=== PATIENT | male | born 1965 | race Caucasian/White ===

== ENCOUNTER 2018-10-24 14:14 | Emergency (ER) | payer BC ==
--- NOTE | 2018-10-24 15:12 | EDM.PDOC ---
ED HPI GENERAL MEDICAL PROBLEM - General Chief Complaint: Upper Extremity Injury/Pain Stated Complaint: LEFT SIDE NUMBNESS Time Seen by Provider: 10/24/18 14:31 Source of Information: Reports: Patient History Limitations: Reports: No Limitations - History of Present Illness INITIAL COMMENTS - FREE TEXT/NARRATIVE: HISTORY AND PHYSICAL: History of present illness: Patient is a 53 year old male who presents to the ED today for concerns of left hand numbness and tingling x 1 month. Patient states the symptoms are worse at night when he is trying to sleep and that he will wake up in the middle of the night with his hand numb. Patient has an appointment with his primary care provider next week for these symptoms. Patient has not taken anything for his pain and discomfort. Patient denies weakness of the arm or leg. He denies any facial weakness or numbness. Patient denies fever, chills, chest pain, shortness of breath, or cough. Denies headache, neck stiff ness, change in vision, syncope, or near syncope. Denies nausea, vomiting, abdominal pain, diarrhea, constipation, or dysuria. Has not noted any blood in urine or stool. Patient has been eating and drinking appropriately. Review of systems: As per history of present illness and below otherwise all systems reviewed and negative. Past medical history: As per history of present illness and as reviewed below otherwise noncontributory. Surgical history: As per history of present illness and as reviewed below otherwise noncontributory. Social history: See social history for further information Family history: As per history of present illness and as reviewed below otherwise noncontributory. Physical exam: General: Patient is alert, oriented, and in no acute distress. Patient sitting comfortably on exam table. HEENT: Atraumatic, normocephalic, pupils equal and reactive bilaterally, negative for conjunctival pallor or scleral icterus, mucous membranes moist, TMs normal bilaterally, throat clear, neck supple, nontender, trachea midline. No drooling or trismus noted. No meningeal signs. No hot potato voice noted. Lungs: Clear to auscultation, breath sounds equal bilaterally, chest nontender. Heart: S1S2, regular rate and rhythm without overt murmur Abdomen: Soft, nondistended, nontender. Negative for masses or hepatosplenomegaly. Negative for costovertebral tenderness. Pelvis: Stable nontender. Genitourinary: Deferred. Rectal: Deferred. Skin: Intact, warm, dry. No lesions or rashes noted. Extremities: Positive Phalen and Tinel sign of left hand. Radial pulse of left hand grossly intact. Capillary refill less than 2 seconds. Otherwise, atraumatic , negative for cords or calf pain. Neurovascular unremarkable. Neuro: Awake, alert, oriented. Cranial nerves II through XII unremarkable. Cerebellum unremarkable. Motor and sensory unremarkable throughout. Exam nonfocal. Notes: Patient's description of tingling and numbness in his hand was recurred on exam Phalen and Tinel sign. Did offer imaging to patient but he declines at this time. Supportive care measures were reviewed and discussed. Voices understanding and is agreeable to plan of care. Denies any further questions or concerns at this time. Diagnostics: None Therapeutics: Wrist splint cockup Prescription: None Impression: Carpal tunnel, right him Plan: 1. Rest the affected extremity. Apply splint provided today at night or as needed for comfort. 2. Tylenol and/or Ibuprofen as directed for pain management or discomfort. 3. Follow up with your primary care provider as discussed. Return to the ED as needed and as discussed. Definitive disposition and diagnosis as appropriate pending reevaluation and review of above. Left Arm Pain Score (Numeric/FACES): 3 - Related Data Allergies Allergy/AdvReac Type Severity Reaction Status Date / Time Anesthetics - Brenna Type- Allergy Chest Pain Verified 08/17/18 14:21 Parabens [Anesthetics - Brenna Type] morphine Allergy Other Verified 08/17/18 14:21 Home Meds: Home Meds Lisinopril 5 mg PO DAILY 10/24/18 [History] Tadalafil [Cialis] 1 tab PO DAILY 10/24/18 [History] amLODIPine [Norvasc] 1 tab PO DAILY 10/24/18 [History] Past Medical History Cardiovascular History: Reports: Hypertension Other Gastrointestinal History: pyloric stenosis as a child - Infectious Disease History Infectious Disease History: Reports: Chicken Pox - Past Surgical History Other Musculoskeletal Surgeries/Procedures:: right femer Social & Family History - Family History Family Medical History: Noncontributory - Tobacco Use Smoking Status *Q: Never Smoker - Caffeine Use Caffeine Use: Reports: Coffee, Tea - Recreational Drug Use Recreational Drug Use: No Review of Systems - Review of Systems Review Of Systems: ROS reveals no pertinent complaints other than HPI. ED EXAM, GENERAL - Physical Exam Exam: See Below (see dictation) Course - Vital Signs Last Recorded V/S: Last Vital Signs Temp 36.2 C 10/24/18 14:22 Pulse 80 10/24/18 14:22 Resp 18 10/24/18 14:22 BP 147/90 H 10/24/18 14:22 Pulse Ox 99 10/24/18 14:22 - Orders/Labs/Meds Orders: Active Orders 24 hr Category Date Time Status DME for Discharge [COMM] Stat Oth 10/24/18 15:12 Ordered Departure - Departure Time of Disposition: 15:12 Disposition: Home, Self-Care 01 Clinical Impression: Carpal tunnel syndrome of left wrist - Discharge Information Instructions: Carpal Tunnel Syndrome Referrals: Odell Tirado MD [Primary Care Provider] - Forms: ED Department Discharge Additional Instructions: The following information is given to patients seen in the emergency department who are being discharged to home. This information is to outline your options for follow-up care. We provide all patients seen in our emergency department with a follow-up referral. The need for follow-up, as well as the timing and circumstances, are variable depending upon the specifics of your emergency department visit. If you don't have a primary care physician on staff, we will provide you with a referral. We always advise you to contact your personal physician following an emergency department visit to inform them of the circumstance of the visit and for follow-up with them and/or the need for any referrals to a consulting specialist. The emergency department will also refer you to a specialist when appropriate. This referral assures that you have the opportunity for follow-up care with a specialist. All of these measure are taken in an effort to provide you with optimal care, which includes your follow-up. Under all circumstances we always encourage you to contact your private physician who remains a resource for coordinating your care. When calling for follow-up care, please make the office aware that this follow-up is from your recent emergency room visit. If for any reason you are refused follow-up, please contact the [facility] at and asked to speak to the emergency department charge nurse. [facility] [address] [place] [address] [id number] [address] [address] 1. Rest the affected extremity. Apply splint provided today at night or as needed for comfort. 2. Tylenol and/or Ibuprofen as directed for pain management or discomfort. 3. Follow up with your primary care provider as discussed. Return to the ED as needed and as discussed. - My Orders Last 24 Hours: My Active Orders 10/24/18 15:12 DME for Discharge [COMM] Stat - Assessment/Plan Last 24 Hours: My Active Orders 10/24/18 15:12 DME for Discharge [COMM] Stat
[2018-10-24 15:35] VITALS: BP 162/99
== END 2018-10-24 15:35 | disposition home or self-care (01) ==
LOC: MW.ED 14:14
DX: G56.02 Carpal tunnel syndrome, left upper limb (principal); I10 Essential (primary) hypertension; Z88.4 Allergy status to anesthetic agent; Z88.5 Allergy status to narcotic agent
CPT/HCPCS: 99282; 99283

== ENCOUNTER 2019-08-18 11:55 | Emergency (ER) | payer BC ==
[2019-08-18] MEDS ORDERED: Sodium Chloride 0.9% 10 ML Syringe FLUSH PRN (12:03)
[2019-08-18] MEDS ORDERED: Sodium Chloride 0.9% 2.5 ML Syringe FLUSH PRN (12:03)
[2019-08-18] MEDS ORDERED: Lactated Ringers 1,000 ML IV STA (12:42)
--- NOTE | 2019-08-18 12:42 | EDM.PDOC ---
ED HPI GENERAL MEDICAL PROBLEM - General Chief Complaint: Abdominal Pain Stated Complaint: ABDOMINAL PAIN Time Seen by Provider: 08/18/19 12:02 Source of Information: Reports: Patient History Limitations: Reports: No Limitations - History of Present Illness INITIAL COMMENTS - FREE TEXT/NARRATIVE: HISTORY AND PHYSICAL: History of present illness: Patient is a 53-year-old male who presents to the emergency room with complaints of right lower quadrant pain x3 days. He states that the pain has been fluctuating between sharp and dull. He has had some decrease in appetite and dull nausea. Patient denies any fever, chills, headache, change in vision, syncope or near syncope. Denies any chest pain, back pain, shortness of breath or cough. Denies any vomiting, diarrhea, constipation or dysuria. Has not noted any blood in urine or stool. Patient has been eating and drinking appropriately. States he is a daily drinker, drinking 2-3 beverages per night. Review of systems: As per history of present illness and below otherwise all systems reviewed and negative. Past medical history: As per history of present illness and as reviewed below otherwise noncontributory. Surgical history: As per history of present illness and as reviewed below otherwise noncontributory. Social history: See social history for further information Family history: As per history of present illness and as reviewed below otherwise noncontributory. Physical exam: General: Well-developed and well-nourished 53-year-old male. Alert and oriented. Nontoxic-appearing and in no acute distress. HEENT: Atraumatic, normocephalic, pupils equal and reactive bilaterally, negative for conjunctival pallor or scleral icterus, mucous membranes moist, TMs normal bilaterally, throat clear, neck supple, nontender, trachea midline. No drooling or trismus noted. No meningeal signs. No hot potato voice noted. Lungs: Clear to auscultation, breath sounds equal bilaterally, chest nontender. Heart: S1S2, regular rate and rhythm without overt murmur Abdomen: Soft, nondistended, right lower quadrant pain with mild rebound tenderness. Negative for masses or hepatosplenomegaly. Negative for costovertebral tenderness. Skin: Intact, warm, dry. No lesions or rashes noted. Extremities: Atraumatic, moves all extremities per self without difficulty or deficits, negative for cords or calf pain. Neurovascular unremarkable. Neuro: Awake, alert, oriented. Cranial nerves II through XII unremarkable. Cerebellum unremarkable. Motor and sensory unremarkable throughout. Exam nonfocal. Notes: Declines wanting anything for pain at this time. Full to lab and CT. Lab work and CT of the abdomen and pelvis are unremarkable. Vital signs remained stable. Supportive care measures were reviewed and discussed. Voices understanding and is agreeable to plan of care. Denies any further questions or concerns at this time. Diagnostics: CBC, CMP, Lipase, UA, CT abd/pelvis Therapeutics: LR Prescription: None Impression: Abdominal Pain Plan: 1. White diet, advance as tolerated. Increase your oral fluids to prevent dehydration 2. Tylenol and/or Ibuprofen as needed for pain 3. Follow up with your primary care provider as we discussed. Return to the ED as needed as discussed. Definitive disposition and diagnosis as appropriate pending reevaluation and review of above. RLQ Pain Score (Numeric/FACES): 4 - Related Data Allergies Allergy/AdvReac Type Severity Reaction Status Date / Time Anesthetics - Brenna Type- Allergy Chest Pain Verified 08/18/19 12:18 Parabens [Anesthetics - Brenna Type] morphine Allergy Other Verified 08/18/19 12:18 Home Meds: Home Meds . [No Known Home Meds] 08/18/19 [History] Past Medical History Cardiovascular History: Reports: Hypertension Other Gastrointestinal History: pyloric stenosis as a child - Infectious Disease History Infectious Disease History: Reports: Chicken Pox - Past Surgical History Other Musculoskeletal Surgeries/Procedures:: right femer Social & Family History - Family History Family Medical History: Noncontributory - Tobacco Use Smoking Status *Q: Never Smoker Second Hand Smoke Exposure: No - Caffeine Use Caffeine Use: Reports: None - Recreational Drug Use Recreational Drug Use: No ED ROS GENERAL - Review of Systems Review Of Systems: Comprehensive ROS is negative, except as noted in HPI. ED EXAM, GI/ABD - Physical Exam Exam: See Below (See dictation) Course - Vital Signs Last Recorded V/S: Last Vital Signs Temp 98.9 F 08/18/19 12:19 Pulse 74 08/18/19 12:19 Resp 16 08/18/19 12:19 BP 171/85 H 08/18/19 12:19 Pulse Ox 98 08/18/19 12:19 - Orders/Labs/Meds Orders: Active Orders 24 hr Category Date Time Status Lactated Ringers [Ringers, Lactated] 1,000 ml Med 08/18/19 12:42 Active IV NOW Sodium Chloride 0.9% [Saline Flush] Med 08/18/19 12:03 Active 10 ml FLUSH ASDIRECTED PRN Sodium Chloride 0.9% [Saline Flush] Med 08/18/19 12:03 Active 2.5 ml FLUSH ASDIRECTED PRN Saline Lock Insert [OM.PC] Stat Oth 08/18/19 12:03 Ordered Medication Orders Lactated Ringer's (Ringers, Lactated) 1,000 mls @ 200 mls/hr IV NOW STA Stop: 08/18/19 17:41 Last Admin: 08/18/19 12:45 Dose: 200 mls/hr Sodium Chloride (Saline Flush) 10 ml FLUSH ASDIRECTED PRN PRN Reason: Keep Vein Open Sodium Chloride (Saline Flush) 2.5 ml FLUSH ASDIRECTED PRN PRN Reason: Keep Vein Open Labs: Laboratory Tests 08/18/19 08/18/19 08/18/19 Range/Units 12:50 12:50 13:25 WBC 4.77 (4.0-11.0) K/uL RBC 4.98 (4.50-5.90) M/uL Hgb 15.4 (13.0-17.0) g/dL Hct 47.3 (38.0-50.0) % MCV 95.0 (80.0-98.0) fL MCH 30.9 (27.0-32.0) pg MCHC 32.6 (31.0-37.0) g/dL RDW Std Deviation 47.7 (28.0-62.0) fl RDW Coeff of Leila 14 (11.0-15.0) % Plt Count 226 (150-400) K/uL MPV 10.60 (7.40-12.00) fL Neut % (Auto) 62.5 (48.0-80.0) % Lymph % (Auto) 25.2 (16.0-40.0) % [place] % (Auto) 10.3 (0.0-15.0) % Eos % (Auto) 1.0 (0.0-7.0) % Baso % (Auto) 1.0 (0.0-1.5) % Neut # (Auto) 3.0 (1.4-5.7) K/uL Lymph # (Auto) 1.2 (0.6-2.4) K/uL [place] # (Auto) 0.5 (0.0-0.8) K/uL Eos # (Auto) 0.1 (0.0-0.7) K/uL Baso # (Auto) 0.1 (0.0-0.1) K/uL Nucleated RBC % 0.0 /100WBC Nucleated RBCs # 0 K/uL Sodium 141 (136-148) mmol/L Potassium 4.1 (3.5-5.1) mmol/L Chloride 106 (98-107) mmol/L Carbon Dioxide 26.3 (21.0-32.0) mmol/L BUN 11 (7.0-18.0) mg/dL Creatinine 0.9 (0.8-1.3) mg/dL Est Cr Clr Drug Dosing 86.64 mL/min Estimated GFR (MDRD) > 60.0 ml/min Glucose 101 (74-106) mg/dL Calcium 8.7 (8.5-10.1) mg/dL Total Bilirubin 1.1 H (0.2-1.0) mg/dL AST 24 (15-37) IU/L ALT 38 (14-63) IU/L Alkaline Phosphatase 83 (46-116) U/L Total Protein 7.5 (6.4-8.2) g/dL Albumin 3.8 (3.4-5.0) g/dL Globulin 3.7 (2.6-4.0) g/dL Albumin/Globulin Ratio 1.0 (0.9-1.6) Lipase 151 (73-393) U/L Urine Color YELLOW Urine Appearance CLEAR Urine pH 6.0 (5.0-8.0) Ur Specific [place] 1.020 (1.001-1.035) Urine Protein NEGATIVE (NEGATIVE) mg/dL Urine Glucose (UA) NEGATIVE (NEGATIVE) mg/dL Urine Ketones NEGATIVE (NEGATIVE) mg/dL Urine Occult Blood NEGATIVE (NEGATIVE) Urine Nitrite NEGATIVE (NEGATIVE) Urine Bilirubin NEGATIVE (NEGATIVE) Urine Urobilinogen 1.0 (<2.0) EU/dL Ur Leukocyte Esterase NEGATIVE (NEGATIVE) Meds: Medications Generic Name Dose Route Start Last Admin Trade Name Freq PRN Reason Stop Dose Admin Lactated Ringer's 1,000 mls @ 200 mls/hr 08/18/19 12:42 08/18/19 12:45 Ringers, Lactated IV 08/18/19 17:41 200 mls/hr NOW STA Administration Sodium Chloride 10 ml 08/18/19 12:03 Saline Flush FLUSH ASDIRECTED PRN Keep Vein Open Sodium Chloride 2.5 ml 08/18/19 12:03 Saline Flush FLUSH ASDIRECTED PRN Keep Vein Open Discontinued Medications Generic Name Dose Route Start Last Admin Trade Name Freq PRN Reason Stop Dose Admin Iopamidol 100 ml 08/18/19 14:55 08/18/19 14:56 Isovue Multipack-370 (76%) IVPUSH 08/18/19 14:56 100 ml ONETIME ONE Administration Departure - Departure Time of Disposition: 15:31 Disposition: Home, Self-Care 01 Clinical Impression: Abdominal pain Qualifiers: Abdominal location: generalized Qualified Code(s): R10.84 - Generalized abdominal pain - Discharge Information Instructions: Abdominal Pain, Adult, [id number] Referrals: Odell Tirado MD [Primary Care Provider] - Forms: ED Department Discharge Additional Instructions: The following information is given to patients seen in the emergency department who are being discharged to home. This information is to outline your options for follow-up care. We provide all patients seen in our emergency department with a follow-up referral. The need for follow-up, as well as the timing and circumstances, are variable depending upon the specifics of your emergency department visit. If you don't have a primary care physician on staff, we will provide you with a referral. We always advise you to contact your personal physician following an emergency department visit to inform them of the circumstance of the visit and for follow-up with them and/or the need for any referrals to a consulting specialist. The emergency department will also refer you to a specialist when appropriate. This referral assures that you have the opportunity for follow-up care with a specialist. All of these measure are taken in an effort to provide you with optimal care, which includes your follow-up. Under all circumstances we always encourage you to contact your private physician who remains a resource for coordinating your care. When calling for follow-up care, please make the office aware that this follow-up is from your recent emergency room visit. If for any reason you are refused follow-up, please contact the [facility] Department at and asked to speak to the emergency department charge nurse. [facility] [address] [place] [address] [facility] [address] [place] [id number] 1. All labs and imagining were normal today. White diet, advance as tolerated. Increase your oral fluids to prevent dehydration 2. Tylenol and/or Ibuprofen as needed for pain 3. Follow up with your primary care provider as we discussed. Return to the ED as needed as discussed. Sepsis Event Note - Evaluation Sepsis Screening Result: No Definite Risk - Focused Exam Vital Signs: Vital Signs Temp Pulse Resp BP Pulse Ox 08/18/19 12:19 98.9 F 74 16 171/85 H 98 Date Exam was Performed: 08/18/19 Time Exam was Performed: 15:30 - My Orders Last 24 Hours: My Active Orders 08/18/19 12:03 Sodium Chloride 0.9% [Saline Flush] 10 ml FLUSH ASDIRECTED PRN Sodium Chloride 0.9% [Saline Flush] 2.5 ml FLUSH ASDIRECTED PRN Saline Lock Insert [OM.PC] Stat 08/18/19 12:42 Lactated Ringers [Ringers, Lactated] 1,000 ml IV NOW - Assessment/Plan Last 24 Hours: My Active Orders 08/18/19 12:03 Sodium Chloride 0.9% [Saline Flush] 10 ml FLUSH ASDIRECTED PRN Sodium Chloride 0.9% [Saline Flush] 2.5 ml FLUSH ASDIRECTED PRN Saline Lock Insert [OM.PC] Stat 08/18/19 12:42 Lactated Ringers [Ringers, Lactated] 1,000 ml IV NOW
[2019-08-18 14:06] LABS: BLOOD UREA NITROGEN,BUN 11 mg/dL (7.0-18.0); CARBON DIOXIDE,CO2 26.3 mmol/L (21.0-32.0); CHLORIDE,CL 106 mmol/L (98-107); GLUCOSE RANDOM 101 mg/dL (74-106); LIPASE 151 U/L (73-393); POTASSIUM,K 4.1 mmol/L (3.5-5.1); SODIUM,NA 141 mmol/L (136-148)
[2019-08-18] MEDS ORDERED: Iopamidol 755 MG/ML 200 ML Multipack Bottle IVPUSH ONE (14:55)
--- NOTE | 2019-08-18 15:25 | CT ---
CT abdomen and pelvis Technique: Multiple axial sections were obtained from above the dome of the diaphragm inferiorly through the pubic symphysis. Intravenous contrast was utilized. No oral contrast has been given. Findings: Small hiatal hernia is noted. Visualized lung bases show nothing acute. Liver contains no focal abnormality. Spleen appears within normal limits. Adrenal glands show no nodule. Pancreas is within normal limits. Gallbladder contains no calcified gallstones. Kidneys show symmetric contrast enhancement without hydronephrosis or mass. Aorta shows no aneurysm. No retroperitoneal adenopathy or mesenteric abnormalities are seen. No pelvic mass or adenopathy is seen. No free fluid or inflammatory change is seen. Mild diverticuli are seen within the sigmoid colon without diverticulitis. Appendix is seen and felt to be normal in size with no surrounding inflammatory change.. Bone window settings were reviewed which appear within normal limits for the patient's age. Impression: 1. Appendix is seen and is normal in size without any surrounding inflammatory change. 2. Other findings believed to be incidental as noted above. 3. Nothing acute is appreciated on CT study of the abdomen and pelvis. Diagnostic code #2 This report was dictated in [place] Standard Time
[2019-08-18 15:48] VITALS: BP 160/78; PULSE 80
== END 2019-08-18 15:49 | disposition home or self-care (01) ==
LOC: MW.ED 11:55
DX: R10.84 Generalized abdominal pain (principal); R10.31 Right lower quadrant pain; I10 Essential (primary) hypertension; Z88.5 Allergy status to narcotic agent; Z88.8 Allergy status to other drugs, medicaments and biological substances
CPT/HCPCS: 36415; 74177; 80053; 81003; 83690; 85025; 96360; 96361; 99284; J7120; Q9967

== ENCOUNTER 2020-08-03 10:17 | Emergency (ER) | payer SELFPAY ==
[2020-08-03] MEDS ORDERED: Sodium Chloride 0.9% 10 ML Syringe FLUSH PRN (10:44)
[2020-08-03] MEDS ORDERED: Sodium Chloride 0.9% 2.5 ML Syringe FLUSH PRN (10:44)
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
[2020-08-03] MEDS ORDERED: Ondansetron 4 MG/2 ML SDV IVPUSH ONE (10:45)
[2020-08-03] MEDS ORDERED: Lactated Ringers 1,000 ML IV ONE (10:45)
[2020-08-03] MEDS ORDERED: fentaNYL 50 MCG/ML SDV IVPUSH ONE (10:46)
[2020-08-03 11:36] LABS: BLOOD UREA NITROGEN,BUN 9 mg/dL (7.0-18.0); CARBON DIOXIDE,CO2 23.7 mmol/L (21.0-32.0); CHLORIDE,CL 106 mmol/L (98-107); GLUCOSE RANDOM 84 mg/dL (74-106); LIPASE 111 U/L (73-393); POTASSIUM,K 3.7 mmol/L (3.5-5.1); SODIUM,NA 141 mmol/L (136-148)
[2020-08-03] MEDS ORDERED: Iopamidol 755 MG/ML 500 ML Multipack Bottle IVPUSH STA (12:06)
--- NOTE | 2020-08-03 12:48 | CT ---
INDICATION: Trauma 1 week ago with bruising COMPARISON: Portions of a August 18, 2019 examination TECHNIQUE: CT examination of the abdomen and pelvis was performed following the uneventful intravenous administration of 100 cc of Isovue through set. Thin section axial images were obtained from the lung bases through the pubic symphysis. Oral contrast was not administered. Please note that all CT scans at this facility use dose modulation, iterative reconstruction, and/or weight-based dosing when appropriate to reduce radiation dose to as low as reasonably achievable. FINDINGS: LUNG BASES: The lung bases as visualized appear normal.The heart size is normal at the lung bases. LIVER/BILIARY SYSTEM:The liver is normal in size and configuration. There is no focal mass and there is no intra- or extra hepatic biliary ductal dilatation.The gall bladder appears normal. There is hepatic steatosis. ADRENALS: Normal KIDNEYS, URETERS and BLADDER:The kidneys appear normal. No visible mass, calculus or hydronephrosis. The ureters and bladder as visualized appear normal. SPLEEN:Normal appearance. PANCREAS: Appears normal. RETROPERITONEUM and MESENTERY: There is no mass, adenopathy or aortic aneurysm. GASTROINTESTINAL SYSTEM: There is no evidence of diverticulitis, colitis, mechanical obstruction, or appendicitis. The small bowel as visualized appears normal.Mild fecal retention and scattered diverticulosis PELVIS: No mass, adenopathy or free fluid. OSSEOUS STRUCTURES and ABDOMINAL WALL: There is an age-appropriate appearance of the osseous structures.Induration of the abdominal wall specially inferolateral left consistent with bruising. No collection OTHER: No free fluid or free air. IMPRESSION: Bruising of the abdominal wall. This appears to be entirely subcutaneous. No posttraumatic injuries internally. Please note that all CT scans at this facility use dose modulation, iterative reconstruction, and/or weight-based dosing when appropriate to reduce radiation dose to as low as reasonably achievable. Dictated by Gagan Lewis MD @ Aug 03 2020 12:38PM Signed by Dr. Gagan Lweis @ Aug 03 2020 12:47PM
[2020-08-03 13:35] VITALS: BP 156/78; PULSE 74
== END 2020-08-03 13:34 | disposition home or self-care (01) ==
LOC: MW.ED 10:17
DX: S30.1XXA Contusion of abdominal wall, initial encounter (principal); S69.92XA Unspecified injury of left wrist, hand and finger(s), initial encounter; I10 Essential (primary) hypertension; Z88.4 Allergy status to anesthetic agent; Z88.5 Allergy status to narcotic agent; Z79.899 Other long term (current) drug therapy; W22.8XXA Striking against or struck by other objects, initial encounter; Y99.0 Civilian activity done for income or pay
CPT/HCPCS: 29125; 36415; 74177; 80053; 81003; 83605; 83690; 83735; 85025; 85610; 99284; J7120; Q9967; 99283

== ENCOUNTER 2021-05-12 03:52 | Inpatient (IN) | payer SELFPAY ==
[2021-05-12] MEDS ORDERED: PHENobarbitaL sodium 260 MG in Sodium Chloride 0.9% 100 ML IV ONE ×3 (04:29→05:28)
[2021-05-12] MEDS ORDERED: Ondansetron 4 MG/2 ML SDV IVPUSH ONE ×2 (04:32→05:44)
[2021-05-12] MEDS ORDERED: Thiamine 200 MG/2 ML MDV IVPUSH ONE (04:35)
[2021-05-12] MEDS ORDERED: PHENobarbital Sodium 130 MG/ML SDV ONE ×3 (04:40→04:57)
[2021-05-12] MEDS ORDERED: Dextrose 5%-0.9% NaCl 1,000 ML IV SCH ×2 (04:45→07:00)
[2021-05-12 04:59] LABS: BLOOD UREA NITROGEN,BUN 14 mg/dL (7.0-18.0); CARBON DIOXIDE,CO2 19.5 mmol/L (21.0-32.0); CHLORIDE,CL 89 mmol/L (98-107); GLUCOSE RANDOM 103 mg/dL (74-106); LIPASE 134 U/L (73-393); POTASSIUM,K 4.2 mmol/L (3.5-5.1); SODIUM,NA 131 mmol/L (136-148)
[2021-05-12] MEDS ORDERED: Sodium Chloride 0.9% 100 ML ONE (05:00)
[2021-05-12] MEDS ORDERED: LORazepam 2 MG/ML SDV IVPUSH ONE ×2 (05:44→08:14)
--- NOTE | 2021-05-12 05:44 | EDM.PDOC ---
ED HPI GENERAL MEDICAL PROBLEM - General Chief Complaint: Drug or Alcohol Abuse Stated Complaint: CANT HOLD DOWN WATER, NAUSEA, VOMITING Time Seen by Provider: 05/12/21 04:17 - History of Present Illness INITIAL COMMENTS - FREE TEXT/NARRATIVE: CHIEF COMPLAINT(S): "I tried to detox." HISTORY OF PRESENT ILLNESS: This is a 55-year-old man without any significant past medical history who comes to the emergency department with a chief complaint of "I tried to detox." The patient states that for the last 2 months since he has been unemployed he has been drinking approximately 2/5 of vodka per week including one case of beer. He states that approximately 5 days ago he quit alcohol cold turkey and he started to shake experience nausea and vomiting. He denies any seizures but may have had a episode where he passed out. He denies any chest pain, shortness of breath, abdominal pain. He states that he is unable to tolerate any p.o. and has been vomiting. He said he is shaking so much and that is why he came to the emergency department. He denies any prior history of alcohol use or alcohol withdrawal. He states that his last drink was earlier this morning with a glass of wine and one beer. He denies any abdominal pain, hematemesis, melena or hematochezia. REVIEW OF SYSTEMS: Constitutional: Denies fever, chills. Eyes: Denies eye pain Ears, Nose, Mouth, & Throat: Denies earache Cardiovascular: Denies chest pain Respiratory: Denies shortness of breath Gastrointestinal: Positive for nausea and vomiting. Denies diarrhea, hematochezia, melena, hematemesis, bilious emesis Genitourinary: Denies hematuria Skin:Denies a rash MSK: Positive for tremors. Denies joint pain Neurological: Denies blurred vision Psychiatric: Denies depression PAST MEDICAL HISTORY: As per history of present illness and as reviewed below otherwise noncontributory. SURGICAL HISTORY: As per history of present illness and as reviewed below otherwise noncontributory. SOCIAL HISTORY: As per history of present illness and as reviewed below otherwise noncontributory. FAMILY HISTORY: As per history of present illness and as reviewed below otherwise noncontributory. EXAMINATION OF ORGAN SYSTEMS/BODY AREAS: Constitutional: Blood pressure is 192/119, heart rate 112, respiratory rate 20 with an oxygen saturation of 97% on room air. Temperature 36.1 General: Anxious appearing man who is in no acute distress otherwise Psychiatric: Anxious appearing but cooperative. Eyes: No scleral icterus or conjunctival erythema pupils are equal round reactive to light. Extraocular movements intact. ENMT: Moist mucous membranes. No pharyngeal erythema severe tongue fasciculations. Cardiovascular: Tachycardic but regular no gallops, murmurs, or rubs. Bilateral upper extremity pulses symmetric and intact. No peripheral edema. No JVD. Respiratory: Lungs clear to auscultation bilaterally. No wheezes, rales, or rhonchi. Gastrointestinal: Soft, non-tender, non-distended. Normoactive bowel sounds Genitourinary: No suprapubic tenderness Musculoskeletal: Normal range of motion. Significant tremors with hands extended. Skin: No lesions or abrasions. Neurological: Alert, GCS 15 strength and sensation grossly intact in upper and lower extremities bilaterally MEDICAL DECISION MAKING AND COURSE IN THE ED WITH INTERPRETATION/REVIEW OF DIAGNOSTIC STUDIES: This is a 55-year-old man with a past medical history of excessive alcohol use over the last 2 months who comes to the emergency department with what appears to be acute alcohol withdrawal who is tachycardic and hypertensive with a CIWA score of 8. At this time we will titrate phenobarbital dosing at 260 mg each dose. We can bolus 10 mg/kg initially however we will titrate 3 doses over 10 minutes each time. We will reevaluate the response. Given his alcohol use we will provide the patient with 1 L of D5 normal saline and provide the patient with 50 mg of IV thiamine. Also obtain labs including CBC, CMP, ammonia, INR, urinalysis. Will obtain a CT abdomen pelvis with contrast for further evaluation. We will start the patient on maintenance fluids after this at 150 cc/h. After 3 doses of phenobarbital the patient's symptoms did improve however his C IWA was still 7 therefore we will provide the patient with 2 mg of Ativan and reevaluate. Laboratory: CMP reveals hyponatremia 131, hypochloremia 89, metabolic acidosis with a bicarbonate of 19.5 likely secondary to ketoacidosis, elevated bilirubin at 4.4 with a transaminitis with an AST of 237, ALT of 220 and alkaline phosphatase of 153. This is likely secondary to alcoholic hepatitis. Lipase is normal at 134. Urinalysis reveals ketonuria. INR is 0.95. On reevaluation patient CIWA score did decrease down to 6. We will hold off on additional medication administration. CBC reveals thrombocytopenia with a platelet count of 141. The radiological images were viewed by myself along with reading the report from the radiologist. CT abdomen pelvis with contrast does not reveal any acute intra-abdominal process. There is severe hepatomegaly and hepatic steatosis. There is marked thickening of the visualized mid esophagus with associated adenopathy which could represent underlying esophagitis however underlying malignancy is not excluded. There is a small hiatal hernia with sequelae of chronic gastritis. Given the CT findings, the alcoholic hepatitis and alcohol withdrawal I do believe this is likely secondary to esophagitis and not likely due to a malignancy. We will treat the patient symptomatically and the patient can follow-up outpatient after discharge. He does not need an emergent endoscopy. We will provide the patient with famotidine and a GI cocktail. I contacted Dr. Ramirez and she accepted the patient for admission. DISPOSITION: Patient was admitted to the hospital in stable condition CONDITION: Serious PROCEDURES: None FINAL IMPRESSION(S)/DIAGNOSES: 1. Acute alcohol withdrawal 2. Acute alcoholic ketoacidosis 3. Acute alcoholic hepatitis Salazar Kim M.D. - Related Data Allergies Allergy/AdvReac Type Severity Reaction Status Date / Time Anesthetics - Brenna Type- Allergy Chest Pain Verified 05/12/21 04:11 Parabens [Anesthetics - Brenna Type] morphine Allergy Other Verified 05/12/21 04:11 Home Meds: Home Meds Naproxen [Naprosyn] 500 mg PO Q12HR #30 tab 08/03/20 [Rx] lisinopriL [Lisinopril] 1 tab PO DAILY 08/03/20 [History] tadalafiL [Tadalafil] 1 tab PO DAILY 08/03/20 [History] Past Medical History HEENT History: Reports: Impaired Vision Cardiovascular History: Reports: Hypertension Other Gastrointestinal History: pyloric stenosis as a child Psychiatric History: Reports: Addiction - Infectious Disease History Infectious Disease History: Reports: Chicken Pox, Measles - Past Surgical History GI Surgical History: Reports: Other (See Below) Other GI Surgeries/Procedures: pyloric stenosis as a child Other Musculoskeletal Surgeries/Procedures:: right femer Social & Family History - Family History Family Medical History: No Pertinent Family History - Caffeine Use Caffeine Use: Reports: Coffee - Recreational Drug Use Recreational Drug Use: Yes Drug Use in Last 12 Months: No ED ROS GENERAL - Review of Systems Review Of Systems: See Below ED EXAM, GENERAL - Physical Exam Exam: See Below Course - Vital Signs Last Recorded V/S: Last Vital Signs Temp 36.1 C 05/12/21 04:05 Pulse 116 H 05/12/21 06:48 Resp 20 05/12/21 06:48 BP 154/80 H 05/12/21 06:48 Pulse Ox 99 05/12/21 06:48 - Orders/Labs/Meds Orders: Active Orders 24 hr Category Date Time Status Cardiac Monitoring [RC] . DIRECTED Care 05/12/21 04:32 Active Pulse Oximetry [RC] ASDIRECTED Care 05/12/21 04:32 Active Dextrose 5%-0.9% NaCl [Dextrose 5%-Normal Saline] 1,000 Med 05/12/21 04:45 Active ml IV ASDIRECTED Dextrose 5%-0.9% NaCl [Dextrose 5%-Normal Saline] 1,000 Med 05/12/21 07:00 Active ml IV ASDIRECTED Sodium Chloride 0.9% [Normal Saline] 1,000 ml Med 05/12/21 05:45 Active IV ASDIRECTED Medication Orders Al Hydroxide/Mg Hydroxide 15 (ml/ Lidocaine HCl 5 ml) 0 ml PO ONETIME ONE Stop: 05/12/21 07:11 Dextrose/Sodium Chloride (Dextrose 5%-Normal Saline) 1,000 mls @ 999 mls/hr IV ASDIRECTED [facility] Last Admin: 05/12/21 04:47 Dose: 999 mls/hr Documented by: BRANDIE Sodium Chloride (Normal Saline) 1,000 mls @ 150 mls/hr IV ASDIRECTED [facility] Last Admin: 05/12/21 06:18 Dose: 150 mls/hr Documented by: BRANDIE Dextrose/Sodium Chloride (Dextrose 5%-Normal Saline) 1,000 mls @ 999 mls/hr IV ASDIRECTED [facility] Last Admin: 05/12/21 06:51 Dose: 999 mls/hr Documented by: BRANDIE Labs: Laboratory Tests 05/12/21 05/12/21 05/12/21 Range/Units 04:35 04:35 04:35 WBC 8.50 (4.0-11.0) K/uL RBC 4.87 (4.50-5.90) M/uL Hgb 16.0 (13.0-17.0) g/dL Hct 46.8 (38.0-50.0) % MCV 96.1 (80.0-98.0) fL MCH 32.9 H (27.0-32.0) pg MCHC 34.2 (31.0-37.0) g/dL RDW Std Deviation 47.8 (28.0-62.0) fl RDW Coeff of Leila 14 (11.0-15.0) % Plt Count 141 L (150-400) K/uL MPV 10.30 (7.40-12.00) fL Neut % (Auto) 75.6 (48.0-80.0) % Lymph % (Auto) 13.8 L (16.0-40.0) % [place] % (Auto) 10.1 (0.0-15.0) % Eos % (Auto) 0.0 (0.0-7.0) % Baso % (Auto) 0.5 (0.0-1.5) % Neut # (Auto) 6.4 H (1.4-5.7) K/uL Lymph # (Auto) 1.2 (0.6-2.4) K/uL [place] # (Auto) 0.9 H (0.0-0.8) K/uL Eos # (Auto) 0.0 (0.0-0.7) K/uL Baso # (Auto) 0.0 (0.0-0.1) K/uL Nucleated RBC % 0.0 /100WBC Nucleated RBCs # 0 K/uL INR 0.95 Sodium 131 L (136-148) mmol/L Potassium 4.2 (3.5-5.1) mmol/L Chloride 89 L (98-107) mmol/L Carbon Dioxide 19.5 L (21.0-32.0) mmol/L BUN 14 (7.0-18.0) mg/dL Creatinine 1.2 (0.8-1.3) mg/dL Est Cr Clr Drug Dosing 65.79 mL/min Estimated GFR (MDRD) > 60.0 ml/min Glucose 103 (74-106) mg/dL Calcium 9.5 (8.5-10.1) mg/dL Total Bilirubin 4.4 H (0.2-1.0) mg/dL AST 237 H (15-37) IU/L ALT 220 H (14-63) IU/L Alkaline Phosphatase 153 H (46-116) U/L Ammonia (19-54) ug/dL Total Protein 7.9 (6.4-8.2) g/dL Albumin 3.8 (3.4-5.0) g/dL Globulin 4.1 H (2.6-4.0) g/dL Albumin/Globulin Ratio 0.9 (0.9-1.6) Lipase 134 (73-393) U/L Urine Color Urine Appearance Urine pH (5.0-8.0) Ur Specific [place] (1.001-1.035) Urine Protein (NEGATIVE) mg/dL Urine Glucose (UA) (NEGATIVE) mg/dL Urine Ketones (NEGATIVE) mg/dL Urine Occult Blood (NEGATIVE) Urine Nitrite (NEGATIVE) Urine Bilirubin (NEGATIVE) Urine Ictotest Urine Urobilinogen (<2.0) EU/dL Ur Leukocyte Esterase (NEGATIVE) 05/12/21 05/12/21 Range/Units 05:38 06:30 WBC (4.0-11.0) K/uL RBC (4.50-5.90) M/uL Hgb (13.0-17.0) g/dL Hct (38.0-50.0) % MCV (80.0-98.0) fL MCH (27.0-32.0) pg MCHC (31.0-37.0) g/dL RDW Std Deviation (28.0-62.0) fl RDW Coeff of Leila (11.0-15.0) % Plt Count (150-400) K/uL MPV (7.40-12.00) fL Neut % (Auto) (48.0-80.0) % Lymph % (Auto) (16.0-40.0) % [place] % (Auto) (0.0-15.0) % Eos % (Auto) (0.0-7.0) % Baso % (Auto) (0.0-1.5) % Neut # (Auto) (1.4-5.7) K/uL Lymph # (Auto) (0.6-2.4) K/uL [place] # (Auto) (0.0-0.8) K/uL Eos # (Auto) (0.0-0.7) K/uL Baso # (Auto) (0.0-0.1) K/uL Nucleated RBC % /100WBC Nucleated RBCs # K/uL INR Sodium (136-148) mmol/L Potassium (3.5-5.1) mmol/L Chloride (98-107) mmol/L Carbon Dioxide (21.0-32.0) mmol/L BUN (7.0-18.0) mg/dL Creatinine (0.8-1.3) mg/dL Est Cr Clr Drug Dosing mL/min Estimated GFR (MDRD) ml/min Glucose (74-106) mg/dL Calcium (8.5-10.1) mg/dL Total Bilirubin (0.2-1.0) mg/dL AST (15-37) IU/L ALT (14-63) IU/L Alkaline Phosphatase (46-116) U/L Ammonia 37 (19-54) ug/dL Total Protein (6.4-8.2) g/dL Albumin (3.4-5.0) g/dL Globulin (2.6-4.0) g/dL Albumin/Globulin Ratio (0.9-1.6) Lipase (73-393) U/L Urine Color YELLOW Urine Appearance CLEAR Urine pH 5.5 (5.0-8.0) Ur Specific [place] >= 1.030 (1.001-1.035) Urine Protein NEGATIVE (NEGATIVE) mg/dL Urine Glucose (UA) 500 H (NEGATIVE) mg/dL Urine Ketones 40 H (NEGATIVE) mg/dL Urine Occult Blood NEGATIVE (NEGATIVE) Urine Nitrite NEGATIVE (NEGATIVE) Urine Bilirubin SMALL H (NEGATIVE) Urine Ictotest NEGATIVE Urine Urobilinogen 4.0 H (<2.0) EU/dL Ur Leukocyte Esterase NEGATIVE (NEGATIVE) Meds: Medications Generic Name Dose Route Start Last Admin Trade Name Freq PRN Reason Stop Dose Admin Al Hydroxide/Mg Hydroxide 15 0 ml 05/12/21 07:10 ml/ Lidocaine HCl 5 ml PO 05/12/21 07:11 ONETIME ONE Dextrose/Sodium Chloride 1,000 mls @ 999 mls/hr 05/12/21 04:45 05/12/21 04:47 Dextrose 5%-Normal Saline IV 999 mls/hr ASDIRECTED JANE Administration Sodium Chloride 1,000 mls @ 150 mls/hr 05/12/21 05:45 05/12/21 06:18 Normal Saline IV 150 mls/hr ASDIRECTED JANE Administration Dextrose/Sodium Chloride 1,000 mls @ 999 mls/hr 05/12/21 07:00 05/12/21 06:51 Dextrose 5%-Normal Saline IV 999 mls/hr ASDIRECTED JANE Administration Discontinued Medications Generic Name Dose Route Start Last Admin Trade Name Freq PRN Reason Stop Dose Admin Famotidine 20 mg 05/12/21 07:10 Famotidine 20 Mg Tab PO 05/12/21 07:11 ONETIME ONE Phenobarbital 260 mg/ Sodium 102 mls @ 200 mls/hr 05/12/21 04:29 05/12/21 04:45 Chloride IV 05/12/21 04:58 200 mls/hr ONETIME ONE Administration Phenobarbital 260 mg/ Sodium 102 mls @ 200 mls/hr 05/12/21 04:51 05/12/21 04:57 Chloride IV 05/12/21 05:20 200 mls/hr ONETIME ONE Administration Sodium Chloride Confirm 05/12/21 05:00 05/12/21 05:31 Normal Saline Advbag Administered 05/12/21 05:01 Not Given Dose 100 mls @ as directed .ROUTE .STK-MED ONE Phenobarbital 260 mg/ Sodium 102 mls @ 200 mls/hr 05/12/21 05:28 05/12/21 05:32 Chloride IV 05/12/21 05:57 200 mls/hr ONETIME ONE Administration Iopamidol 100 ml 05/12/21 06:21 05/12/21 06:22 Iopamidol 755 Mg/Ml 500 Ml Multipack Bottle IVPUSH 05/12/21 06:22 100 ml ONETIME STA Administration Lorazepam 2 mg 05/12/21 05:44 05/12/21 05:52 Lorazepam 2 Mg/Ml Sdv IVPUSH 05/12/21 05:45 2 mg ONETIME ONE Administration Ondansetron HCl 4 mg 05/12/21 04:32 05/12/21 04:44 Ondansetron 4 Mg/2 Ml Sdv IVPUSH 05/12/21 04:33 4 mg ONETIME ONE Administration Ondansetron HCl 4 mg 05/12/21 05:44 05/12/21 05:52 Ondansetron 4 Mg/2 Ml Sdv IVPUSH 05/12/21 05:45 4 mg ONETIME ONE Administration Phenobarbital Confirm 05/12/21 04:40 05/12/21 04:45 Phenobarbital Sodium 130 Mg/Ml Sdv Administered 05/12/21 04:41 Not Given Dose 260 mg .ROUTE .STK-MED ONE Phenobarbital Confirm 05/12/21 04:53 05/12/21 04:56 Phenobarbital Sodium 130 Mg/Ml Sdv Administered 05/12/21 04:54 Not Given Dose 260 mg .ROUTE .STK-MED ONE Phenobarbital Confirm 05/12/21 04:57 05/12/21 05:31 Phenobarbital Sodium 130 Mg/Ml Sdv Administered 05/12/21 04:58 Not Given Dose 260 mg .ROUTE .STK-MED ONE Thiamine HCl 50 mg 05/12/21 04:35 05/12/21 04:49 Thiamine 200 Mg/2 Ml Mdv IVPUSH 05/12/21 04:36 50 mg ONETIME ONE Administration Departure - Departure Time of Disposition: 07:15 Disposition: Admitted As Inpatient 67 Condition: Fair, Serious Clinical Impression: Alcohol withdrawal syndrome - Discharge Information Referrals: PCP,None [Primary Care Provider] - Forms: ED Department Discharge Sepsis Event Note (ED) - Evaluation Sepsis Screening Result: No Definite Risk - Focused Exam Vital Signs: Vital Signs Temp Pulse Resp BP Pulse Ox 05/12/21 06:48 116 H 20 154/80 H 99 05/12/21 06:27 112 H 19 144/78 H 97 05/12/21 05:30 110 H 19 138/76 98 05/12/21 05:09 102 H 18 155/83 H 99 05/12/21 05:01 112 H 19 165/90 H 99 05/12/21 04:53 107 H 20 149/83 H 98 05/12/21 04:23 114 H 22 H 152/91 H 100 05/12/21 04:05 36.1 C 112 H 20 192/119 H 97 - My Orders Last 24 Hours: My Active Orders 05/12/21 04:32 Cardiac Monitoring [RC] . DIRECTED Pulse Oximetry [RC] ASDIRECTED 05/12/21 04:45 Dextrose 5%-0.9% NaCl [Dextrose 5%-Normal Saline] 1,000 ml IV ASDIRECTED 05/12/21 05:45 Sodium Chloride 0.9% [Normal Saline] 1,000 ml IV ASDIRECTED 05/12/21 07:00 Dextrose 5%-0.9% NaCl [Dextrose 5%-Normal Saline] 1,000 ml IV ASDIRECTED - Assessment/Plan Last 24 Hours: My Active Orders 05/12/21 04:32 Cardiac Monitoring [RC] . DIRECTED Pulse Oximetry [RC] ASDIRECTED 05/12/21 04:45 Dextrose 5%-0.9% NaCl [Dextrose 5%-Normal Saline] 1,000 ml IV ASDIRECTED 05/12/21 05:45 Sodium Chloride 0.9% [Normal Saline] 1,000 ml IV ASDIRECTED 05/12/21 07:00 Dextrose 5%-0.9% NaCl [Dextrose 5%-Normal Saline] 1,000 ml IV ASDIRECTED
[2021-05-12] MEDS: Sodium Chloride 0.9% 1,000 ML IV SCH ×2 (06:18→22:30)
[2021-05-12] MEDS ORDERED: Iopamidol 755 MG/ML 500 ML Multipack Bottle IVPUSH STA (06:21)
--- NOTE | 2021-05-12 07:02 | CT ---
Indication: Elevated bilirubin Technique: Volumetric multidetector CT images of the abdomen and pelvis were obtained after the administration of intravenous contrast. 100 cc Isovue 370 low osmolar intravenous contrast Comparison: CT abdomen and pelvis August 03, 2020 Findings: There is bibasilar atelectasis versus parenchymal scar. The liver is moderately enlarged with extensive hepatic steatosis. There is no intrahepatic biliary ductal dilatation. The portal vein is patent. The gallbladder is unremarkable without evidence of radiopaque calculus. There is no significant common biliary ductal dilatation or abrupt cut off. The spleen is normal in enhancement and size. There is mild thickening of the gastric antrum and mucosal hyperemia commensurate with likely gastritis changes. There is marked thickening of the partially visualized esophagus with associated paraesophageal adenopathy commensurate with likely marked esophagitis changes. Underlying neoplasm may be difficult to exclude. There is [id number] atrophy of the pancreas. The adrenal glands are unremarkable. The kidneys demonstrate preserved corticomedullary differentiation without evidence of obstructive uropathy. There is moderate stool seen throughout the colon with distal colonic diverticulosis without evidence of diverticulitis. There is somewhat decompressed appearing cecum with nonspecific fatty changes which can be seen in the setting of prior inflammation. Otherwise the small bowel is unremarkable. The appendix is unremarkable. There is no significant mesenteric, retroperitoneal, or pelvic sidewall lymph nodes. The aorta is nonaneurysmal. There is no significant atherosclerotic disease appreciated. The solid pelvic viscera are grossly unremarkable. There is no free fluid or free air. There is a small fat containing umbilical hernia. The lumbar vertebral body heights are grossly maintained without acute osseous abnormality. Impression: Severe hepatomegaly and hepatic steatosis. Demonstration of marked thickening of the partially visualized midesophagus with associated adenopathy which could represent underlying esophagitis changes however an underlying malignancy is not excluded. Correlate with direct visualization. Small hiatal hernia with likely sequela of chronic gastritis. No other acute intra-abdominal abnormalities appreciated. Please note that all CT scans at this facility use dose modulation, iterative reconstruction, and/or weight-based dosing when appropriate to reduce radiation dose to as low as reasonably achievable. Dictated by Tony Marshall MD @ 05/12/2021 7:00:13 AM (Electronically Signed)
[2021-05-12] MEDS ORDERED: Alum Hydrox/Mag Hydrox/Simeth 15 ML, Lidocaine 2% 5 ML PO ONE ×4 (07:10→08:01)
[2021-05-12] MEDS ORDERED: Famotidine 20 MG Tab PO ONE (07:10)
[2021-05-12] MEDS ORDERED: Aluminum Hydroxide/Magnesium Hydroxide/Simethicone XS Susp 30 ML Cup ONE (08:04)
[2021-05-12] MEDS ORDERED: Lidocaine 2% Viscous Solution 15 ML Cup ONE (08:04)
[2021-05-12] MEDS ORDERED: Albuterol/Ipratropium 3.0-0.5 MG/3 ML Neb Soln NEB PRN (09:02)
[2021-05-12] MEDS ORDERED: Lactated Ringers 1,000 ML IV ONE (09:02)
[2021-05-12] MEDS ORDERED: Ondansetron 4 MG/2 ML SDV IVPUSH PRN (09:02)
--- NOTE | 2021-05-12 09:09 | PCM.HP.2 ---
H&P History of Present Illness - General Date of Service: 05/12/21 Admit Problem/Dx: Admission Diagnosis/Problem Admission Diagnosis/Problem Alcoholic hepatitis - History of Present Illness Initial Comments - Free Text/Narative: 55-year-old man with a past medical history of excessive alcohol use over the last 2 months since being unemployed , patient states that he tried to detox at home on his own for past 5 days but felt extremely tremulous and sick. He came to the ER and was found to be tachycardic and hypertensive with a CIWA score of 8. Patient received phenobarbital dosing at 260 mg each dose. Patient also received 1 L of D5 normal saline and provide the patient with 50 mg of IV thiamine. labs including CBC, CMP, ammonia, INR, urinalysis. Will obtain a CT abdomen pelvis with contrast for further evaluation. After 3 doses of phenobarbital the patient's symptoms did improve however his CI WA was still 7 therefore he received additional 2 mg of Ativan. Laboratory: CMP reveals hyponatremia 131, hypochloremia 89, metabolic acidosis with a bicarbonate of 19.5 likely secondary to ketoacidosis, elevated bilirubin at 4.4 with a transaminitis with an AST of 237, ALT of 220 and alkaline phos phatase of 153. This is likely secondary to alcoholic hepatitis. Lipase is normal at 134. Urinalysis reveals ketonuria. INR is 0.95. CBC reveals thrombocytopenia with a platelet count of 141. CT abdomen pelvis with contrast does not reveal any acute intra-abdominal process. There is severe hepatomegaly and hepatic steatosis. There is marked thickening of the visualized mid esophagus with associated adenopathy which could represent underlying esophagitis however underlying malignancy is not excluded. There is a small hiatal hernia with sequelae of chronic gastritis. Patient received GI cocktail and famotidine in the ER, was admitted to the hospital for further management of alcoholic hepatitis and alcohol withdrawal syndrome. - Related Data Allergies/Adverse Reactions: Allergies Allergy/AdvReac Type Severity Reaction Status Date / Time Anesthetics - Brenna Type- Allergy Chest Pain Verified 05/12/21 04:11 Parabens [Anesthetics - Brenna Type] morphine Allergy Other Verified 05/12/21 13:23 Home Medications: Home Meds lisinopriL [Lisinopril] 10 mg PO DAILY 08/03/20 [History] tadalafiL [Tadalafil] 2.5 mg PO DAILY 08/03/20 [History] Past Medical History HEENT History: Reports: Impaired Vision Cardiovascular History: Reports: Hypertension Other Gastrointestinal History: pyloric stenosis as a child Psychiatric History: Reports: Addiction - Infectious Disease History Infectious Disease History: Reports: Chicken Pox, Measles - Past Surgical History GI Surgical History: Reports: Other (See Below) Other GI Surgeries/Procedures: pyloric stenosis as a child Other Musculoskeletal Surgeries/Procedures:: right femer Social & Family History - Family History Family Medical History: No Pertinent Family History - Caffeine Use Caffeine Use: Reports: Coffee - Recreational Drug Use Recreational Drug Use: Yes Drug Use in Last 12 Months: No H&P Review of Systems - Review of Systems: Review Of Systems: See Below General: Reports: Malaise, Weakness, Fatigue, Night Sweats, Diaphoresis, D ecreased Appetite. Denies: Fever, Chills Pulmonary: Denies: Shortness of Breath, Wheezing, Pleuritic Chest Pain Cardiovascular: Reports: Palpitations. Denies: Chest Pain, Dyspnea on Exertion Gastrointestinal: Reports: Anorexia. Denies: Abdominal Pain, Black Stool, Bloody Stool, Constipation, Diarrhea Genitourinary: Denies: Frequency, Burning, Pain Musculoskeletal: Denies: Shoulder Pain, Arm Pain, Back Pain Skin: Denies: Cyanosis, Jaundice, Mottled Psychiatric: Reports: Anxiety, Cravings. Denies: Confusion, Depression, Mood Lability, Hallucinations, Suicidal Ideation, Hallucinations (Auditory), Hallucinations (Visual) Neurological: Reports: Headache. Denies: Confusion, Dizziness Hematologic/Lymphatic: Denies: Anemia, Easy Bleeding Exam - Exam Exam: See Below - Vital Signs Vital Signs: Last Vital Signs Temp 36.1 C 05/12/21 04:05 Pulse 106 H 05/12/21 09:03 Resp 17 05/12/21 09:03 BP 148/96 H 05/12/21 09:03 Pulse Ox 99 05/12/21 09:03 Weight: 72.575 kg - Exam General: Alert, Oriented, Cooperative, Mild Distress Lungs: Clear to Auscultation, Normal Respiratory Effort Cardiovascular: Regular Rate, Regular Rhythm, Normal S1, Normal S2 GI/Abdominal Exam: Normal Bowel Sounds, Soft, Non-Tender Back Exam: Normal Inspection, Full Range of Motion Extremities: Normal Inspection, Normal Range of Motion, Non-Tender - Patient Data Lab Results Last 24 hrs: Laboratory Results - last 24 hr 05/12/21 05/12/21 05/12/21 Range/Units 04:35 04:35 04:35 WBC 8.50 (4.0-11.0) K/uL RBC 4.87 (4.50-5.90) M/uL Hgb 16.0 (13.0-17.0) g/dL Hct 46.8 (38.0-50.0) % MCV 96.1 (80.0-98.0) fL MCH 32.9 H (27.0-32.0) pg MCHC 34.2 (31.0-37.0) g/dL RDW Std Deviation 47.8 (28.0-62.0) fl RDW Coeff of Leila 14 (11.0-15.0) % Plt Count 141 L (150-400) K/uL MPV 10.30 (7.40-12.00) fL Neut % (Auto) 75.6 (48.0-80.0) % Lymph % (Auto) 13.8 L (16.0-40.0) % [place] % (Auto) 10.1 (0.0-15.0) % Eos % (Auto) 0.0 (0.0-7.0) % Baso % (Auto) 0.5 (0.0-1.5) % Neut # (Auto) 6.4 H (1.4-5.7) K/uL Lymph # (Auto) 1.2 (0.6-2.4) K/uL [place] # (Auto) 0.9 H (0.0-0.8) K/uL Eos # (Auto) 0.0 (0.0-0.7) K/uL Baso # (Auto) 0.0 (0.0-0.1) K/uL Nucleated RBC % 0.0 /100WBC Nucleated RBCs # 0 K/uL INR 0.95 Sodium 131 L (136-148) mmol/L Potassium 4.2 (3.5-5.1) mmol/L Chloride 89 L (98-107) mmol/L Carbon Dioxide 19.5 L (21.0-32.0) mmol/L BUN 14 (7.0-18.0) mg/dL Creatinine 1.2 (0.8-1.3) mg/dL Est Cr Clr Drug Dosing 65.79 mL/min Estimated GFR (MDRD) > 60.0 ml/min Glucose 103 (74-106) mg/dL Calcium 9.5 (8.5-10.1) mg/dL Total Bilirubin 4.4 H (0.2-1.0) mg/dL AST 237 H (15-37) IU/L ALT 220 H (14-63) IU/L Alkaline Phosphatase 153 H (46-116) U/L Ammonia (19-54) ug/dL Total Protein 7.9 (6.4-8.2) g/dL Albumin 3.8 (3.4-5.0) g/dL Globulin 4.1 H (2.6-4.0) g/dL Albumin/Globulin Ratio 0.9 (0.9-1.6) Lipase 134 (73-393) U/L Urine Color Urine Appearance Urine pH (5.0-8.0) Ur Specific [place] (1.001-1.035) Urine Protein (NEGATIVE) mg/dL Urine Glucose (UA) (NEGATIVE) mg/dL Urine Ketones (NEGATIVE) mg/dL Urine Occult Blood (NEGATIVE) Urine Nitrite (NEGATIVE) Urine Bilirubin (NEGATIVE) Urine Ictotest Urine Urobilinogen (<2.0) EU/dL Ur Leukocyte Esterase (NEGATIVE) SARS-CoV-2 RNA (DAVE) (NEGATIVE) 05/12/21 05/12/21 05/12/21 Range/Units 05:05 05:38 06:30 WBC (4.0-11.0) K/uL RBC (4.50-5.90) M/uL Hgb (13.0-17.0) g/dL Hct (38.0-50.0) % MCV (80.0-98.0) fL MCH (27.0-32.0) pg MCHC (31.0-37.0) g/dL RDW Std Deviation (28.0-62.0) fl RDW Coeff of Leila (11.0-15.0) % Plt Count (150-400) K/uL MPV (7.40-12.00) fL Neut % (Auto) (48.0-80.0) % Lymph % (Auto) (16.0-40.0) % [place] % (Auto) (0.0-15.0) % Eos % (Auto) (0.0-7.0) % Baso % (Auto) (0.0-1.5) % Neut # (Auto) (1.4-5.7) K/uL Lymph # (Auto) (0.6-2.4) K/uL [place] # (Auto) (0.0-0.8) K/uL Eos # (Auto) (0.0-0.7) K/uL Baso # (Auto) (0.0-0.1) K/uL Nucleated RBC % /100WBC Nucleated RBCs # K/uL INR Sodium (136-148) mmol/L Potassium (3.5-5.1) mmol/L Chloride (98-107) mmol/L Carbon Dioxide (21.0-32.0) mmol/L BUN (7.0-18.0) mg/dL Creatinine (0.8-1.3) mg/dL Est Cr Clr Drug Dosing mL/min Estimated GFR (MDRD) ml/min Glucose (74-106) mg/dL Calcium (8.5-10.1) mg/dL Total Bilirubin (0.2-1.0) mg/dL AST (15-37) IU/L ALT (14-63) IU/L Alkaline Phosphatase (46-116) U/L Ammonia 37 (19-54) ug/dL Total Protein (6.4-8.2) g/dL Albumin (3.4-5.0) g/dL Globulin (2.6-4.0) g/dL Albumin/Globulin Ratio (0.9-1.6) Lipase (73-393) U/L Urine Color YELLOW Urine Appearance CLEAR Urine pH 5.5 (5.0-8.0) Ur Specific [place] >= 1.030 (1.001-1.035) Urine Protein NEGATIVE (NEGATIVE) mg/dL Urine Glucose (UA) 500 H (NEGATIVE) mg/dL Urine Ketones 40 H (NEGATIVE) mg/dL Urine Occult Blood NEGATIVE (NEGATIVE) Urine Nitrite NEGATIVE (NEGATIVE) Urine Bilirubin SMALL H (NEGATIVE) Urine Ictotest NEGATIVE Urine Urobilinogen 4.0 H (<2.0) EU/dL Ur Leukocyte Esterase NEGATIVE (NEGATIVE) SARS-CoV-2 RNA (DAVE) NEGATIVE (NEGATIVE) Result Diagrams: 05/12/21 04:35 05/12/21 04:35 Sepsis Event Note - Evaluation Sepsis Screening Result: No Definite Risk - Focused Exam Vital Signs: Vital Signs Temp Pulse Resp BP Pulse Ox 05/12/21 09:03 106 H 17 148/96 H 99 05/12/21 07:43 100 16 142/86 H 97 05/12/21 06:48 116 H 20 154/80 H 99 05/12/21 06:27 112 H 19 144/78 H 97 05/12/21 05:30 110 H 19 138/76 98 05/12/21 05:09 102 H 18 155/83 H 99 05/12/21 05:01 112 H 19 165/90 H 99 05/12/21 04:53 107 H 20 149/83 H 98 05/12/21 04:23 114 H 22 H 152/91 H 100 05/12/21 04:05 36.1 C 112 H 20 192/119 H 97 - Problem List (1) Alcohol withdrawal syndrome SNOMED Code(s): 044694425 ICD Code: F10.239 - ALCOHOL DEPENDENCE WITH WITHDRAWAL, UNSPECIFIED Status: Acute Current Visit: Yes (2) HTN (hypertension) SNOMED Code(s): 71530371 ICD Code: I10 - ESSENTIAL (PRIMARY) HYPERTENSION Status: Acute Current Visit: Yes (3) Alcoholic hepatitis SNOMED Code(s): 105599085 ICD Code: K70.10 - ALCOHOLIC HEPATITIS WITHOUT ASCITES Status: Acute Current Visit: Yes Problem List Initiated/Reviewed/Updated: Yes Orders Last 24hrs: Active Orders 24 hr Category Date Time Status Admission Status [Patient Status] [ADT] Stat ADT 05/12/21 07:16 Active Ambulate [RC] ASDIRECTED Care 05/12/21 09:02 Ordered Antiembolic Devices [RC] PER UNIT ROUTINE Care 05/12/21 09:03 Ordered Cardiac Monitoring [RC] . DIRECTED Care 05/12/21 04:32 Active Oxygen Therapy [RC] PRN Care 05/12/21 09:02 Ordered Pulse Oximetry [RC] ASDIRECTED Care 05/12/21 04:32 Active RT Aerosol Therapy [RC] ASDIRECTED Care 05/12/21 09:04 Ordered VTE/DVT Education [RC] PER UNIT ROUTINE Care 05/12/21 09:02 Ordered Vital Signs [RC] Q4H Care 05/12/21 09:02 Ordered Clear Liquid Diet [DIET] Diet 05/12/21 Breakfast Ordered CBC WITH AUTO DIFF [HEME] AM Lab 05/13/21 05:11 Ordered CMP [COMPREHENSIVE METABOLIC PN,CMP] [CHEM] AM Lab 05/13/21 05:11 Ordered INR,PT,PROTHROMBIN TIME [COAG] AM Lab 05/13/21 05:11 Ordered INR,PT,PROTHROMBIN TIME [COAG] AM Lab 05/14/21 05:11 Ordered MAGNESIUM [CHEM] AM Lab 05/13/21 05:11 Ordered PHOSPHORUS [CHEM] AM Lab 05/13/21 05:11 Ordered Albuterol/Ipratropium [DuoNeb 3.0-0.5 MG/3 ML] Med 05/12/21 09:02 Ordered 3 ml NEB Q4HRRT PRN Dextrose 5%-0.9% NaCl [Dextrose 5%-Normal Saline] 1,000 Med 05/12/21 04:45 Active ml IV ASDIRECTED Dextrose 5%-0.9% NaCl [Dextrose 5%-Normal Saline] 1,000 Med 05/12/21 07:00 Active ml IV ASDIRECTED Folic Acid Med 05/12/21 09:15 Ordered 1 mg IV DAILY Lactated Ringers [Ringers, Lactated] 1,000 ml Med 05/12/21 09:02 Ordered IV ONETIME Lactulose [Chronulac] Med 05/12/21 09:15 Ordered 10 gm PO BID Ondansetron [Zofran] Med 05/12/21 09:02 Ordered 4 mg IVPUSH Q4H PRN Pantoprazole [ProTONIX IV] Med 05/12/21 21:00 Ordered 40 mg IV Q12HR Sodium Chloride 0.9% [Normal Saline] 1,000 ml Med 05/12/21 05:45 Active IV ASDIRECTED Thiamine [Vitamin B-1] 100 mg Med 05/13/21 09:00 Ordered Sodium Chloride 0.9% [Normal Saline] 100 ml IV DAILY Sequential Compression Device [OM.PC] Per Unit Routine Oth 05/12/21 09:03 Ordered Resuscitation Status Routine Resus Stat 05/12/21 09:02 Ordered Medication Orders Albuterol/Ipratropium (Albuterol/Ipratropium 3.0-0.5 Mg/3 Ml Neb Soln) 3 ml NEB Q4HRRT PRN PRN Reason: Shortness Of Breath/wheezing Folic Acid (Folic Acid 50 Mg/10 Ml Mdv) 1 mg IV DAILY JANE Dextrose/Sodium Chloride (Dextrose 5%-Normal Saline) 1,000 mls @ 999 mls/hr IV ASDIRECTED COUNTS INCLUDE 234 BEDS AT THE [facility] Last Admin: 05/12/21 04:47 Dose: 999 mls/hr Documented by: SEAGMIC Sodium Chloride (Normal Saline) 1,000 mls @ 150 mls/hr IV ASDIRECTED COUNTS INCLUDE 234 BEDS AT THE [facility] Last Admin: 05/12/21 06:18 Dose: 150 mls/hr Documented by: SEAGMIC Dextrose/Sodium Chloride (Dextrose 5%-Normal Saline) 1,000 mls @ 999 mls/hr IV ASDIRECTED COUNTS INCLUDE 234 BEDS AT THE [facility] Last Admin: 05/12/21 06:51 Dose: 999 mls/hr Documented by: SEAGMIC Lactated Ringer's (Ringers, Lactated) 1,000 mls @ 125 mls/hr IV ONETIME ONE Stop: 05/12/21 17:01 Thiamine HCl 100 mg/ Sodium (Chloride) 101 mls @ 202 mls/hr IV DAILY COUNTS INCLUDE 234 BEDS AT THE [facility] Lactulose (Lactulose Soln 10 Gm/15 Ml 15 Ml Ud Cup) 10 gm PO BID JANE Ondansetron HCl (Ondansetron 4 Mg/2 Ml Sdv) 4 mg IVPUSH Q4H PRN PRN Reason: Nausea/Vomiting Pantoprazole Sodium (Pantoprazole 40 Mg Vial) 40 mg IV Q12HR COUNTS INCLUDE 234 BEDS AT THE [facility] Assessment/Plan Comment:: Patient is a 55-year-old male admitted for alcoholic hepatitis Patient started on [facility] protocol for alcohol withdrawal Continue IV Ativan per [facility] protocol Right hepatotoxic agents Patient received some IV hydration, once patient is eating and drinking well stop IV fluids to prevent volume overload Continue to monitor CMP daily Patient was counseled about alcohol abstinence in great detail, patient states that after this detox he is not going to drink alcohol again IV PPI daily IV Zofran for nausea vomiting
[2021-05-12] MEDS: Folic Acid 50 MG/10 ML MDV IV SCH (10:49)
[2021-05-12] MEDS: Lactulose Soln 10 GM/15 ML 15 ML UD Cup PO SCH ×2 (10:49→22:21)
[2021-05-12] MEDS ORDERED: LORazepam 2 MG/ML SDV IVPUSH PRN (11:00)
[2021-05-12] MEDS: Pantoprazole 40 MG Vial IV SCH (22:21)
[2021-05-13 08:11] LABS: BLOOD UREA NITROGEN,BUN 5 mg/dL (7.0-18.0); CARBON DIOXIDE,CO2 25.8 mmol/L (21.0-32.0); CHLORIDE,CL 100 mmol/L (98-107); GLUCOSE RANDOM 98 mg/dL (74-106); POTASSIUM,K 3.3 mmol/L (3.5-5.1); SODIUM,NA 137 mmol/L (136-148)
[2021-05-13] MEDS: Sodium Chloride 0.9% 1,000 ML IV SCH (08:50)
[2021-05-13] MEDS: Lactulose Soln 10 GM/15 ML 15 ML UD Cup PO SCH (08:53)
[2021-05-13] MEDS: Folic Acid 50 MG/10 ML MDV IV SCH (08:59)
[2021-05-13] MEDS: Pantoprazole 40 MG Vial IV SCH (08:59)
[2021-05-13] MEDS ORDERED: Thiamine 200 MG/2 ML MDV IVPUSH SCH (09:00)
[2021-05-13] MEDS ORDERED: Thiamine 100 MG in Sodium Chloride 0.9% 100 ML IV SCH (09:00)
[2021-05-13] MEDS ORDERED: Potassium Chloride 20 MEQ Tab.ER PO ONE (12:29)
[2021-05-13] MEDS ORDERED: Phosphorus #1 250 MG Tab PO SCH ×2 (13:30→18:00)
--- NOTE | 2021-05-13 14:14 | PCM.DCSUM1 ---
Discharge Summary - Discharge Data Discharge Date: 05/13/21 Discharge Disposition: Home, Self-Care 01 Condition: Stable - Referral to Home Health Primary Care Physician: PCP None - Patient Summary/Data Hospital Course: 55-year-old man with a past medical history ETOH abuse who presented was admitted for acute alcoholic hepatitis and dehydration. He presented with nausea and vomiting. He quit cold turkey five days ago had been extremly tremulous and sick.patient states that he tried to detox at home on his own for past 5 days but felt extremely tremulous and sick. Laboratory: CMP reveals hyponatremia 131, hypochloremia 89, metabolic acidosis with a bicarbonate of 19.5 likely secondary to ketoacidosis, elevated bilirubin at 4.4 with a transaminitis with an AST of 237, ALT of 220 and alkaline phosphatase of 153. Lipase is normal at 134. Urinalysis reveals ketonuria. INR is 0.95. CBC reveals thrombocytopenia with a platelet count of 141. CT abdomen pelvis with contrast does not reveal any acute intra-abdominal process. There is severe hepatomegaly and hepatic steatosis. There is marked thickening of the visualized mid esophagus with associated adenopathy which could represent underlying esophagitis however underlying malignancy is not excluded. There is a small hiatal hernia with sequelae of chronic gastritis. He was given phenobarbital and ativan as needed in the ED for withdrawal symptoms. He was hydrated with IV fluids and most of his symptoms did resolve. He was monitored two nights on the medical floor and today he is requesting discharge. I offered further observation to ensure resolution of ETOH withdrawal and replacement electrolytes of potassium and phosphate but patient refused. He was discharged home on protonix and informed of the need to follow up regarding EGD for his CT scan findings. HE was instructed on the importance to abstain from ETOH and will seek out outpatient treatment. - Patient Instructions Diet: Usual Diet as Tolerated Activity: As Tolerated - Discharge Plan Prescriptions/Med Rec: Phosphorus #1 [Neutra-Phos] 250 mg PO DAILY #4 tablet Pantoprazole Sodium [Protonix] 40 mg PO DAILY #14 tablet. Home Medications: Home Meds lisinopriL [Lisinopril] 10 mg PO DAILY 08/03/20 [History] tadalafiL [Tadalafil] 2.5 mg PO DAILY 08/03/20 [History] Pantoprazole Sodium [Protonix] 40 mg PO DAILY #14 tablet. 05/13/21 [Rx] Phosphorus #1 [Neutra-Phos] 250 mg PO DAILY #4 tablet 05/13/21 [Rx] Patient Handouts: Alcoholic Liver Disease, [id number], How to Take Your Blood Pressure, [id number], Alcoholic Hepatitis, Hypertension, Adult, Cnim-[id number], Preventing Hypertension, Pantoprazole tablets, Managing Your Hypertension, Alcohol Withdrawal Syndrome, [id number] Referrals: Jethro Odell MD [Physician] - 05/19/21 1:45 pm PCP,None [Primary Care Provider] - Odell Tirado MD [Ordering Only Provider] - 05/20/21 1:00 pm - Discharge Summary/Plan Comment DC Time >30 min.: No Total # of Minutes for Discharge Time: 20 - Patient Data Vitals - Most Recent: Last Vital Signs Temp 36.8 C 05/13/21 08:00 Pulse 106 H 05/13/21 08:00 Resp 16 05/13/21 08:00 BP 134/80 05/13/21 08:00 Pulse Ox 95 05/13/21 08:00 Weight - Most Recent: 71.985 kg I&O - Last 24 hours: Intake & Output 05/12/21 05/13/21 05/13/21 22:59 06:59 14:59 Intake Total 1300 Output Total 2650 Balance -1350 Lab Results - Last 24 hrs: Laboratory Results - last 24 hr 05/13/21 05/13/21 05/13/21 Range/Units 05:30 05:30 05:30 WBC 6.14 (4.0-11.0) K/uL RBC 4.11 L (4.50-5.90) M/uL Hgb 13.3 (13.0-17.0) g/dL Hct 40.2 (38.0-50.0) % MCV 97.8 (80.0-98.0) fL MCH 32.4 H (27.0-32.0) pg MCHC 33.1 (31.0-37.0) g/dL RDW Std Deviation 48.8 (28.0-62.0) fl RDW Coeff of Leila 14 (11.0-15.0) % Plt Count 105 L (150-400) K/uL MPV 10.60 (7.40-12.00) fL Neut % (Auto) 69.4 (48.0-80.0) % Lymph % (Auto) 18.6 (16.0-40.0) % [place] % (Auto) 11.2 (0.0-15.0) % Eos % (Auto) 0.5 (0.0-7.0) % Baso % (Auto) 0.3 (0.0-1.5) % Neut # (Auto) 4.3 (1.4-5.7) K/uL Lymph # (Auto) 1.1 (0.6-2.4) K/uL [place] # (Auto) 0.7 (0.0-0.8) K/uL Eos # (Auto) 0.0 (0.0-0.7) K/uL Baso # (Auto) 0.0 (0.0-0.1) K/uL Nucleated RBC % 0.0 /100WBC Nucleated RBCs # 0 K/uL INR 1.00 Sodium 137 (136-148) mmol/L Potassium 3.3 L (3.5-5.1) mmol/L Chloride 100 (98-107) mmol/L Carbon Dioxide 25.8 (21.0-32.0) mmol/L BUN 5 L (7.0-18.0) mg/dL Creatinine 0.8 (0.8-1.3) mg/dL Est Cr Clr Drug Dosing 98.69 mL/min Estimated GFR (MDRD) > 60.0 ml/min Glucose 98 (74-106) mg/dL Calcium 8.2 L (8.5-10.1) mg/dL Phosphorus 1.8 L (2.6-4.7) mg/dL Magnesium 2.2 (1.8-2.4) mg/dL Total Bilirubin 2.9 H (0.2-1.0) mg/dL AST 173 H (15-37) IU/L ALT 149 H (14-63) IU/L Alkaline Phosphatase 111 (46-116) U/L Total Protein 5.6 L (6.4-8.2) g/dL Albumin 2.8 L (3.4-5.0) g/dL Globulin 2.8 (2.6-4.0) g/dL Albumin/Globulin Ratio 1.0 (0.9-1.6) Med Orders - Current: Current Medications Albuterol/Ipratropium (Albuterol/Ipratropium 3.0-0.5 Mg/3 Ml Neb Soln) 3 ml NEB Q4HRRT PRN PRN Reason: Shortness Of Breath/wheezing Folic Acid (Folic Acid 50 Mg/10 Ml Mdv) 1 mg IV DAILY [facility] Last Admin: 05/13/21 08:59 Dose: 1 mg Documented by: Sodium Chloride (Normal Saline) 1,000 mls @ 150 mls/hr IV ASDIRECTED [facility] Last Admin: 05/13/21 08:50 Dose: 150 mls/hr Documented by: Lactulose (Lactulose Soln 10 Gm/15 Ml 15 Ml Ud Cup) 10 gm PO BID [facility] Last Admin: 05/13/21 08:53 Dose: Not Given Documented by: Lorazepam (Lorazepam 2 Mg/Ml Sdv) 0 mg IVPUSH Q2H PRN; Protocol PRN Reason: Withdrawal Symptoms Ondansetron HCl (Ondansetron 4 Mg/2 Ml Sdv) 4 mg IVPUSH Q4H PRN PRN Reason: Nausea/Vomiting Pantoprazole Sodium (Pantoprazole 40 Mg Vial) 40 mg IV Q12HR [facility] Last Admin: 05/13/21 08:59 Dose: 40 mg Documented by: Sodium Phosphate (Phosphorus #1 250 Mg Tab) 250 mg PO QID [facility] Stop: 05/14/21 06:01 Last Admin: 05/13/21 13:34 Dose: 250 mg Documented by: Thiamine HCl (Thiamine 200 Mg/2 Ml Mdv) 100 mg IVPUSH DAILY [facility] Last Admin: 05/13/21 08:54 Dose: 100 mg Documented by: Discontinued Medications Al Hydroxide/Mg Hydroxide 15 (ml/ Lidocaine HCl 5 ml) 0 ml PO ONETIME ONE Stop: 05/12/21 07:11 Last Admin: 05/12/21 08:08 Dose: 20 each Documented by: Al Hydroxide/Mg Hydroxide 15 (ml/ Lidocaine HCl 5 ml) 0 ml PO ONETIME ONE Stop: 05/12/21 08:02 Last Admin: 05/12/21 08:09 Dose: Not Given Documented by: Famotidine (Famotidine 20 Mg Tab) 20 mg PO ONETIME ONE Stop: 05/12/21 07:11 Last Admin: 05/12/21 08:08 Dose: 20 mg Documented by: Phenobarbital 260 mg/ Sodium (Chloride) 102 mls @ 200 mls/hr IV ONETIME ONE Stop: 05/12/21 04:58 Last Admin: 05/12/21 04:45 Dose: 200 mls/hr Documented by: Dextrose/Sodium Chloride (Dextrose 5%-Normal Saline) 1,000 mls @ 999 mls/hr IV ASDIRECTED [facility] Last Admin: 05/12/21 04:47 Dose: 999 mls/hr Documented by: Phenobarbital 260 mg/ Sodium (Chloride) 102 mls @ 200 mls/hr IV ONETIME ONE Stop: 05/12/21 05:20 Last Admin: 05/12/21 04:57 Dose: 200 mls/hr Documented by: Sodium Chloride (Normal Saline Advbag) Confirm Administered Dose 100 mls @ as directed .ROUTE .STK-MED ONE Stop: 05/12/21 05:01 Last Admin: 05/12/21 05:31 Dose: Not Given Documented by: Phenobarbital 260 mg/ Sodium (Chloride) 102 mls @ 200 mls/hr IV ONETIME ONE Stop: 05/12/21 05:57 Last Admin: 05/12/21 05:32 Dose: 200 mls/hr Documented by: Dextrose/Sodium Chloride (Dextrose 5%-Normal Saline) 1,000 mls @ 999 mls/hr IV ASDIRECTED [facility] Last Admin: 05/12/21 06:51 Dose: 999 mls/hr Documented by: Lactated Ringer's (Ringers, Lactated) 1,000 mls @ 125 mls/hr IV ONETIME ONE Stop: 05/12/21 17:01 Last Admin: 05/12/21 12:45 Dose: 125 mls/hr Documented by: Iopamidol (Iopamidol 755 Mg/Ml 500 Ml Multipack Bottle) 100 ml IVPUSH ONETIME STA Stop: 05/12/21 06:22 Last Admin: 05/12/21 06:22 Dose: 100 ml Documented by: Lidocaine HCl (Lidocaine 2% Viscous Solution 15 Ml Cup) Confirm Administered Dose 15 ml .ROUTE .STK-MED ONE Stop: 05/12/21 08:05 Last Admin: 05/12/21 08:08 Dose: Not Given Documented by: Lorazepam (Lorazepam 2 Mg/Ml Sdv) 2 mg IVPUSH ONETIME ONE Stop: 05/12/21 05:45 Last Admin: 05/12/21 05:52 Dose: 2 mg Documented by: Lorazepam (Lorazepam 2 Mg/Ml Sdv) 1 mg IVPUSH ONETIME ONE Stop: 05/12/21 08:15 Last Admin: 05/12/21 08:23 Dose: 1 mg Documented by: Ondansetron HCl (Ondansetron 4 Mg/2 Ml Sdv) 4 mg IVPUSH ONETIME ONE Stop: 05/12/21 04:33 Last Admin: 05/12/21 04:44 Dose: 4 mg Documented by: Ondansetron HCl (Ondansetron 4 Mg/2 Ml Sdv) 4 mg IVPUSH ONETIME ONE Stop: 05/12/21 05:45 Last Admin: 05/12/21 05:52 Dose: 4 mg Documented by: Phenobarbital (Phenobarbital Sodium 130 Mg/Ml Sdv) Confirm Administered Dose 260 mg .ROUTE .STK-MED ONE Stop: 05/12/21 04:41 Last Admin: 05/12/21 04:45 Dose: Not Given Documented by: Phenobarbital (Phenobarbital Sodium 130 Mg/Ml Sdv) Confirm Administered Dose 260 mg .ROUTE .STK-MED ONE Stop: 05/12/21 04:54 Last Admin: 05/12/21 04:56 Dose: Not Given Documented by: Phenobarbital (Phenobarbital Sodium 130 Mg/Ml Sdv) Confirm Administered Dose 260 mg .ROUTE .STK-MED ONE Stop: 05/12/21 04:58 Last Admin: 05/12/21 05:31 Dose: Not Given Documented by: Potassium Chloride (Potassium Chloride 20 Meq Tab.Er) 40 meq PO ONETIME ONE Stop: 05/13/21 12:30 Last Admin: 05/13/21 13:00 Dose: 40 meq Documented by: Sodium Phosphate (Phosphorus #1 250 Mg Tab) 250 mg PO QID JANE Stop: 05/14/21 12:01 Thiamine HCl (Thiamine 200 Mg/2 Ml Mdv) 50 mg IVPUSH ONETIME ONE Stop: 05/12/21 04:36 Last Admin: 05/12/21 04:49 Dose: 50 mg Documented by:
[2021-05-13 19:46] VITALS: BP 139/78; PULSE 85
== END 2021-05-13 16:00 | disposition home or self-care (01) | DRG 433 ==
LOC: MW.ED 03:52 → MW.MS 07:16
PROVIDERS: ADMIT Student in an Organized Health Care Education/Training Program; ATTEND Student in an Organized Health Care Education/Training Program
DX: K70.10 Alcoholic hepatitis without ascites (principal); E87.1 Hypo-osmolality and hyponatremia; E87.2 Acidosis; F10.239 Alcohol dependence with withdrawal, unspecified; E86.0 Dehydration; E87.8 Other disorders of electrolyte and fluid balance, not elsewhere classified; R74.01 Elevation of levels of liver transaminase levels; D69.6 Thrombocytopenia, unspecified; K76.0 Fatty (change of) liver, not elsewhere classified; K44.9 Diaphragmatic hernia without obstruction or gangrene; Z79.899 Other long term (current) drug therapy; Z88.5 Allergy status to narcotic agent; Z88.4 Allergy status to anesthetic agent; H54.7 Unspecified visual loss; I10 Essential (primary) hypertension; Z86.19 Personal history of other infectious and parasitic diseases; K29.50 Unspecified chronic gastritis without bleeding; Z20.822 Contact with and (suspected) exposure to COVID-19
CPT/HCPCS: 36415; 74177; 74177-26; 80053; 81003; 82140; 83690; 83735; 84100; 85025; 85610; 96374; 96375; 96376; 99285-25; A9270-GY; C9113; J2060; J2405; J2560; J3411; J7030; J7042; J7120; Q9967; U0002

== ENCOUNTER 2021-06-06 20:18 | Inpatient (IN) | payer SELFPAY ==
[2021-06-06] MEDS ORDERED: Sodium Chloride 0.9% 2.5 ML Syringe FLUSH PRN (20:37)
[2021-06-06] MEDS ORDERED: Sodium Chloride 0.9% 1,000 ML IV ONE (20:37)
[2021-06-06] MEDS ORDERED: Sodium Chloride 0.9% 10 ML Syringe FLUSH PRN (20:37)
[2021-06-06] MEDS ORDERED: Thiamine 200 MG/2 ML MDV IVPUSH ONE (20:56)
[2021-06-06] MEDS ORDERED: LORazepam 2 MG/ML SDV IVPUSH ONE ×2 (20:57→22:25)
[2021-06-06 21:32] LABS: BLOOD UREA NITROGEN,BUN 12 mg/dL (7.0-18.0); CARBON DIOXIDE,CO2 21.7 mmol/L (21.0-32.0); CHLORIDE,CL 99 mmol/L (98-107); GLUCOSE RANDOM 195 mg/dL (74-106); POTASSIUM,K 3.5 mmol/L (3.5-5.1); SODIUM,NA 136 mmol/L (136-148)
--- NOTE | 2021-06-06 23:12 | EDM.PDOC ---
ED HPI GENERAL MEDICAL PROBLEM - General Chief Complaint: General Stated Complaint: MENTAL HEALTH Time Seen by Provider: 06/06/21 20:38 - History of Present Illness INITIAL COMMENTS - FREE TEXT/NARRATIVE: HISTORY AND PHYSICAL: History of present illness: This is a 55-year-old gentleman who was brought into the ER today by EMS secondary to having visual hallucinations and detoxing from alcohol. Upon initial evaluation, the patient reports that he is here secondary to alcohol detox although he reports that he has had several drinks today. Patient reports he has had history of hallucinations with detox in the past along with nausea vomiting and abdominal pain. Patient reports that earlier today he was seeing snakes crawling out of his floorboards. He reports that he called his landlord to assist him however his landlord did not see him. Patient keeps insisting that he has snakes that were having babies crawling out of the floor board that he killed and that there are several on the floor in his apartment and does not understand why no one is not believing him. Patient reports that he had multiple snakes crawling throughout his car. Patient denies any other symptomatology at this time. Patient has any recent fevers, shakes, chills, nausea, vomiting and diarrhea, dysuria, frequency, urgency, chest pain, shortness of breath, abdominal pain, head injury, head trauma. Patient denies any headaches. Review of systems: As per history of present illness and below otherwise all systems reviewed and negative. Past medical history: As per history of present illness and as reviewed below otherwise noncont ributory. Surgical history: As per history of present illness and as reviewed below otherwise noncontributory. Social history: No reported history of drug abuse. Family history: As per history of present illness and as reviewed below otherwise noncontributory. Physical exam: This patient was seen and evaluated during the 2019 SARS-CoV-2 novel coronavirus pandemic period. Community viral transmission is ongoing at time of this encounter and the emergency department is operating under pandemic response procedures. Constitutional: Patient is oriented to person, place, and time. Appears well- developed and well-nourished. No distress. HEENT: Moist mucous membranes Head: Normocephalic and atraumatic Eyes: Right eye exhibits no discharge. Left eye exhibits no discharge. No scleral icterus Neck: Normal range of motion. No tracheal deviation present. Cardiovascular: Normal rate and regular rhythm. Pulmonary: Effort normal, no respiratory distress. Abdominal: No distention Musculoskeletal: Normal range of motion Neurologic: Alert and oriented to person, place and time. Skin: [place], warm and dry. Psychiatric: Normal mood and affect. Behavior is normal. Judgment and thought content normal. Nursing note and vital signs have been reviewed Patient's ER physical exam is significant for patient being extremely tremulous and somewhat agitated in the ED. Patient has pulled out his IV x1. Upon reevaluation of the patient after receiving 4 mg of IV Ativan the patient was in his room after taking off his boots and throwing them in the garbage can as well as his coat and threw them in the garbage can. Patient reports that there were cats jumping out of the garbage can. Patient has somewhat tremulous gait. Patient's hand is tremulous. Patient has tremulous tongue. Patient is not diaphoretic. Heart with regular rate and rhythm except tachycardic. Lungs are clear without any wheezing rales or rhonchi. Neck supple, no nuchal rigidity, no photophobia, no Kernig's sign or Brudzinski sign, patient does not present with signs or symptoms of be consistent with meningitis. Diagnostics: CBC, CMP within normal limits. Patient's alcohol level is 0 despite him reporting that he did have multiple drinks prior to arrival. CT head did not reveal any acute pathology. Therapeutics: NSS x1 L Thiamine 100 mg IV Ativan 2 mg IV x2 Ativan 4 mg IV Assessment and plan: This is a 55-year-old gentleman who appears to be in early alcohol withdrawal with delirium and confusion. Patient will be admitted to the ICU for aggressive benzodiazepine treatment. In the ED the patient has been given a total of 8 mg of IV Ativan we will continue to monitor his heart rate, blood pressure, mentation and respiratory status. Case has been discussed with Dr. Green who ag astrid with plan to admit patient to the ICU. Critical Care: The high probability of sudden, clinically significant deterioration in the patient's condition required the highest level of my preparedness to intervene urgently. The services I provided to this patient were to treat and/or prevent clinically significant deterioration. Services included the following: chart data review, reviewing nursing notes and/or old charts, documentation time, financial planning consultant collaboration regarding findings and treatment options, medication orders and management, direct patient care, vital sign assessments and ordering, interpreting and reviewing diagnostic studies/lab tests. Aggregate critical care time includes only time during which I was engaged inwork directly related to the patient's care, as described above, whether at the bedside or elsewhere in the Emergency Department. It did not include time spent performing other reported procedures or the services of residents, students, nurses or physician assistants. Critical Care Time: 35 minutes Definitive disposition and diagnosis as appropriate pending reevaluation and review of above. - Related Data Allergies Allergy/AdvReac Type Severity Reaction Status Date / Time Anesthetics - Brenna Type- Allergy Chest Pain Verified 06/06/21 20:33 Parabens [Anesthetics - Brenna Type] morphine Allergy Other Verified 06/06/21 20:33 Home Meds: Home Meds lisinopriL [Lisinopril] 10 mg PO DAILY 08/03/20 [History] tadalafiL [Tadalafil] 06/06/21 [History] Past Medical History HEENT History: Reports: Impaired Vision Cardiovascular History: Reports: Hypertension Other Gastrointestinal History: pyloric stenosis as a child Psychiatric History: Reports: Addiction - Infectious Disease History Infectious Disease History: Reports: Chicken Pox, Measles - Past Surgical History GI Surgical History: Reports: Other (See Below) Other GI Surgeries/Procedures: pyloric stenosis as a child Other Musculoskeletal Surgeries/Procedures:: right femur broken Social & Family History - Family History Family Medical History: No Pertinent Family History - Tobacco Use Second Hand Smoke Exposure: No - Caffeine Use Caffeine Use: Reports: None - Recreational Drug Use Recreational Drug Use: No ED ROS GENERAL - Review of Systems Review Of Systems: See Below ED EXAM, GENERAL - Physical Exam Exam: See Below #1 Interpretation EKG Date: 06/07/21 Time: 00:53 EKG Interpretation Comments: EKG: As interpreted by ER physician: Micki: Nonspecific ST-T wave abnormalities Normal axis No evidence of ST elevation PR Sinus tachycardia heart rate of 100 Course - Vital Signs Last Recorded V/S: Last Vital Signs Temp 97.7 F 06/06/21 20:30 Pulse 106 H 06/07/21 00:30 Resp 18 06/07/21 00:30 BP 141/88 H 06/07/21 00:30 Pulse Ox 97 06/07/21 00:30 - Orders/Labs/Meds Orders: Active Orders 24 hr Category Date Time Status Patient Status [ADT] Routine ADT 06/07/21 00:20 Active DRUG SCREEN, URINE [URCHEM] Stat Lab 06/06/21 20:37 Ordered UA W/LIONEL RFLX IF INDICATED [URIN] Stat Lab 06/06/21 20:37 Ordered Sodium Chloride 0.9% [Saline Flush] Med 06/06/21 20:37 Active 10 ml FLUSH ASDIRECTED PRN Sodium Chloride 0.9% [Saline Flush] Med 06/06/21 20:37 Active 2.5 ml FLUSH ASDIRECTED PRN Saline Lock Insert [OM.PC] Stat Oth 06/06/21 20:37 Ordered Medication Orders Sodium Chloride (Sodium Chloride 0.9% 10 Ml Syringe) 10 ml FLUSH ASDIRECTED PRN PRN Reason: Keep Vein Open Sodium Chloride (Sodium Chloride 0.9% 2.5 Ml Syringe) 2.5 ml FLUSH ASDIRECTED PRN PRN Reason: Keep Vein Open Labs: Laboratory Tests 06/06/21 06/06/21 06/06/21 Range/Units 20:45 20:45 21:05 WBC 13.99 H (4.0-11.0) K/uL RBC 4.42 L (4.50-5.90) M/uL Hgb 14.3 (13.0-17.0) g/dL Hct 43.0 (38.0-50.0) % MCV 97.3 (80.0-98.0) fL MCH 32.4 H (27.0-32.0) pg MCHC 33.3 (31.0-37.0) g/dL RDW Std Deviation 47.0 (28.0-62.0) fl RDW Coeff of Leila 13 (11.0-15.0) % Plt Count 196 (150-400) K/uL MPV 10.20 (7.40-12.00) fL Neut % (Auto) 88.3 H (48.0-80.0) % Lymph % (Auto) 2.9 L (16.0-40.0) % [place] % (Auto) 8.6 (0.0-15.0) % Eos % (Auto) 0.0 (0.0-7.0) % Baso % (Auto) 0.2 (0.0-1.5) % Neut # (Auto) 12.4 H (1.4-5.7) K/uL Lymph # (Auto) 0.4 L (0.6-2.4) K/uL [place] # (Auto) 1.2 H (0.0-0.8) K/uL Eos # (Auto) 0.0 (0.0-0.7) K/uL Baso # (Auto) 0.0 (0.0-0.1) K/uL Nucleated RBC % 0.0 /100WBC Nucleated RBCs # 0 K/uL Sodium 136 (136-148) mmol/L Potassium 3.5 (3.5-5.1) mmol/L Chloride 99 (98-107) mmol/L Carbon Dioxide 21.7 (21.0-32.0) mmol/L BUN 12 (7.0-18.0) mg/dL Creatinine 1.3 (0.8-1.3) mg/dL Est Cr Clr Drug Dosing 60.73 mL/min Estimated GFR (MDRD) 57.5 ml/min Glucose 195 H (74-106) mg/dL Calcium 9.2 (8.5-10.1) mg/dL Magnesium 2.3 (1.8-2.4) mg/dL Total Bilirubin 1.8 H (0.2-1.0) mg/dL AST 31 (15-37) IU/L ALT 29 (14-63) IU/L Alkaline Phosphatase 107 (46-116) U/L Total Protein 7.8 (6.4-8.2) g/dL Albumin 3.7 (3.4-5.0) g/dL Globulin 4.1 H (2.6-4.0) g/dL Albumin/Globulin Ratio 0.9 (0.9-1.6) Ethyl Alcohol <3 mg/dL SARS-CoV-2 RNA (DAVE) NEGATIVE (NEGATIVE) Meds: Medications Generic Name Dose Route Start Last Admin Trade Name Freq PRN Reason Stop Dose Admin Sodium Chloride 10 ml 06/06/21 20:37 Sodium Chloride 0.9% 10 Ml Syringe FLUSH ASDIRECTED PRN Keep Vein Open Sodium Chloride 2.5 ml 06/06/21 20:37 Sodium Chloride 0.9% 2.5 Ml Syringe FLUSH ASDIRECTED PRN Keep Vein Open Discontinued Medications Generic Name Dose Route Start Last Admin Trade Name Freq PRN Reason Stop Dose Admin Sodium Chloride 1,000 mls @ 999 mls/hr 06/06/21 20:37 06/06/21 20:48 Normal Saline IV 06/06/21 21:37 999 mls/hr .Bolus ONE Administration Levetiracetam 1,000 mg/ 110 mls @ 440 mls/hr 06/06/21 23:07 06/06/21 23:30 Dextrose/Water IV 06/06/21 23:21 Not Given Q12H STA Lorazepam 2 mg 06/06/21 20:57 06/06/21 21:03 Lorazepam 2 Mg/Ml Sdv IVPUSH 06/06/21 20:58 2 mg ONETIME ONE Administration Lorazepam 2 mg 06/06/21 22:25 06/06/21 23:33 Lorazepam 2 Mg/Ml Sdv IVPUSH 06/06/21 22:26 2 mg ONETIME ONE Administration Lorazepam 4 mg 06/07/21 00:19 06/07/21 00:35 Lorazepam 2 Mg/Ml Sdv IVPUSH 06/07/21 00:20 4 mg ONETIME ONE Administration Thiamine HCl 100 mg 06/06/21 20:56 06/06/21 21:03 Thiamine 200 Mg/2 Ml Mdv IVPUSH 06/06/21 20:57 100 mg ONETIME ONE Administration Departure - Departure Time of Disposition: 00:25 Disposition: Admitted As Inpatient 67 Condition: Fair Clinical Impression: Alcohol withdrawal delirium - Discharge Information Sepsis Event Note (ED) - Evaluation Sepsis Screening Result: No Definite Risk - Focused Exam Vital Signs: Vital Signs Temp Pulse Resp BP Pulse Ox 06/07/21 00:30 106 H 18 141/88 H 97 06/06/21 23:00 102 H 18 160/100 H 97 06/06/21 20:30 97.7 F 115 H 20 177/106 H 98 - My Orders Last 24 Hours: My Active Orders 06/06/21 20:37 DRUG SCREEN, URINE [URCHEM] Stat UA W/LIONEL RFLX IF INDICATED [URIN] Stat Sodium Chloride 0.9% [Saline Flush] 10 ml FLUSH ASDIRECTED PRN Sodium Chloride 0.9% [Saline Flush] 2.5 ml FLUSH ASDIRECTED PRN Saline Lock Insert [OM.PC] Stat 06/07/21 00:20 Patient Status [ADT] Routine - Assessment/Plan Last 24 Hours: My Active Orders 06/06/21 20:37 DRUG SCREEN, URINE [URCHEM] Stat UA W/LIONEL RFLX IF INDICATED [URIN] Stat Sodium Chloride 0.9% [Saline Flush] 10 ml FLUSH ASDIRECTED PRN Sodium Chloride 0.9% [Saline Flush] 2.5 ml FLUSH ASDIRECTED PRN Saline Lock Insert [OM.PC] Stat 06/07/21 00:20 Patient Status [ADT] Routine
--- NOTE | 2021-06-06 23:25 | CT ---
INDICATION: Headache, injury TECHNIQUE: CT Head without i.v. contrast. Coronal and sagittal reformats were obtained. COMPARISON: None FINDINGS: CSF space: The ventricles are normal for age. Brain: No evidence of mass, acute infarction or hemorrhage is seen. No mass-effect or midline shift is seen. The brain parenchyma is otherwise normal in appearance with preservation of the frank-white matter junction. Calvarium: The visualized paranasal sinuses are well aerated. The mastoid air cells are clear. The visualized orbits are grossly unremarkable. The calvarium is unremarkable in appearance with no fractures identified. IMPRESSION: 1. No evidence of acute infarction, intracranial hemorrhage, or mass-effect seen. Please note that all CT scans at this facility use dose modulation, iterative reconstruction, and/or weight-based dosing when appropriate to reduce radiation dose to as low as reasonably achievable. Dictated by: Alfonso Munroe MD @ 06/06/2021 23:25:34 (Electronically Signed)
[2021-06-07] MEDS ORDERED: LORazepam 2 MG/ML SDV IVPUSH ONE (00:19)
[2021-06-07 00:41] VITALS: PULSE 106
[2021-06-07] MEDS: Sodium Chloride 0.9% 1,000 ML IV SCH ×3 (03:00→19:54)
[2021-06-07] MEDS: LORazepam 2 MG/ML SDV IVPUSH PRN ×5 (07:05→21:13)
[2021-06-07 07:23] LABS: BLOOD UREA NITROGEN,BUN 10 mg/dL (7.0-18.0); CARBON DIOXIDE,CO2 22.7 mmol/L (21.0-32.0); CHLORIDE,CL 102 mmol/L (98-107); GLUCOSE RANDOM 86 mg/dL (74-106); POTASSIUM,K 3.9 mmol/L (3.5-5.1); SODIUM,NA 136 mmol/L (136-148)
--- NOTE | 2021-06-07 07:41 | PCM.HP.2 ---
H&P History of Present Illness - General Date of Service: 06/07/21 Admit Problem/Dx: Admission Diagnosis/Problem Admission Diagnosis/Problem Alcohol withdrawal delirium - History of Present Illness Initial Comments - Free Text/Narative: 55 yo male who presents to the ED with ETOH withdrawal and hallucinations. Valeria bartlett has been snakes at home and in his care. He is also seeing them in his room. Patient reports he has cut back on his alcohol recently from 2 bottles of vodka a day. He denies any fevers, chills or chest pain. - Related Data Allergies/Adverse Reactions: Allergies Allergy/AdvReac Type Severity Reaction Status Date / Time Anesthetics - Brenna Type- Allergy Chest Pain Verified 06/06/21 20:33 Parabens [Anesthetics - Brenna Type] morphine Allergy Other Verified 06/06/21 20:33 Home Medications: Home Meds lisinopriL [Lisinopril] 10 mg PO DAILY 08/03/20 [History] tadalafiL [Tadalafil] 06/06/21 [History] Pantoprazole [ProTONIX] 40 mg PO DAILY 06/07/21 [History] Past Medical History HEENT History: Reports: Impaired Vision Cardiovascular History: Reports: Hypertension Other Gastrointestinal History: pyloric stenosis as a child Psychiatric History: Reports: Addiction - Infectious Disease History Infectious Disease History: Reports: Chicken Pox, Measles - Past Surgical History GI Surgical History: Reports: Other (See Below) Other GI Surgeries/Procedures: pyloric stenosis as a child Other Musculoskeletal Surgeries/Procedures:: right femur broken Social & Family History - Family History Family Medical History: No Pertinent Family History - Tobacco Use Second Hand Smoke Exposure: No - Caffeine Use Caffeine Use: Reports: None - Recreational Drug Use Recreational Drug Use: No H&P Review of Systems - Review of Systems: Review Of Systems: Comprehensive ROS is negative, except as noted in HPI. Exam - Exam Exam: See Below - Vital Signs Vital Signs: Last Vital Signs Temp 36.6 C 06/07/21 03:00 Pulse 106 H 06/07/21 00:30 Resp 17 06/07/21 06:00 BP 124/91 H 06/07/21 06:00 Pulse Ox 97 06/07/21 06:00 Weight: 74.843 kg - Exam General: Alert, Oriented HEENT: Mucosa Moist & [place] Neck: Supple Lungs: Clear to Auscultation, Normal Respiratory Effort Cardiovascular: Regular Rate, Regular Rhythm GI/Abdominal Exam: Normal Bowel Sounds, Soft, Non-Tender Extremities: Non-Tender, No Pedal Edema Skin: Warm, Dry, Intact Neurological: Cranial Nerves Intact. No: Focal Deficit - Patient Data Lab Results Last 24 hrs: Laboratory Results - last 24 hr 06/06/21 06/06/21 06/06/21 Range/Units 20:45 20:45 21:05 WBC 13.99 H (4.0-11.0) K/uL RBC 4.42 L (4.50-5.90) M/uL Hgb 14.3 (13.0-17.0) g/dL Hct 43.0 (38.0-50.0) % MCV 97.3 (80.0-98.0) fL MCH 32.4 H (27.0-32.0) pg MCHC 33.3 (31.0-37.0) g/dL RDW Std Deviation 47.0 (28.0-62.0) fl RDW Coeff of Leila 13 (11.0-15.0) % Plt Count 196 (150-400) K/uL MPV 10.20 (7.40-12.00) fL Neut % (Auto) 88.3 H (48.0-80.0) % Lymph % (Auto) 2.9 L (16.0-40.0) % [place] % (Auto) 8.6 (0.0-15.0) % Eos % (Auto) 0.0 (0.0-7.0) % Baso % (Auto) 0.2 (0.0-1.5) % Neut # (Auto) 12.4 H (1.4-5.7) K/uL Lymph # (Auto) 0.4 L (0.6-2.4) K/uL [place] # (Auto) 1.2 H (0.0-0.8) K/uL Eos # (Auto) 0.0 (0.0-0.7) K/uL Baso # (Auto) 0.0 (0.0-0.1) K/uL Nucleated RBC % 0.0 /100WBC Nucleated RBCs # 0 K/uL Sodium 136 (136-148) mmol/L Potassium 3.5 (3.5-5.1) mmol/L Chloride 99 (98-107) mmol/L Carbon Dioxide 21.7 (21.0-32.0) mmol/L BUN 12 (7.0-18.0) mg/dL Creatinine 1.3 (0.8-1.3) mg/dL Est Cr Clr Drug Dosing 60.73 mL/min Estimated GFR (MDRD) 57.5 ml/min Glucose 195 H (74-106) mg/dL Calcium 9.2 (8.5-10.1) mg/dL Phosphorus (2.6-4.7) mg/dL Magnesium 2.3 (1.8-2.4) mg/dL Total Bilirubin 1.8 H (0.2-1.0) mg/dL AST 31 (15-37) IU/L ALT 29 (14-63) IU/L Alkaline Phosphatase 107 (46-116) U/L Total Protein 7.8 (6.4-8.2) g/dL Albumin 3.7 (3.4-5.0) g/dL Globulin 4.1 H (2.6-4.0) g/dL Albumin/Globulin Ratio 0.9 (0.9-1.6) Urine Color Urine Appearance Urine pH (5.0-8.0) Ur Specific [place] (1.001-1.035) Urine Protein (NEGATIVE) mg/dL Urine Glucose (UA) (NEGATIVE) mg/dL Urine Ketones (NEGATIVE) mg/dL Urine Occult Blood (NEGATIVE) Urine Nitrite (NEGATIVE) Urine Bilirubin (NEGATIVE) Urine Urobilinogen (<2.0) EU/dL Ur Leukocyte Esterase (NEGATIVE) Urine Opiates Screen (NEGATIVE) Ur Oxycodone Screen (NEGATIVE) Urine Methadone Screen (NEGATIVE) Ur Barbiturates Screen (NEGATIVE) Ur Phencyclidine Scrn (NEGATIVE) Ur Amphetamine Screen (NEGATIVE) U Methamphetamines Scrn (NEGATIVE) U Benzodiazepines Scrn (NEGATIVE) U Cocaine Metab Screen (NEGATIVE) U Marijuana (THC) Screen (NEGATIVE) Ethyl Alcohol <3 mg/dL SARS-CoV-2 RNA (DAVE) NEGATIVE (NEGATIVE) 06/07/21 06/07/21 06/07/21 Range/Units 06:05 06:05 06:30 WBC 6.16 (4.0-11.0) K/uL RBC 3.92 L (4.50-5.90) M/uL Hgb 12.6 L (13.0-17.0) g/dL Hct 37.9 L (38.0-50.0) % MCV 96.7 (80.0-98.0) fL MCH 32.1 H (27.0-32.0) pg MCHC 33.2 (31.0-37.0) g/dL RDW Std Deviation 47.3 (28.0-62.0) fl RDW Coeff of Leila 14 (11.0-15.0) % Plt Count 171 (150-400) K/uL MPV 10.00 (7.40-12.00) fL Neut % (Auto) 66.5 (48.0-80.0) % Lymph % (Auto) 20.5 (16.0-40.0) % [place] % (Auto) 12.0 (0.0-15.0) % Eos % (Auto) 0.5 (0.0-7.0) % Baso % (Auto) 0.5 (0.0-1.5) % Neut # (Auto) 4.1 (1.4-5.7) K/uL Lymph # (Auto) 1.3 (0.6-2.4) K/uL [place] # (Auto) 0.7 (0.0-0.8) K/uL Eos # (Auto) 0.0 (0.0-0.7) K/uL Baso # (Auto) 0.0 (0.0-0.1) K/uL Nucleated RBC % 0.0 /100WBC Nucleated RBCs # 0 K/uL Sodium 136 (136-148) mmol/L Potassium 3.9 (3.5-5.1) mmol/L Chloride 102 (98-107) mmol/L Carbon Dioxide 22.7 (21.0-32.0) mmol/L BUN 10 (7.0-18.0) mg/dL Creatinine 0.8 (0.8-1.3) mg/dL Est Cr Clr Drug Dosing 98.69 mL/min Estimated GFR (MDRD) > 60.0 ml/min Glucose 86 (74-106) mg/dL Calcium 8.3 L (8.5-10.1) mg/dL Phosphorus 3.8 (2.6-4.7) mg/dL Magnesium 2.4 (1.8-2.4) mg/dL Total Bilirubin 1.4 H (0.2-1.0) mg/dL AST 29 (15-37) IU/L ALT 27 (14-63) IU/L Alkaline Phosphatase 79 (46-116) U/L Total Protein 6.4 (6.4-8.2) g/dL Albumin 2.9 L (3.4-5.0) g/dL Globulin 3.5 (2.6-4.0) g/dL Albumin/Globulin Ratio 0.8 L (0.9-1.6) Urine Color YELLOW Urine Appearance CLEAR Urine pH 6.0 (5.0-8.0) Ur Specific [place] 1.010 (1.001-1.035) Urine Protein NEGATIVE (NEGATIVE) mg/dL Urine Glucose (UA) NEGATIVE (NEGATIVE) mg/dL Urine Ketones NEGATIVE (NEGATIVE) mg/dL Urine Occult Blood NEGATIVE (NEGATIVE) Urine Nitrite NEGATIVE (NEGATIVE) Urine Bilirubin NEGATIVE (NEGATIVE) Urine Urobilinogen 0.2 (<2.0) EU/dL Ur Leukocyte Esterase NEGATIVE (NEGATIVE) Urine Opiates Screen (NEGATIVE) Ur Oxycodone Screen (NEGATIVE) Urine Methadone Screen (NEGATIVE) Ur Barbiturates Screen (NEGATIVE) Ur Phencyclidine Scrn (NEGATIVE) Ur Amphetamine Screen (NEGATIVE) U Methamphetamines Scrn (NEGATIVE) U Benzodiazepines Scrn (NEGATIVE) U Cocaine Metab Screen (NEGATIVE) U Marijuana (THC) Screen (NEGATIVE) Ethyl Alcohol mg/dL SARS-CoV-2 RNA (DAVE) (NEGATIVE) 06/07/21 Range/Units 06:30 WBC (4.0-11.0) K/uL RBC (4.50-5.90) M/uL Hgb (13.0-17.0) g/dL Hct (38.0-50.0) % MCV (80.0-98.0) fL MCH (27.0-32.0) pg MCHC (31.0-37.0) g/dL RDW Std Deviation (28.0-62.0) fl RDW Coeff of Leila (11.0-15.0) % Plt Count (150-400) K/uL MPV (7.40-12.00) fL Neut % (Auto) (48.0-80.0) % Lymph % (Auto) (16.0-40.0) % [place] % (Auto) (0.0-15.0) % Eos % (Auto) (0.0-7.0) % Baso % (Auto) (0.0-1.5) % Neut # (Auto) (1.4-5.7) K/uL Lymph # (Auto) (0.6-2.4) K/uL [place] # (Auto) (0.0-0.8) K/uL Eos # (Auto) (0.0-0.7) K/uL Baso # (Auto) (0.0-0.1) K/uL Nucleated RBC % /100WBC Nucleated RBCs # K/uL Sodium (136-148) mmol/L Potassium (3.5-5.1) mmol/L Chloride (98-107) mmol/L Carbon Dioxide (21.0-32.0) mmol/L BUN (7.0-18.0) mg/dL Creatinine (0.8-1.3) mg/dL Est Cr Clr Drug Dosing mL/min Estimated GFR (MDRD) ml/min Glucose (74-106) mg/dL Calcium (8.5-10.1) mg/dL Phosphorus (2.6-4.7) mg/dL Magnesium (1.8-2.4) mg/dL Total Bilirubin (0.2-1.0) mg/dL AST (15-37) IU/L ALT (14-63) IU/L Alkaline Phosphatase (46-116) U/L Total Protein (6.4-8.2) g/dL Albumin (3.4-5.0) g/dL Globulin (2.6-4.0) g/dL Albumin/Globulin Ratio (0.9-1.6) Urine Color Urine Appearance Urine pH (5.0-8.0) Ur Specific [place] (1.001-1.035) Urine Protein (NEGATIVE) mg/dL Urine Glucose (UA) (NEGATIVE) mg/dL Urine Ketones (NEGATIVE) mg/dL Urine Occult Blood (NEGATIVE) Urine Nitrite (NEGATIVE) Urine Bilirubin (NEGATIVE) Urine Urobilinogen (<2.0) EU/dL Ur Leukocyte Esterase (NEGATIVE) Urine Opiates Screen NEGATIVE (NEGATIVE) Ur Oxycodone Screen NEGATIVE (NEGATIVE) Urine Methadone Screen NEGATIVE (NEGATIVE) Ur Barbiturates Screen NEGATIVE (NEGATIVE) Ur Phencyclidine Scrn NEGATIVE (NEGATIVE) Ur Amphetamine Screen POSITIVE (NEGATIVE) U Methamphetamines Scrn POSITIVE (NEGATIVE) U Benzodiazepines Scrn POSITIVE (NEGATIVE) U Cocaine Metab Screen NEGATIVE (NEGATIVE) U Marijuana (THC) Screen NEGATIVE (NEGATIVE) Ethyl Alcohol mg/dL SARS-CoV-2 RNA (DAVE) (NEGATIVE) Result Diagrams: 06/07/21 06:05 06/07/21 06:05 Sepsis Event Note - Evaluation Sepsis Screening Result: No Definite Risk - Focused Exam Vital Signs: Vital Signs Temp Pulse Resp BP BP Pulse Ox 06/07/21 06:00 17 124/91 H 97 06/07/21 05:00 16 146/85 H 97 06/07/21 04:00 18 114/75 94 L 06/07/21 03:00 36.6 C 19 121/79 96 06/07/21 02:28 20 113/74 96 06/07/21 00:30 106 H 18 141/88 H 97 06/06/21 23:00 102 H 18 160/100 H 97 06/06/21 20:30 36.5 C 115 H 20 177/106 H 98 - Problem List (1) Alcohol withdrawal delirium SNOMED Code(s): 8229509 ICD Code: F10.231 - ALCOHOL DEPENDENCE WITH WITHDRAWAL DELIRIUM Status: Acute Current Visit: Yes (2) Alcohol withdrawal syndrome SNOMED Code(s): 050576919 ICD Code: F10.239 - ALCOHOL DEPENDENCE WITH WITHDRAWAL, UNSPECIFIED Status: Acute Current Visit: Yes Problem List Initiated/Reviewed/Updated: Yes Orders Last 24hrs: Active Orders 24 hr Category Date Time Status Patient Status [ADT] Routine ADT 06/07/21 00:20 Active CIWAA Assessment [RC] Q4H Care 06/07/21 02:36 Active Regular Diet [DIET] Diet 06/07/21 Breakfast Active Folic Acid Med 06/07/21 09:00 Active 1 mg SUBCUT DAILY LORazepam [Ativan] Med 06/07/21 02:36 Active See Protocol IVPUSH Q4H PRN Sodium Chloride 0.9% [Normal Saline] 1,000 ml Med 06/07/21 02:45 Active IV ASDIRECTED Sodium Chloride 0.9% [Saline Flush] Med 06/06/21 20:37 Active 10 ml FLUSH ASDIRECTED PRN Sodium Chloride 0.9% [Saline Flush] Med 06/06/21 20:37 Active 2.5 ml FLUSH ASDIRECTED PRN Thiamine [Vitamin B-1] Med 06/07/21 09:00 Active 100 mg IVPUSH DAILY Saline Lock Insert [OM.PC] Stat Oth 06/06/21 20:37 Ordered Medication Orders Folic Acid (Folic Acid 50 Mg/10 Ml Mdv) 1 mg SUBCUT DAILY [facility] Sodium Chloride (Normal Saline) 1,000 mls @ 125 mls/hr IV ASDIRECTED JANE Last Admin: 06/07/21 03:00 Dose: 125 mls/hr Documented by: APOLEVA Lorazepam (Lorazepam 2 Mg/Ml Sdv) 0 mg IVPUSH Q4H PRN; Protocol PRN Reason: Withdrawal Symptoms Last Admin: 06/07/21 07:05 Dose: 2 mg Documented by: APOLEVA Sodium Chloride (Sodium Chloride 0.9% 10 Ml Syringe) 10 ml FLUSH ASDIRECTED PRN PRN Reason: Keep Vein Open Sodium Chloride (Sodium Chloride 0.9% 2.5 Ml Syringe) 2.5 ml FLUSH ASDIRECTED PRN PRN Reason: Keep Vein Open Thiamine HCl (Thiamine 200 Mg/2 Ml Mdv) 100 mg IVPUSH DAILY [facility] Assessment/Plan Comment:: 55 yo male admitted for ETOH withdrawal with delirium. We will treat with Valium TID, Ativan prn CIWAA protocol, and thiamin and folic acid.
[2021-06-07] MEDS: Thiamine 200 MG/2 ML MDV IVPUSH SCH (08:04)
[2021-06-07] MEDS: Folic Acid 50 MG/10 ML MDV SUBCUT SCH (08:04)
[2021-06-07] MEDS: Diazepam 5 MG Tab PO SCH ×3 (10:12→21:10)
[2021-06-07] MEDS ORDERED: Enoxaparin 40 MG/0.4 ML Syringe SUBCUT SCH (12:00)
[2021-06-07] MEDS: Lisinopril 10 MG Tab PO SCH (19:04)
[2021-06-08] MEDS: Sodium Chloride 0.9% 1,000 ML IV SCH (04:26)
[2021-06-08] MEDS: Diazepam 5 MG Tab PO SCH (05:59)
[2021-06-08] MEDS: Thiamine 200 MG/2 ML MDV IVPUSH SCH (08:18)
[2021-06-08] MEDS: LORazepam 2 MG/ML SDV IVPUSH PRN (08:18)
[2021-06-08] MEDS: Folic Acid 50 MG/10 ML MDV SUBCUT SCH (08:19)
[2021-06-08] MEDS: Lisinopril 10 MG Tab PO SCH (08:20)
[2021-06-08 08:24] LABS: BLOOD UREA NITROGEN,BUN 5 mg/dL (7.0-18.0); CARBON DIOXIDE,CO2 23.4 mmol/L (21.0-32.0); CHLORIDE,CL 111 mmol/L (98-107); GLUCOSE RANDOM 88 mg/dL (74-106); SODIUM,NA 144 mmol/L (136-148)
--- NOTE | 2021-06-08 10:45 | PCM.DCSUM1 ---
Discharge Summary - Hospital Course Free Text/Narrative:: The patient is a 55-year-old male who was admitted to the medical floor due to alcohol withdrawal and hallucinations. Throughout his hospital course the patient has been agitated and anxious, and as a result has been on CIWA protocol with Ativan and Valium has also been used. Before admission he states that he was seeing snakes at different places, and it was explained to him that this is a common finding when the patient is abstaining from alcohol after long-term use. At first the patient was insistent that this did happen where he saw the snakes and that they were in his car and surroundings, however he did accept the notion that this may be a side effect of not drinking alcohol. The patient was counseled on different support groups for alcohol abstinence including alcoholics anonymous. He will also be sent home with a prescription of Librium 25 mg per oral route every 6 hours for a 2-day course. He has been advised to follow-up with his primary care provider in order to obtain a more permanent solution to his alcohol use. He has been counseled on being compliant with his medication and taking them at scheduled times. He has also been made to agree to return to the hospital if he has worsening delusions, agitation, thoughts of hurting himself or others. The patient is now stable and can be discharged home. - Discharge Data Discharge Date: 06/08/21 Discharge Disposition: Home, Self-Care 01 Condition: Stable - Referral to Home Health Primary Care Physician: Justina BANDA - Patient Instructions Diet: Regular Diet as Tolerated Activity: As Tolerated Showering/Bathing: May Shower Other/Special Instructions: -Take your regular medication at scheduled times. -Follow-up with your PCP. -Join alcoholics anonymous support group. -Return to the hospital if you have thoughts of hurting yourself or others, or hearing or seeing things - Discharge Plan Home Medications: Home Meds lisinopriL [Lisinopril] 10 mg PO DAILY 08/03/20 [History] tadalafiL [Tadalafil] 06/06/21 [History] Pantoprazole [ProTONIX] 40 mg PO DAILY 06/07/21 [History] Patient Handouts: Delirium Tremens, [id number], Alcohol Withdrawal Syndrome, [id number] Referrals: Justina BANDA [Primary Care Provider] - - Discharge Summary/Plan Comment DC Time >30 min.: Yes Total # of Minutes for Discharge Time: 35 minutes - Review of Systems General: Denies: Fever, Weakness, Fatigue HEENT: Denies: Headaches, Sore Throat Pulmonary: Denies: Shortness of Breath, Cough Cardiovascular: Denies: Chest Pain, Palpitations Gastrointestinal: Denies: Abdominal Pain Genitourinary: Denies: Dysuria Neurological: Denies: Confusion, Dizziness, Tremors, Difficulty Walking - Patient Data Vitals - Most Recent: Last Vital Signs Temp 98.9 F 06/08/21 08:00 Pulse 106 H 06/07/21 00:30 Resp 15 06/08/21 10:00 BP 143/89 H 06/08/21 10:00 Pulse Ox 97 06/08/21 10:00 Weight - Most Recent: 165 lb I&O - Last 24 hours: Intake & Output 06/07/21 06/08/21 06/08/21 22:59 06:59 14:59 Intake Total 2200 2132 Output Total 0 1375 Balance 2200 757 Lab Results - Last 24 hrs: Laboratory Results - last 24 hr 06/08/21 06/08/21 Range/Units 07:52 07:52 WBC 5.04 (4.0-11.0) K/uL RBC 3.85 L (4.50-5.90) M/uL Hgb 12.3 L (13.0-17.0) g/dL Hct 38.3 (38.0-50.0) % MCV 99.5 H (80.0-98.0) fL MCH 31.9 (27.0-32.0) pg MCHC 32.1 (31.0-37.0) g/dL RDW Std Deviation 49.3 (28.0-62.0) fl RDW Coeff of Leila 14 (11.0-15.0) % Plt Count 143 L (150-400) K/uL MPV 9.80 (7.40-12.00) fL Neut % (Auto) 69.4 (48.0-80.0) % Lymph % (Auto) 16.1 (16.0-40.0) % [place] % (Auto) 12.5 (0.0-15.0) % Eos % (Auto) 1.0 (0.0-7.0) % Baso % (Auto) 1.0 (0.0-1.5) % Neut # (Auto) 3.5 (1.4-5.7) K/uL Lymph # (Auto) 0.8 (0.6-2.4) K/uL [place] # (Auto) 0.6 (0.0-0.8) K/uL Eos # (Auto) 0.1 (0.0-0.7) K/uL Baso # (Auto) 0.1 (0.0-0.1) K/uL Nucleated RBC % 0.0 /100WBC Nucleated RBCs # 0 K/uL Sodium 144 (136-148) mmol/L Potassium 4.0 (3.5-5.1) mmol/L Chloride 111 H (98-107) mmol/L Carbon Dioxide 23.4 (21.0-32.0) mmol/L BUN 5 L (7.0-18.0) mg/dL Creatinine 0.8 (0.8-1.3) mg/dL Est Cr Clr Drug Dosing 98.69 mL/min Estimated GFR (MDRD) > 60.0 ml/min Glucose 88 (74-106) mg/dL Calcium 8.1 L (8.5-10.1) mg/dL Phosphorus 3.8 (2.6-4.7) mg/dL Magnesium 2.3 (1.8-2.4) mg/dL Total Bilirubin 1.2 H (0.2-1.0) mg/dL AST 29 (15-37) IU/L ALT 26 (14-63) IU/L Alkaline Phosphatase 74 (46-116) U/L Total Protein 6.0 L (6.4-8.2) g/dL Albumin 2.6 L (3.4-5.0) g/dL Globulin 3.4 (2.6-4.0) g/dL Albumin/Globulin Ratio 0.8 L (0.9-1.6) Med Orders - Current: Current Medications Diazepam (Diazepam 5 Mg Tab) 10 mg PO TID [facility] Last Admin: 06/08/21 05:59 Dose: 10 mg Documented by: Enoxaparin Sodium (Enoxaparin 40 Mg/0.4 Ml Syringe) 40 mg SUBCUT Q24H [facility] Last Admin: 06/07/21 12:55 Dose: 40 mg Documented by: Folic Acid (Folic Acid 50 Mg/10 Ml Mdv) 1 mg SUBCUT DAILY [facility] Last Admin: 06/08/21 08:19 Dose: 1 mg Documented by: Sodium Chloride (Normal Saline) 1,000 mls @ 125 mls/hr IV ASDIRECTED [facility] Last Admin: 06/08/21 04:26 Dose: 125 mls/hr Documented by: Lisinopril (Lisinopril 10 Mg Tab) 10 mg PO DAILY [facility] Last Admin: 06/08/21 08:20 Dose: 10 mg Documented by: Lorazepam (Lorazepam 2 Mg/Ml Sdv) 0 mg IVPUSH Q4H PRN; Protocol PRN Reason: Withdrawal Symptoms Last Admin: 06/07/21 21:13 Dose: 2 mg Documented by: Sodium Chloride (Sodium Chloride 0.9% 10 Ml Syringe) 10 ml FLUSH ASDIRECTED PRN PRN Reason: Keep Vein Open Sodium Chloride (Sodium Chloride 0.9% 2.5 Ml Syringe) 2.5 ml FLUSH ASDIRECTED PRN PRN Reason: Keep Vein Open Thiamine HCl (Thiamine 200 Mg/2 Ml Mdv) 100 mg IVPUSH DAILY [facility] Last Admin: 06/08/21 08:18 Dose: 100 mg Documented by: Discontinued Medications Sodium Chloride (Normal Saline) 1,000 mls @ 999 mls/hr IV .Bolus ONE Stop: 06/06/21 21:37 Last Admin: 06/06/21 20:48 Dose: 999 mls/hr Documented by: Levetiracetam 1,000 mg/ (Dextrose/Water) 110 mls @ 440 mls/hr IV Q12H STA Stop: 06/06/21 23:21 Last Admin: 06/06/21 23:30 Dose: Not Given Documented by: Lorazepam (Lorazepam 2 Mg/Ml Sdv) 2 mg IVPUSH ONETIME ONE Stop: 06/06/21 20:58 Last Admin: 06/06/21 21:03 Dose: 2 mg Documented by: Lorazepam (Lorazepam 2 Mg/Ml Sdv) 2 mg IVPUSH ONETIME ONE Stop: 06/06/21 22:26 Last Admin: 06/06/21 23:33 Dose: 2 mg Documented by: Lorazepam (Lorazepam 2 Mg/Ml Sdv) 4 mg IVPUSH ONETIME ONE Stop: 06/07/21 00:20 Last Admin: 06/07/21 00:35 Dose: 4 mg Documented by: Thiamine HCl (Thiamine 200 Mg/2 Ml Mdv) 100 mg IVPUSH ONETIME ONE Stop: 06/06/21 20:57 Last Admin: 06/06/21 21:03 Dose: 100 mg Documented by: - Exam General: Reports: Alert, Oriented, Cooperative HEENT: Reports: Mucous Membr. Moist/Apex Neck: Reports: Trachea Midline Lungs: Reports: Clear to Auscultation, Normal Respiratory Effort Cardiovascular: Reports: Regular Rate, Regular Rhythm GI/Abdominal Exam: Normal Bowel Sounds, Soft, Non-Tender Neurological: Reports: Normal Speech
[2021-06-08 12:35] VITALS: BP 114/73
== END 2021-06-08 12:25 | disposition home or self-care (01) | DRG 897 ==
LOC: MW.ED 20:18 → MW.ICU 06-07 00:52
PROVIDERS: ADMIT Internal Medicine; ATTEND Internal Medicine
DX: F10.231 Alcohol dependence with withdrawal delirium (principal); H54.7 Unspecified visual loss; I10 Essential (primary) hypertension; Z88.4 Allergy status to anesthetic agent; Z88.5 Allergy status to narcotic agent; Z79.899 Other long term (current) drug therapy; Z20.822 Contact with and (suspected) exposure to COVID-19
CPT/HCPCS: 36415; 70450; 70450-26; 80053; 80305-QW; 80307; 81003; 83735; 84100; 85025; 93005; 96374; 96375; 96376; 99285-25; A9270-GY; J1650; J2060; J3411; J7030; U0002

== ENCOUNTER 2021-06-14 10:19 | Emergency (ER) | payer SELFPAY ==
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
[2021-06-14 11:31] LABS: ACETAMINOPHEN <2.0 ug/mL; BLOOD UREA NITROGEN,BUN 11 mg/dL (7.0-18.0); CARBON DIOXIDE,CO2 22.6 mmol/L (21.0-32.0); CHLORIDE,CL 97 mmol/L (98-107); GLUCOSE RANDOM 129 mg/dL (74-106); POTASSIUM,K 3.5 mmol/L (3.5-5.1); SODIUM,NA 137 mmol/L (136-148)
--- NOTE | 2021-06-14 11:57 | CT ---
INDICATION: Hallucinations. COMPARISON: none TECHNIQUE: A CT volumetric acquisition was performed of the brain without IV contrast. FINDINGS: There is no evidence of a subdural or epidural hematoma. There is no evidence of subarachnoid hemorrhage or intraparenchymal bleeding. The CT images reveal a normal appearance of the cerebral ventricles and basal cisterns. There is no evidence of localized tissue infarction or mass effect. There is normal frank white matter differentiation. The mastoid air cells and middle ear cavities are clear. The calvarium appears intact. There is mild inflammation within the maxillary sinuses. IMPRESSION: No evidence of intracranial mass, hemorrhage or tissue infarction. Please note that all CT scans at this facility use dose modulation, iterative reconstruction, and/or weight-based dosing when appropriate to reduce radiation dose to as low as reasonably achievable. Dictated by Krzysztof Baer MD @ 06/14/2021 11:55:07 AM (Electronically Signed)
[2021-06-14 13:32] VITALS: BP 142/94; PULSE 87
== END 2021-06-14 13:34 | disposition home or self-care (01) ==
LOC: MW.ED 10:19
DX: R44.0 Auditory hallucinations (principal); I10 Essential (primary) hypertension; Z72.0 Tobacco use; Z88.4 Allergy status to anesthetic agent; Z88.5 Allergy status to narcotic agent; Z79.899 Other long term (current) drug therapy
CPT/HCPCS: 36415; 70450; 70450-26; 80053; 80143; 80179; 80305-QW; 80307; 85025; 99285-25

== ENCOUNTER 2021-10-13 18:57 | Emergency (ER) | payer SELFPAY ==
[2021-10-13 20:31] LABS: BLOOD UREA NITROGEN,BUN 8 mg/dL (7.0-18.0); CARBON DIOXIDE,CO2 23.2 mmol/L (21.0-32.0); CHLORIDE,CL 105 mmol/L (98-107); GLUCOSE RANDOM 97 mg/dL (74-106); POTASSIUM,K 3.9 mmol/L (3.5-5.1); SODIUM,NA 140 mmol/L (136-148)
[2021-10-13] MEDS ORDERED: Amoxicillin/Clavulanate K 875-125 MG Tab PO ONE (21:03)
[2021-10-13 23:30] VITALS: BP 141/86; PULSE 88
== END 2021-10-13 21:30 | disposition home or self-care (01) ==
LOC: MW.ED 18:57
DX: J01.00 Acute maxillary sinusitis, unspecified (principal); J06.9 Acute upper respiratory infection, unspecified; I10 Essential (primary) hypertension; Z88.4 Allergy status to anesthetic agent; Z88.6 Allergy status to analgesic agent; Z79.899 Other long term (current) drug therapy
CPT/HCPCS: 36415; 71045; 80053; 84484; 85025; 86308; 87651; 99283; A9270; 99282

== ENCOUNTER 2022-10-11 13:01 | Emergency (ER) | payer SELFPAY ==
[2022-10-11] MEDS ORDERED: Ondansetron 4 MG/2 ML SDV IVPUSH ONE (14:15)
[2022-10-11] MEDS ORDERED: Pantoprazole 80 MG in Sodium Chloride 0.9% 10 ML IVPUSH ONE (14:17)
[2022-10-11] MEDS ORDERED: Sodium Chloride 0.9% 1,000 ML IV ONE ×2 (14:19→17:10)
[2022-10-11] MEDS ORDERED: LORazepam 2 MG/ML SDV IVPUSH ONE ×4 (14:52→18:40)
[2022-10-11 15:27] LABS: CARBON DIOXIDE,CO2 21.8 mmol/L (21.0-32.0); POTASSIUM,K 3.4 mmol/L (3.5-5.1)
[2022-10-11] MEDS ORDERED: Iopamidol 755 MG/ML 500 ML Multipack Bottle IVPUSH ONE (15:54)
[2022-10-11 18:19] VITALS: BP 140/87; PULSE 99
[2022-10-11] MEDS ORDERED: fentaNYL 50 MCG/ML SDV IVPUSH ONE (18:28)
== END 2022-10-11 18:54 ==
LOC: MW.ED 13:01
DX: S22.42XA Multiple fractures of ribs, left side, initial encounter for closed fracture (principal); S20.224A Contusion of middle back wall of thorax, initial encounter; K92.2 Gastrointestinal hemorrhage, unspecified; F10.230 Alcohol dependence with withdrawal, uncomplicated; I10 Essential (primary) hypertension; Z88.4 Allergy status to anesthetic agent; Z88.5 Allergy status to narcotic agent; Z79.899 Other long term (current) drug therapy; W18.2XXA Fall in (into) shower or empty bathtub, initial encounter
CPT/HCPCS: 36415; 71260; 74177; 80053; 83690; 85025; 96361; 96374; 96375; 96376; 99285; C9113; J2060; J2405; J3010; J3490; J7030; Q9967

== ENCOUNTER 2023-02-18 16:11 | Emergency (ER) | payer SELFPAY | END 2023-02-18 17:01 | disposition left against medical advice (07) | LOC: EDBD → MW.ED 16:11 → MERGE 16:11 → MW.ED 17:00 | DX: Z53.21 Procedure and treatment not carried out due to patient leaving prior to being seen by health care provider (principal) ==

== ENCOUNTER 2023-02-18 16:17 | Emergency (ER) | payer SELFPAY ==
[~2023-02-18 16:17] MED LIST: Sodium Chloride 0.9% 1,000 ML IV SCH
[2023-02-18] MEDS ORDERED: Sodium Chloride 0.9% 1,000 ML IV ONE (16:19)
[2023-02-18] MEDS ORDERED: Sodium Chloride 0.9% 2.5 ML Syringe FLUSH PRN ×2 (16:19)
[2023-02-18] MEDS ORDERED: Diphtheria,Pertussis(Acell),Tetanus Vaccine 0.5 ML Syringe IM ONE (16:19)
[2023-02-18] MEDS ORDERED: Sodium Chloride 0.9% 10 ML Syringe FLUSH PRN ×2 (16:19)
[2023-02-18] MEDS ORDERED: Sodium Chloride 0.9% 1,000 ML IV STA (16:30)
[2023-02-18] MEDS ORDERED: Sodium Chloride 0.9% 1,000 ML IV SCH (16:30)
[2023-02-18] MEDS ORDERED: LORazepam 2 MG/ML SDV ONE ×2 (16:40)
[2023-02-18] MEDS ORDERED: LORazepam 2 MG/ML SDV IVPUSH ONE (16:42)
[2023-02-18] MEDS ORDERED: Etomidate 2 MG/ML 20 ML SDV IVPUSH ONE (16:52)
[2023-02-18] MEDS ORDERED: Rocuronium 50 MG/5 ML Vial IVPUSH ONE (16:53)
[2023-02-18] MEDS ORDERED: propofoL 100 ML IV SCH (17:15)
[2023-02-18 17:16] VITALS: BP 160/103; PULSE 92
[2023-02-18] MEDS ORDERED: Iopamidol 755 Mg/ML 100 ML Bottle IVPUSH ONE ×2 (17:40)
[2023-02-18 18:01] LABS: BILIRUBIN,URINE NEGATIVE (NEGATIVE); GLUCOSE,URINE NEGATIVE (NEGATIVE); KETONES,URINE NEGATIVE (NEGATIVE); LEUKOCYTE ESTERASE,URINE NEGATIVE (NEGATIVE); NITRITE,URINE NEGATIVE (NEGATIVE); OCCULT BLOOD,URINE SMALL (NEGATIVE); PROTEIN,URINE NEGATIVE (NEGATIVE)
[2023-02-18 18:11] LABS: AMPHETAMINES SCREEN, URINE NEGATIVE (CUTOFF=500); BARBITURATE SCREEN,URINE NEGATIVE (CUTOFF=200); BENZODIAZEPINES SCREEN,URINE NEGATIVE (CUTOFF=150); BUPRENORPHINE SCREEN,URINE NEGATIVE (CUTOFF=10); METHADONE SCREEN, URINE NEGATIVE (CUTOFF=200); METHAMPHETAMINES SCREEN, URINE NEGATIVE (CUTOFF=500); OXYCODONE SCREEN,URINE NEGATIVE (CUT0FF=100); PCP SCREEN,URINE NEGATIVE (CUTOFF=25); PROPOXYPHENE SCREEN,URINE NEGATIVE (CUTOFF=300); THC SCREEN,URINE 20 NG/ML NEGATIVE (CUTOFF=50)
[2023-02-18 18:14] LABS: APPEARANCE,URINE SLT CLOUDY; COLOR,URINE AMBER
[2023-02-18 18:15] LABS: BACTERIA,URINE FEW (NEGATIVE); EPITHELIAL CELLS,URINE OCCASIONAL (NONE-FEW)
== END 2023-02-18 19:05 ==
LOC: MW.ED 16:19
DX: S32.039A Unspecified fracture of third lumbar vertebra, initial encounter for closed fracture (principal); S52.102A Unspecified fracture of upper end of left radius, initial encounter for closed fracture; S52.502A Unspecified fracture of the lower end of left radius, initial encounter for closed fracture; S22.42XA Multiple fractures of ribs, left side, initial encounter for closed fracture; S36.81XA Injury of peritoneum, initial encounter; R56.9 Unspecified convulsions; I10 Essential (primary) hypertension; Z88.5 Allergy status to narcotic agent; Z88.8 Allergy status to other drugs, medicaments and biological substances; Z79.899 Other long term (current) drug therapy; Z23 Encounter for immunization
CPT/HCPCS: 25565; 25605; 31500; 43752; 51702; 70450; 71045; 71260; 72125; 72128; 72131; 72170; 73090; 74177; 80305; 81001; 82947; 90471; 90715; 96360; 96361; 99291; G0390; J2060; J2704; J3490; J7030; Q9967

== ENCOUNTER 2023-04-20 04:26 | Inpatient (IN) | payer OTHER, MEDICAID ==
[2023-04-20] MEDS ORDERED: Ondansetron 4 MG/2 ML SDV IVPUSH ONE ×2 (04:28→07:16)
[2023-04-20] MEDS ORDERED: Lactated Ringers 1,000 ML IV SCH (04:30)
[2023-04-20 04:40] LABS: BASOPHILS ABSOLUTE AUTO 0.02 K/uL (0.00-0.20); BASOPHILS PERCENT AUTO 0.3 % (0.0-1.0); HEMATOCRIT 42.2 % (42.0-52.0); HEMOGLOBIN 14.2 g/dL (14.0-18.0); LYMPHOCYTES ABSOLUTE AUTO 0.95 K/uL (1.00-4.80); LYMPHOCYTES PERCENT AUTO 12.4 % (24.0-44.0); MEAN CORPUSCULAR HEMOGLOBIN 32.3 pg (28.0-32.0); MEAN CORPUSCULAR HGB CONC 33.6 g/dL (32.0-36.0); MEAN CORPUSCULAR VOLUME 95.9 fL (83.0-99.0); MEAN PLATELET VOLUME 9.1 fL (9.4-12.4); MONOCYTES ABSOLUTE AUTO 0.64 K/uL (0.00-0.80); MONOCYTES PERCENT AUTO 8.4 % (0.0-8.0); NEUTROPHILS PERCENT AUTO 78.6 % (41.0-71.0); PLATELET COUNT,PLT 170 K/uL (150-400); WHITE BLOOD CELL COUNT,WBC 7.66 K/uL (3.9-11.3)
[2023-04-20] MEDS ORDERED: Famotidine 20 MG/2 ML SDV IVPUSH ONE (04:42)
[2023-04-20] MEDS ORDERED: Pantoprazole 80 MG in Sodium Chloride 0.9% 10 ML IVPUSH ONE (04:42)
[2023-04-20 04:53] LABS: INR 1.07 (0.86-1.11)
[2023-04-20] MEDS: Aluminum Hydroxide/Magnesium Hydroxide/Simethicone XS Susp 30 ML Cup PO ONE ×2 (05:07→06:35)
[2023-04-20 05:13] LABS: ACETAMINOPHEN <2.0 ug/mL; ALANINE AMINOTRANSFERASE,ALT 35 IU/L (14-63); ALBUMIN 3.5 g/dL (3.4-5.0); ALKALINE PHOSPHATASE 179 U/L (46-116); ASPARTATE AMNIOTRANSFERASE,AST 99 IU/L (15-37); BILIRUBIN TOTAL 1.7 mg/dL (0.2-1.0); BLOOD UREA NITROGEN,BUN 8 mg/dL (7.0-18.0); CALCIUM 8.1 mg/dL (8.5-10.1); CARBON DIOXIDE,CO2 19.9 mmol/L (21.0-32.0); CHLORIDE,CL 100 mmol/L (98-107); CREATININE 0.9 mg/dL (0.8-1.3); ETHANOL BLOOD MEDICAL 270 mg/dL; GLUCOSE RANDOM 126 mg/dL (74-106); LIPASE 23 U/L (16-77); POTASSIUM,K 3.8 mmol/L (3.5-5.1); SALICYLATE <0.2 mg/dL (0.0-20.0); SODIUM,NA 137 mmol/L (136-148); TSH ULTRASENSITIVE 1.12 uIU/mL (0.36-3.74)
[2023-04-20] MEDS ORDERED: PHENobarbital Sodium 130 MG/ML SDV ONE (05:14)
[2023-04-20 05:25] LABS: ESTIMATED GFR 100 mL/min (>60)
[2023-04-20] MEDS ORDERED: Acetaminophen 325 MG Tab PO PRN (09:30)
[2023-04-20] MEDS ORDERED: Lactated Ringers 1,000 ML IV ONE (09:38)
[2023-04-20] MEDS ORDERED: Thiamine 100 MG in Sodium Chloride 0.9% 100 ML IV SCH (10:00)
[2023-04-20] MEDS: Folic Acid 1 MG/0.2 ML UD Syringe IV SCH (10:03)
[2023-04-20] MEDS: Thiamine 200 MG/2 ML MDV IVPUSH SCH (10:03)
[2023-04-20] MEDS: Sucralfate Suspension 1 GM/10 ML Cup PO SCH ×3 (10:04→23:23)
[2023-04-20] MEDS: Aluminum Hydroxide/Magnesium Hydroxide/Simethicone XS Susp 30 ML Cup PO SCH ×3 (10:09→23:23)
[2023-04-20] MEDS ORDERED: Sucralfate Suspension 1 GM/10 ML Cup PO SCH (11:30)
[2023-04-20] MEDS: LORazepam 2 MG/ML SDV IVPUSH PRN ×2 (12:28→20:34)
[2023-04-20] MEDS: Ondansetron 4 MG/2 ML SDV IVPUSH PRN ×2 (16:23→20:33)
[2023-04-20] MEDS: Pantoprazole 40 MG in Sodium Chloride 0.9% 10 ML IVPUSH SCH (17:54)
[2023-04-20] MEDS ORDERED: Acetaminophen/oxyCODONE 325-5 MG Tab PO PRN (22:41)
[2023-04-21] MEDS: Sucralfate Suspension 1 GM/10 ML Cup PO SCH ×4 (03:27→22:32)
[2023-04-21] MEDS: Ondansetron 4 MG/2 ML SDV IVPUSH PRN ×4 (03:27→22:58)
[2023-04-21] MEDS: Aluminum Hydroxide/Magnesium Hydroxide/Simethicone XS Susp 30 ML Cup PO SCH ×4 (03:27→22:31)
[2023-04-21] MEDS: Pantoprazole 40 MG in Sodium Chloride 0.9% 10 ML IVPUSH SCH ×2 (05:36→17:13)
[2023-04-21 06:49] LABS: BASOPHILS ABSOLUTE AUTO 0.05 K/uL (0.00-0.20); BASOPHILS PERCENT AUTO 0.8 % (0.0-1.0); EOSINOPHILS ABSOLUTE AUTO 0.02 K/uL (0.00-0.45); EOSINOPHILS PERCENT AUTO 0.3 % (0.0-6.0); HEMATOCRIT 35.7 % (42.0-52.0); HEMOGLOBIN 11.9 g/dL (14.0-18.0); LYMPHOCYTES ABSOLUTE AUTO 1.64 K/uL (1.00-4.80); LYMPHOCYTES PERCENT AUTO 25.1 % (24.0-44.0); MEAN CORPUSCULAR HEMOGLOBIN 32.4 pg (28.0-32.0); MEAN CORPUSCULAR HGB CONC 33.3 g/dL (32.0-36.0); MEAN CORPUSCULAR VOLUME 97.3 fL (83.0-99.0); MONOCYTES ABSOLUTE AUTO 0.77 K/uL (0.00-0.80); MONOCYTES PERCENT AUTO 11.8 % (0.0-8.0); NEUTROPHILS ABSOLUTE AUTO 4.1 K/uL (1.8-7.7); NEUTROPHILS PERCENT AUTO 61.8 % (41.0-71.0); PLATELET COUNT,PLT 112 K/uL (150-400); RED BLOOD CELL COUNT 3.67 M/uL (4.52-5.90); WHITE BLOOD CELL COUNT,WBC 6.54 K/uL (3.9-11.3)
[2023-04-21 07:29] LABS: A/G RATIO 0.9 (0.9-1.6); ALBUMIN 2.8 g/dL (3.4-5.0); BILIRUBIN TOTAL 1.9 mg/dL (0.2-1.0); CALCIUM 8.2 mg/dL (8.5-10.1); CARBON DIOXIDE,CO2 29.6 mmol/L (21.0-32.0); CREATININE 0.7 mg/dL (0.8-1.3); EST CRCL DRUG DOSING (CG) 106.33 mL/min; POTASSIUM,K 3.5 mmol/L (3.5-5.1)
[2023-04-21] MEDS: Folic Acid 1 MG/0.2 ML UD Syringe IV SCH (08:33)
[2023-04-21] MEDS: Thiamine 200 MG/2 ML MDV IVPUSH SCH (08:33)
[2023-04-22] MEDS: LORazepam 2 MG/ML SDV IVPUSH PRN (00:25)
[2023-04-22] MEDS: Sucralfate Suspension 1 GM/10 ML Cup PO SCH ×2 (04:26→09:01)
[2023-04-22] MEDS: Aluminum Hydroxide/Magnesium Hydroxide/Simethicone XS Susp 30 ML Cup PO SCH ×2 (04:26→09:01)
[2023-04-22] MEDS: Ondansetron 4 MG/2 ML SDV IVPUSH PRN (04:26)
[2023-04-22] MEDS: Pantoprazole 40 MG in Sodium Chloride 0.9% 10 ML IVPUSH SCH ×2 (04:27→04:56)
[2023-04-22 06:16] LABS: BASOPHILS ABSOLUTE AUTO 0.05 K/uL (0.00-0.20); BASOPHILS PERCENT AUTO 0.9 % (0.0-1.0); EOSINOPHILS ABSOLUTE AUTO 0.06 K/uL (0.00-0.45); EOSINOPHILS PERCENT AUTO 1.1 % (0.0-6.0); HEMATOCRIT 36.3 % (42.0-52.0); IMMATURE GRAN ABSOLUTE AUTO 0.02 K/uL (0.00-0.05); IMMATURE GRAN PERCENT AUTO 0.4 % (0.0-0.4); LYMPHOCYTES ABSOLUTE AUTO 1.52 K/uL (1.00-4.80); LYMPHOCYTES PERCENT AUTO 27.4 % (24.0-44.0); MEAN CORPUSCULAR HEMOGLOBIN 32.2 pg (28.0-32.0); MEAN CORPUSCULAR HGB CONC 33.1 g/dL (32.0-36.0); MEAN CORPUSCULAR VOLUME 97.3 fL (83.0-99.0); MEAN PLATELET VOLUME 10.1 fL (9.4-12.4); MONOCYTES ABSOLUTE AUTO 0.65 K/uL (0.00-0.80); MONOCYTES PERCENT AUTO 11.7 % (0.0-8.0); NEUTROPHILS ABSOLUTE AUTO 3.2 K/uL (1.8-7.7); NEUTROPHILS PERCENT AUTO 58.5 % (41.0-71.0); PLATELET COUNT,PLT 121 K/uL (150-400); RED BLOOD CELL COUNT 3.73 M/uL (4.52-5.90); WHITE BLOOD CELL COUNT,WBC 5.54 K/uL (3.9-11.3)
[2023-04-22 06:54] LABS: A/G RATIO 0.9 (0.9-1.6); ALBUMIN 2.9 g/dL (3.4-5.0); BILIRUBIN TOTAL 1.5 mg/dL (0.2-1.0); CALCIUM 8.3 mg/dL (8.5-10.1); CARBON DIOXIDE,CO2 26.1 mmol/L (21.0-32.0); CREATININE 0.9 mg/dL (0.8-1.3); EST CRCL DRUG DOSING (CG) 82.7 mL/min; POTASSIUM,K 3.4 mmol/L (3.5-5.1); PROTEIN TOTAL,TP 6.1 g/dL (6.4-8.2)
[2023-04-22] MEDS ORDERED: Potassium Chloride 20 MEQ Tab.ER PO ONE (08:15)
[2023-04-22] MEDS: Folic Acid 1 MG/0.2 ML UD Syringe IV SCH (08:54)
[2023-04-22] MEDS: Thiamine 200 MG/2 ML MDV IVPUSH SCH (08:54)
[2023-04-22 14:14] VITALS: BP 139/89; PULSE 81
== END 2023-04-22 14:50 | disposition home or self-care (01) | DRG 378 ==
LOC: MW.ED 04:26 → MW.ICU 08:10 → MW.MS 04-21 11:08
PROVIDERS: ADMIT Family Medicine; ATTEND Family Medicine
DX: K29.21 Alcoholic gastritis with bleeding (principal); F10.239 Alcohol dependence with withdrawal, unspecified; Z20.822 Contact with and (suspected) exposure to COVID-19; I10 Essential (primary) hypertension; F41.9 Anxiety disorder, unspecified; Z66 Do not resuscitate; K21.9 Gastro-esophageal reflux disease without esophagitis; Z79.899 Other long term (current) drug therapy; Z88.8 Allergy status to other drugs, medicaments and biological substances; Z87.11 Personal history of peptic ulcer disease; V89.2XXA Person injured in unspecified motor-vehicle accident, traffic, initial encounter; Z88.5 Allergy status to narcotic agent
CPT/HCPCS: 36415; 71045; 71045-26; 80053; 80143; 80179; 80307; 83690; 83735; 84100; 84443; 85025; 85610; 85730; 86850; 86900; 86901; 93005; 93010; 96361; 96365; 96375; 96376; 99284; 99285-25; A9270-GY; C9113; J2060; J2405; J2560; J3411; J3490; J7120; U0002

== ENCOUNTER 2023-06-13 12:49 | Emergency (ER) | payer MEDICAID ==
[2023-06-13 15:05] VITALS: BP 147/88; PULSE 80
[2023-06-13] MEDS: Ketorolac 30 MG/ML SDV IM ONE (15:05)
== END 2023-06-13 15:09 | disposition home or self-care (01) ==
LOC: MW.ED 12:49
DX: S60.222A Contusion of left hand, initial encounter (principal); I10 Essential (primary) hypertension; K21.9 Gastro-esophageal reflux disease without esophagitis; Z79.899 Other long term (current) drug therapy; Z88.4 Allergy status to anesthetic agent; Z88.5 Allergy status to narcotic agent; X58.XXXA Exposure to other specified factors, initial encounter; Y93.K1 Activity, walking an animal
CPT/HCPCS: 73110; 73130; 96372; 99283; J1885

== ENCOUNTER 2023-06-27 17:49 | Inpatient (IN) | payer SELFPAY ==
[2023-06-27] MEDS ORDERED: Sodium Chloride 0.9% 2,000 ML IV ONE (19:28)
[2023-06-27] MEDS ORDERED: Ondansetron 4 MG/2 ML SDV IVPUSH ONE (19:29)
[2023-06-27] MEDS ORDERED: Pantoprazole 80 MG in Sodium Chloride 0.9% 10 ML IVPUSH ONE (19:29)
[2023-06-27] MEDS ORDERED: Sodium Chloride 0.9% 2.5 ML Syringe FLUSH PRN (19:29)
[2023-06-27] MEDS ORDERED: Sodium Chloride 0.9% 10 ML Syringe FLUSH PRN (19:29)
[2023-06-27 20:26] LABS: BASOPHILS ABSOLUTE AUTO 0.06 K/uL (0.00-0.20); BASOPHILS PERCENT AUTO 0.5 % (0.0-1.0); HEMATOCRIT 42.5 % (42.0-52.0); HEMOGLOBIN 14.7 g/dL (14.0-18.0); IMMATURE GRAN ABSOLUTE AUTO 0.08 K/uL (0.00-0.05); IMMATURE GRAN PERCENT AUTO 0.7 % (0.0-0.4); LYMPHOCYTES ABSOLUTE AUTO 0.41 K/uL (1.00-4.80); LYMPHOCYTES PERCENT AUTO 3.6 % (24.0-44.0); MEAN CORPUSCULAR HEMOGLOBIN 33.6 pg (28.0-32.0); MEAN CORPUSCULAR HGB CONC 34.6 g/dL (32.0-36.0); MEAN PLATELET VOLUME 9.8 fL (9.4-12.4); MONOCYTES ABSOLUTE AUTO 0.79 K/uL (0.00-0.80); NEUTROPHILS ABSOLUTE AUTO 9.97 K/uL (1.80-7.70); NEUTROPHILS PERCENT AUTO 88.2 % (41.0-71.0); PLATELET COUNT,PLT 136 K/uL (150-400); RED BLOOD CELL COUNT 4.38 M/uL (4.52-5.90); WHITE BLOOD CELL COUNT,WBC 11.31 K/uL (3.9-11.3)
[2023-06-27 20:43] LABS: A/G RATIO 1.1 (0.9-1.6); ALBUMIN 3.9 g/dL (3.4-5.0); BILIRUBIN TOTAL 4.4 mg/dL (0.2-1.0); CALCIUM 9.3 mg/dL (8.5-10.1); CARBON DIOXIDE,CO2 25.9 mmol/L (21.0-32.0); EST CRCL DRUG DOSING (CG) 82.48 mL/min; POTASSIUM,K 4.3 mmol/L (3.5-5.1); PROTEIN TOTAL,TP 7.5 g/dL (6.4-8.2)
[2023-06-27] MEDS ORDERED: Iopamidol 755 MG/ML 500 ML Multipack Bottle IVPUSH ONE (22:04)
[2023-06-28] MEDS ORDERED: Metoclopramide 10 MG/2 ML SDV IVPUSH ONE (01:10)
[2023-06-28] MEDS ORDERED: Sodium Chloride 0.9% 1,000 ML IV ONE (01:10)
[2023-06-28] MEDS ORDERED: LORazepam 1 MG Tab PO ONE (02:29)
[2023-06-28] MEDS ORDERED: LORazepam 2 MG/ML SDV IVPUSH PRN (11:20)
[2023-06-28] MEDS ORDERED: Acetaminophen 325 MG Tab PO PRN (11:20)
[2023-06-28] MEDS ORDERED: Ondansetron 4 MG/2 ML SDV IVPUSH PRN (11:20)
[2023-06-28] MEDS ORDERED: Thiamine 100 MG in Sodium Chloride 0.9% 100 ML IV SCH (11:30)
[2023-06-28] MEDS ORDERED: Pantoprazole 40 MG in Sodium Chloride 0.9% 10 ML IVPUSH SCH (12:00)
[2023-06-28 12:10] LABS: BASOPHILS ABSOLUTE AUTO 0.03 K/uL (0.00-0.20); BASOPHILS PERCENT AUTO 0.5 % (0.0-1.0); HEMATOCRIT 33.7 % (42.0-52.0); HEMOGLOBIN 11.6 g/dL (14.0-18.0); IMMATURE GRAN ABSOLUTE AUTO 0.03 K/uL (0.00-0.05); IMMATURE GRAN PERCENT AUTO 0.5 % (0.0-0.4); LYMPHOCYTES ABSOLUTE AUTO 0.99 K/uL (1.00-4.80); LYMPHOCYTES PERCENT AUTO 15.6 % (24.0-44.0); MEAN CORPUSCULAR HEMOGLOBIN 34.1 pg (28.0-32.0); MEAN CORPUSCULAR HGB CONC 34.4 g/dL (32.0-36.0); MEAN CORPUSCULAR VOLUME 99.1 fL (83.0-99.0); MEAN PLATELET VOLUME 9.5 fL (9.4-12.4); MONOCYTES ABSOLUTE AUTO 0.62 K/uL (0.00-0.80); MONOCYTES PERCENT AUTO 9.8 % (0.0-8.0); NEUTROPHILS ABSOLUTE AUTO 4.66 K/uL (1.80-7.70); NEUTROPHILS PERCENT AUTO 73.6 % (41.0-71.0); PLATELET COUNT,PLT 103 K/uL (150-400); WHITE BLOOD CELL COUNT,WBC 6.33 K/uL (3.9-11.3)
[2023-06-28] MEDS: Enoxaparin 40 MG/0.4 ML Syringe SUBCUT SCH (12:12)
[2023-06-28] MEDS: Thiamine 200 MG/2 ML MDV IVPUSH SCH (12:29)
[2023-06-28] MEDS: Folic Acid 1 MG/0.2 ML UD Syringe IV SCH (12:29)
[2023-06-28] MEDS: Sodium Chloride 0.9% 1,000 ML IV SCH ×2 (12:33→21:20)
[2023-06-28 12:42] LABS: A/G RATIO 1.1 (0.9-1.6); ALBUMIN 2.9 g/dL (3.4-5.0); BILIRUBIN TOTAL 3.4 mg/dL (0.2-1.0); CALCIUM 8.4 mg/dL (8.5-10.1); CARBON DIOXIDE,CO2 27.2 mmol/L (21.0-32.0); CREATININE 0.8 mg/dL (0.8-1.3); EST CRCL DRUG DOSING (CG) 96.4 mL/min; MAGNESIUM 2.1 mg/dL (1.8-2.4); PHOSPHORUS 3.1 mg/dL (2.6-4.7); POTASSIUM,K 3.5 mmol/L (3.5-5.1); PROTEIN TOTAL,TP 5.6 g/dL (6.4-8.2)
[2023-06-28] MEDS: Sucralfate Suspension 1 GM/10 ML Cup PO SCH ×2 (13:28→19:07)
[2023-06-28] MEDS: levETIRAcetam 500 MG Tab PO SCH ×2 (14:59→21:19)
[2023-06-29] MEDS: Sucralfate Suspension 1 GM/10 ML Cup PO SCH ×4 (00:33→18:35)
[2023-06-29] MEDS: Pantoprazole 40 MG in Sodium Chloride 0.9% 10 ML IVPUSH SCH ×2 (00:33→12:19)
[2023-06-29] MEDS: Sodium Chloride 0.9% 1,000 ML IV SCH ×2 (05:53→15:48)
[2023-06-29 06:06] LABS: BASOPHILS ABSOLUTE AUTO 0.04 K/uL (0.00-0.20); BASOPHILS PERCENT AUTO 0.8 % (0.0-1.0); EOSINOPHILS ABSOLUTE AUTO 0.04 K/uL (0.00-0.45); EOSINOPHILS PERCENT AUTO 0.8 % (0.0-6.0); HEMATOCRIT 32.2 % (42.0-52.0); HEMOGLOBIN 10.9 g/dL (14.0-18.0); IMMATURE GRAN ABSOLUTE AUTO 0.03 K/uL (0.00-0.05); IMMATURE GRAN PERCENT AUTO 0.6 % (0.0-0.4); LYMPHOCYTES ABSOLUTE AUTO 1.25 K/uL (1.00-4.80); LYMPHOCYTES PERCENT AUTO 24.5 % (24.0-44.0); MEAN CORPUSCULAR HEMOGLOBIN 33.7 pg (28.0-32.0); MEAN CORPUSCULAR HGB CONC 33.9 g/dL (32.0-36.0); MEAN CORPUSCULAR VOLUME 99.7 fL (83.0-99.0); MEAN PLATELET VOLUME 10.4 fL (9.4-12.4); MONOCYTES ABSOLUTE AUTO 0.41 K/uL (0.00-0.80); NEUTROPHILS ABSOLUTE AUTO 3.34 K/uL (1.80-7.70); NEUTROPHILS PERCENT AUTO 65.3 % (41.0-71.0); PLATELET COUNT,PLT 94 K/uL (150-400); RED BLOOD CELL COUNT 3.23 M/uL (4.52-5.90); WHITE BLOOD CELL COUNT,WBC 5.11 K/uL (3.9-11.3)
[2023-06-29 06:51] LABS: ALBUMIN 2.7 g/dL (3.4-5.0); BILIRUBIN TOTAL 3.1 mg/dL (0.2-1.0); CALCIUM 8.1 mg/dL (8.5-10.1); CREATININE 0.7 mg/dL (0.8-1.3); EST CRCL DRUG DOSING (CG) 110.17 mL/min; MAGNESIUM 1.8 mg/dL (1.8-2.4); PHOSPHORUS 2.9 mg/dL (2.6-4.7); POTASSIUM,K 3.2 mmol/L (3.5-5.1); PROTEIN TOTAL,TP 5.4 g/dL (6.4-8.2)
[2023-06-29] MEDS ORDERED: Potassium Chloride 20 MEQ Tab.ER PO ONE (07:45)
[2023-06-29] MEDS: Lisinopril/Hydrochlorothiazide 10-12.5 MG Tab PO SCH (08:00)
[2023-06-29] MEDS: Folic Acid 1 MG/0.2 ML UD Syringe IV SCH (08:00)
[2023-06-29] MEDS: Thiamine 200 MG/2 ML MDV IVPUSH SCH (08:00)
[2023-06-29] MEDS: levETIRAcetam 500 MG Tab PO SCH ×2 (08:00→20:40)
[2023-06-29] MEDS ORDERED: Diazepam 5 MG Tab PO SCH (09:00)
[2023-06-29] MEDS: Enoxaparin 40 MG/0.4 ML Syringe SUBCUT SCH (10:57)
[2023-06-29] MEDS ORDERED: Ondansetron 4 MG/2 ML SDV IVPUSH ONE (11:15)
[2023-06-30] MEDS: Pantoprazole 40 MG in Sodium Chloride 0.9% 10 ML IVPUSH SCH ×2 (00:44→12:13)
[2023-06-30] MEDS: Sucralfate Suspension 1 GM/10 ML Cup PO SCH ×3 (00:44→12:14)
[2023-06-30] MEDS: Sodium Chloride 0.9% 1,000 ML IV SCH ×2 (00:50→08:59)
[2023-06-30 06:06] LABS: BASOPHILS ABSOLUTE AUTO 0.03 K/uL (0.00-0.20); BASOPHILS PERCENT AUTO 0.7 % (0.0-1.0); EOSINOPHILS ABSOLUTE AUTO 0.06 K/uL (0.00-0.45); EOSINOPHILS PERCENT AUTO 1.3 % (0.0-6.0); HEMATOCRIT 34.1 % (42.0-52.0); HEMOGLOBIN 11.4 g/dL (14.0-18.0); IMMATURE GRAN ABSOLUTE AUTO 0.02 K/uL (0.00-0.05); IMMATURE GRAN PERCENT AUTO 0.4 % (0.0-0.4); LYMPHOCYTES ABSOLUTE AUTO 1.34 K/uL (1.00-4.80); LYMPHOCYTES PERCENT AUTO 29.4 % (24.0-44.0); MEAN CORPUSCULAR HEMOGLOBIN 33.3 pg (28.0-32.0); MEAN CORPUSCULAR HGB CONC 33.4 g/dL (32.0-36.0); MEAN CORPUSCULAR VOLUME 99.7 fL (83.0-99.0); MEAN PLATELET VOLUME 9.8 fL (9.4-12.4); MONOCYTES ABSOLUTE AUTO 0.41 K/uL (0.00-0.80); NEUTROPHILS PERCENT AUTO 59.2 % (41.0-71.0); PLATELET COUNT,PLT 110 K/uL (150-400); RED BLOOD CELL COUNT 3.42 M/uL (4.52-5.90); WHITE BLOOD CELL COUNT,WBC 4.56 K/uL (3.9-11.3)
[2023-06-30 06:27] LABS: A/G RATIO 0.9 (0.9-1.6); ALBUMIN 2.6 g/dL (3.4-5.0); BILIRUBIN TOTAL 1.6 mg/dL (0.2-1.0); CALCIUM 8.1 mg/dL (8.5-10.1); CARBON DIOXIDE,CO2 28.8 mmol/L (21.0-32.0); CREATININE 0.8 mg/dL (0.8-1.3); EST CRCL DRUG DOSING (CG) 96.4 mL/min; MAGNESIUM 1.8 mg/dL (1.8-2.4); PHOSPHORUS 2.9 mg/dL (2.6-4.7); POTASSIUM,K 3.2 mmol/L (3.5-5.1); PROTEIN TOTAL,TP 5.4 g/dL (6.4-8.2)
[2023-06-30] MEDS ORDERED: Potassium Chloride 20 MEQ Tab.ER PO ONE (07:22)
[2023-06-30] MEDS ORDERED: Potassium Chloride 20 MEQ Tab.ER ONE (08:55)
[2023-06-30] MEDS: levETIRAcetam 500 MG Tab PO SCH (09:19)
[2023-06-30] MEDS: Thiamine 200 MG/2 ML MDV IVPUSH SCH (09:19)
[2023-06-30] MEDS: Lisinopril/Hydrochlorothiazide 10-12.5 MG Tab PO SCH (09:19)
[2023-06-30] MEDS: Folic Acid 1 MG/0.2 ML UD Syringe IV SCH (09:19)
[2023-06-30] MEDS: Enoxaparin 40 MG/0.4 ML Syringe SUBCUT SCH (12:13)
[2023-06-30 15:10] VITALS: BP 120/74; PULSE 84
== END 2023-06-30 12:50 | disposition home or self-care (01) | DRG 897 ==
LOC: MW.ED 17:49 → MW.MS 06-28 07:25
PROVIDERS: ADMIT Family Medicine; ATTEND Family Medicine
DX: F10.139 Alcohol abuse with withdrawal, unspecified (principal); K29.20 Alcoholic gastritis without bleeding; I10 Essential (primary) hypertension; F10.131 Alcohol abuse with withdrawal delirium; K21.9 Gastro-esophageal reflux disease without esophagitis; F41.9 Anxiety disorder, unspecified; Z98.890 Other specified postprocedural states; Z87.891 Personal history of nicotine dependence; Z88.5 Allergy status to narcotic agent; Z88.8 Allergy status to other drugs, medicaments and biological substances; Z87.11 Personal history of peptic ulcer disease
CPT/HCPCS: 36415; 74177; 74177-26; 76705; 76705-26; 80053; 82947; 83690; 83735; 84100; 85025; 96361; 96374; 96375; 96376; 99285; 99285-25; A9270-GY; C9113; J1650; J2405; J2765; J3360; J3411; J3490; J7030; Q9967

== ENCOUNTER 2023-08-12 08:47 | Inpatient (IN) | payer SELFPAY ==
[2023-08-12 09:12] LABS: BASOPHILS ABSOLUTE AUTO 0.02 K/uL (0.00-0.20); BASOPHILS PERCENT AUTO 0.3 % (0.0-1.0); EOSINOPHILS ABSOLUTE AUTO 0.07 K/uL (0.00-0.45); EOSINOPHILS PERCENT AUTO 0.9 % (0.0-6.0); HEMATOCRIT 33.6 % (42.0-52.0); HEMOGLOBIN 12.5 g/dL (14.0-18.0); IMMATURE GRAN PERCENT AUTO 1.3 % (0.0-0.4); LYMPHOCYTES ABSOLUTE AUTO 0.87 K/uL (1.00-4.80); LYMPHOCYTES PERCENT AUTO 11.3 % (24.0-44.0); MEAN CORPUSCULAR HEMOGLOBIN 33.9 pg (28.0-32.0); MEAN CORPUSCULAR HGB CONC 37.2 g/dL (32.0-36.0); MEAN CORPUSCULAR VOLUME 91.1 fL (83.0-99.0); MONOCYTES ABSOLUTE AUTO 0.62 K/uL (0.00-0.80); NEUTROPHILS ABSOLUTE AUTO 6.03 K/uL (1.80-7.70); NEUTROPHILS PERCENT AUTO 78.2 % (41.0-71.0); PLATELET COUNT,PLT 138 K/uL (150-400); RED BLOOD CELL COUNT 3.69 M/uL (4.52-5.90); WHITE BLOOD CELL COUNT,WBC 7.71 K/uL (3.9-11.3)
[2023-08-12 09:18] LABS: INR 1.39 (0.86-1.11); PTT,PARTIAL THROMBOPLSTIN TIME 26.8 SEC (23.9-30.7)
[2023-08-12] MEDS: Sodium Chloride 0.9% 1,000 ML IV ONE (09:20)
[2023-08-12 09:24] LABS: BASE EXCESS VENOUS 0.4 (-2.0-3.0); PH,VENOUS 7.48 (7.31-7.41)
[2023-08-12] MEDS: Pantoprazole 80 MG in Sodium Chloride 0.9% 10 ML IVPUSH ONE (09:24)
[2023-08-12] MEDS: Ondansetron 4 MG/2 ML SDV IVPUSH ONE (09:27)
[2023-08-12] MEDS: Sodium Chloride 0.9% 10 ML Syringe FLUSH PRN (09:29)
[2023-08-12] MEDS: Sodium Chloride 0.9% 2.5 ML Syringe FLUSH PRN (09:29)
[2023-08-12 09:35] LABS: ALBUMIN 3.3 g/dL (3.4-5.0); CARBON DIOXIDE,CO2 20.6 mmol/L (21.0-32.0); CREATININE 1.2 mg/dL (0.8-1.3); EST CRCL DRUG DOSING (CG) 62.03 mL/min; POTASSIUM,K 3.4 mmol/L (3.5-5.1); PROTEIN TOTAL,TP 6.6 g/dL (6.4-8.2); TSH ULTRASENSITIVE 2.45 uIU/mL (0.36-3.74)
[2023-08-12] MEDS: Iopamidol 755 MG/ML 500 ML Multipack Bottle IVPUSH STA (10:02)
[2023-08-12 10:04] LABS: CORONAVIRUS COVID-19 NAA NEGATIVE (NEGATIVE); INFLUENZA A NAA NEGATIVE (NEGATIVE); INFLUENZA B NAA NEGATIVE (NEGATIVE); RESPIRATORY SYNCYTIAL VIR NAA NEGATIVE (NEGATIVE)
[2023-08-12] MEDS ORDERED: Dextrose 5%-Lact Ringers w/KCl 1,000 ML IV SCH (11:00)
[2023-08-12] MEDS: Lactated Ringers 1,000 ML IV ONE (11:35)
[2023-08-12] MEDS ORDERED: Thiamine 100 MG in Sodium Chloride 0.9% 100 ML IV ONE (13:06)
[2023-08-12] MEDS: Thiamine 200 MG/2 ML MDV IVPUSH ONE (13:21)
[2023-08-12] MEDS: LORazepam 2 MG/ML SDV IVPUSH PRN (13:22)
[2023-08-12 14:04] LABS: CALCIUM 7.9 mg/dL (8.5-10.1); CARBON DIOXIDE,CO2 25.2 mmol/L (21.0-32.0); CREATININE 1.2 mg/dL (0.8-1.3); EST CRCL DRUG DOSING (CG) 62.03 mL/min; POTASSIUM,K 2.9 mmol/L (3.5-5.1)
[2023-08-12] MEDS ORDERED: Thiamine 100 MG in Sodium Chloride 0.9% 100 ML IV SCH (14:15)
[2023-08-12] MEDS: Folic Acid 1 MG/0.2 ML UD Syringe SUBCUT SCH (14:33)
[2023-08-12] MEDS: Potassium Chloride 20 MEQ Tab.ER PO ONE (14:33)
[2023-08-12] MEDS: NS with KCl 40mEq 1,000 ML IV SCH (14:33)
[2023-08-12] MEDS: Sucralfate Suspension 1 GM/10 ML Cup PO SCH (17:12)
[2023-08-12 18:02] LABS: APPEARANCE,URINE CLEAR; GLUCOSE,URINE NEGATIVE (NEGATIVE); KETONES,URINE TRACE mg/dL (NEGATIVE); LEUKOCYTE ESTERASE,URINE NEGATIVE (NEGATIVE); NITRITE,URINE POSITIVE (NEGATIVE); OCCULT BLOOD,URINE NEGATIVE (NEGATIVE); PH,URINE 6.5 (5.0-8.0); PROTEIN,URINE NEGATIVE (NEGATIVE)
[2023-08-12 18:06] LABS: CREATININE,URINE RAND 53.1 mg/dL
[2023-08-12 18:09] LABS: AMPHETAMINES SCREEN, URINE NEGATIVE (CUTOFF=500); BARBITURATE SCREEN,URINE NEGATIVE (CUTOFF=200); BENZODIAZEPINES SCREEN,URINE PRESUMPTIVE POSITIVE (CUTOFF=150); BILIRUBIN,URINE SMALL (NEGATIVE); BUPRENORPHINE SCREEN,URINE NEGATIVE (CUTOFF=10); COLOR,URINE DARK YELLOW; METHADONE SCREEN, URINE NEGATIVE (CUTOFF=200); METHAMPHETAMINES SCREEN, URINE NEGATIVE (CUTOFF=500); OXYCODONE SCREEN,URINE NEGATIVE (CUT0FF=100); PCP SCREEN,URINE NEGATIVE (CUTOFF=25); THC SCREEN,URINE 20 NG/ML NEGATIVE (CUTOFF=50)
[2023-08-12 18:10] LABS: BACTERIA,URINE RARE (NEGATIVE); EPITHELIAL CELLS,URINE RARE (NONE-FEW); RBC,URINE 0-1 (0-2/HPF); WBC,URINE 0-1 (0-5/HPF)
[2023-08-12 18:21] LABS: SODIUM,URINE RANDOM < 5.0 mmol/L (40.0-220.0)
[2023-08-12 18:39] LABS: CALCIUM 8.2 mg/dL (8.5-10.1); CARBON DIOXIDE,CO2 23.3 mmol/L (21.0-32.0); CREATININE 1.2 mg/dL (0.8-1.3); EST CRCL DRUG DOSING (CG) 62.03 mL/min; POTASSIUM,K 3.5 mmol/L (3.5-5.1)
[2023-08-12] MEDS: Pantoprazole 40 MG in Sodium Chloride 0.9% 10 ML IVPUSH SCH (20:19)
[2023-08-12] MEDS: levETIRAcetam 500 MG Tab PO SCH (20:19)
[2023-08-12] MEDS: Diazepam 5 MG Tab PO SCH (21:00)
[2023-08-12 22:40] LABS: CALCIUM 8.1 mg/dL (8.5-10.1); CARBON DIOXIDE,CO2 24.8 mmol/L (21.0-32.0); CREATININE 1.1 mg/dL (0.8-1.3); EST CRCL DRUG DOSING (CG) 67.67 mL/min; POTASSIUM,K 3.8 mmol/L (3.5-5.1)
[2023-08-12] MEDS: Dextrose 5% in Water 1,000 ML IV SCH (23:21)
[2023-08-13 04:26] LABS: BASOPHILS ABSOLUTE AUTO 0.02 K/uL (0.00-0.20); BASOPHILS PERCENT AUTO 0.6 % (0.0-1.0); EOSINOPHILS ABSOLUTE AUTO 0.03 K/uL (0.00-0.45); IMMATURE GRAN ABSOLUTE AUTO 0.04 K/uL (0.00-0.05); IMMATURE GRAN PERCENT AUTO 1.3 % (0.0-0.4); LYMPHOCYTES ABSOLUTE AUTO 0.61 K/uL (1.00-4.80); LYMPHOCYTES PERCENT AUTO 19.5 % (24.0-44.0); MEAN CORPUSCULAR HEMOGLOBIN 33.1 pg (28.0-32.0); MEAN CORPUSCULAR HGB CONC 34.5 g/dL (32.0-36.0); MEAN PLATELET VOLUME 9.8 fL (9.4-12.4); MONOCYTES ABSOLUTE AUTO 0.26 K/uL (0.00-0.80); MONOCYTES PERCENT AUTO 8.3 % (0.0-8.0); NEUTROPHILS ABSOLUTE AUTO 2.17 K/uL (1.80-7.70); NEUTROPHILS PERCENT AUTO 69.3 % (41.0-71.0); PLATELET COUNT,PLT 115 K/uL (150-400); RED BLOOD CELL COUNT 3.02 M/uL (4.52-5.90); WHITE BLOOD CELL COUNT,WBC 3.13 K/uL (3.9-11.3)
[2023-08-13 04:41] LABS: INR 1.38 (0.86-1.11)
[2023-08-13 04:51] LABS: A/G RATIO 0.9 (0.9-1.6); ALBUMIN 2.2 g/dL (3.4-5.0); BILIRUBIN TOTAL 3.9 mg/dL (0.2-1.0); CALCIUM 8.1 mg/dL (8.5-10.1); CARBON DIOXIDE,CO2 25.9 mmol/L (21.0-32.0); CREATININE 1.1 mg/dL (0.8-1.3); EST CRCL DRUG DOSING (CG) 67.67 mL/min; MAGNESIUM 2.1 mg/dL (1.8-2.4); PHOSPHORUS 1.7 mg/dL (2.6-4.7); POTASSIUM,K 3.4 mmol/L (3.5-5.1); PROTEIN TOTAL,TP 4.7 g/dL (6.4-8.2)
[2023-08-13] MEDS ORDERED: Sodium Chloride 0.9% 250 ML IV SCH (06:00)
[2023-08-13] MEDS: Potassium Chloride 100 ML IV SCH (06:10)
[2023-08-13] MEDS ORDERED: Sodium Chloride 0.9% 10 ML Syringe FLUSH PRN (08:25)
[2023-08-13] MEDS ORDERED: Sodium Chloride 0.9% 2.5 ML Syringe FLUSH PRN (08:25)
[2023-08-13] MEDS: Phosphorus #1 250 MG Tab PO SCH (09:43)
[2023-08-13] MEDS: Thiamine 200 MG/2 ML MDV IVPUSH SCH (09:44)
[2023-08-13] MEDS: Diazepam 5 MG Tab PO SCH (14:03)
[2023-08-13] MEDS: Sodium Chloride 0.45% 1,000 ML IV SCH (14:03)
[2023-08-14 05:39] LABS: BASOPHILS ABSOLUTE AUTO 0.03 K/uL (0.00-0.20); BASOPHILS PERCENT AUTO 1.2 % (0.0-1.0); EOSINOPHILS ABSOLUTE AUTO 0.02 K/uL (0.00-0.45); EOSINOPHILS PERCENT AUTO 0.8 % (0.0-6.0); HEMATOCRIT 30.2 % (42.0-52.0); HEMOGLOBIN 10.2 g/dL (14.0-18.0); IMMATURE GRAN ABSOLUTE AUTO 0.04 K/uL (0.00-0.05); IMMATURE GRAN PERCENT AUTO 1.6 % (0.0-0.4); LYMPHOCYTES ABSOLUTE AUTO 0.84 K/uL (1.00-4.80); LYMPHOCYTES PERCENT AUTO 33.7 % (24.0-44.0); MEAN CORPUSCULAR HEMOGLOBIN 33.7 pg (28.0-32.0); MEAN CORPUSCULAR HGB CONC 33.8 g/dL (32.0-36.0); MEAN CORPUSCULAR VOLUME 99.7 fL (83.0-99.0); MEAN PLATELET VOLUME 10.1 fL (9.4-12.4); NEUTROPHILS ABSOLUTE AUTO 1.36 K/uL (1.80-7.70); NEUTROPHILS PERCENT AUTO 54.7 % (41.0-71.0); PLATELET COUNT,PLT 118 K/uL (150-400); RED BLOOD CELL COUNT 3.03 M/uL (4.52-5.90); WHITE BLOOD CELL COUNT,WBC 2.49 K/uL (3.9-11.3)
[2023-08-14 05:52] LABS: INR 1.18 (0.86-1.11)
[2023-08-14 06:04] LABS: A/G RATIO 0.8 (0.9-1.6); ALBUMIN 2.1 g/dL (3.4-5.0); BILIRUBIN TOTAL 3.3 mg/dL (0.2-1.0); CARBON DIOXIDE,CO2 25.7 mmol/L (21.0-32.0); CREATININE 1.1 mg/dL (0.8-1.3); EST CRCL DRUG DOSING (CG) 66.82 mL/min; MAGNESIUM 1.9 mg/dL (1.8-2.4); PHOSPHORUS 1.9 mg/dL (2.6-4.7); POTASSIUM,K 3.4 mmol/L (3.5-5.1); PROTEIN TOTAL,TP 4.7 g/dL (6.4-8.2)
[2023-08-14] MEDS: Potassium Chloride 20 MEQ Tab.ER PO ONE (08:45)
[2023-08-14] MEDS: oxyCODONE 5 MG Tab PO PRN (09:20)
[2023-08-14] MEDS: Diazepam 5 MG Tab PO SCH (20:14)
[2023-08-15] MEDS: Ondansetron 4 MG/2 ML SDV IVPUSH PRN (00:31)
[2023-08-15 06:14] LABS: BASOPHILS ABSOLUTE AUTO 0.04 K/uL (0.00-0.20); BASOPHILS PERCENT AUTO 1.6 % (0.0-1.0); EOSINOPHILS ABSOLUTE AUTO 0.03 K/uL (0.00-0.45); EOSINOPHILS PERCENT AUTO 1.2 % (0.0-6.0); HEMOGLOBIN 9.9 g/dL (14.0-18.0); IMMATURE GRAN ABSOLUTE AUTO 0.05 K/uL (0.00-0.05); LYMPHOCYTES ABSOLUTE AUTO 0.96 K/uL (1.00-4.80); LYMPHOCYTES PERCENT AUTO 38.1 % (24.0-44.0); MEAN CORPUSCULAR HEMOGLOBIN 34.1 pg (28.0-32.0); MEAN CORPUSCULAR VOLUME 103.4 fL (83.0-99.0); MEAN PLATELET VOLUME 10.2 fL (9.4-12.4); MONOCYTES ABSOLUTE AUTO 0.36 K/uL (0.00-0.80); MONOCYTES PERCENT AUTO 14.3 % (0.0-8.0); NEUTROPHILS ABSOLUTE AUTO 1.08 K/uL (1.80-7.70); NEUTROPHILS PERCENT AUTO 42.8 % (41.0-71.0); NRBC ABSOLUTE 0.03 K/uL (0.00-0.02); NRBC PERCENT 1.2 /100WBC (0.0-0.2); PLATELET COUNT,PLT 127 K/uL (150-400); WHITE BLOOD CELL COUNT,WBC 2.52 K/uL (3.9-11.3)
[2023-08-15 06:27] LABS: INR 1.09 (0.86-1.11)
[2023-08-15 06:38] LABS: A/G RATIO 0.8 (0.9-1.6); ALBUMIN 2.1 g/dL (3.4-5.0); BILIRUBIN TOTAL 2.6 mg/dL (0.2-1.0); CALCIUM 7.8 mg/dL (8.5-10.1); CREATININE 1.2 mg/dL (0.8-1.3); EST CRCL DRUG DOSING (CG) 62.03 mL/min; MAGNESIUM 1.6 mg/dL (1.8-2.4); PHOSPHORUS 2.8 mg/dL (2.6-4.7); POTASSIUM,K 3.2 mmol/L (3.5-5.1); PROTEIN TOTAL,TP 4.8 g/dL (6.4-8.2)
[2023-08-15] MEDS: Magnesium Sulfate/Water 2 GM in Premix Bag 1 BAG IV ONE (08:10)
[2023-08-15] MEDS: Potassium Chloride 20 MEQ Tab.ER PO ONE (08:22)
[2023-08-15] MEDS ORDERED: Thiamine 200 MG/2 ML MDV IVPUSH SCH (10:46)
[2023-08-15] MEDS: Cholecalciferol (Vitamin D3) 25 MCG Tab PO SCH (11:28)
[2023-08-15] MEDS: Cyanocobalamin (Vitamin B12) 500 MCG Tab PO SCH (11:29)
[2023-08-15] MEDS: Topiramate 50 MG Tab PO SCH (11:30)
[2023-08-15 12:07] LABS: HBSAG SCREEN Negative (Negative); HCV AB Non Reactive (Non Reactive); HEP A AB, IGM Negative (Negative); HEP B CORE AB, IGM Negative (Negative)
[2023-08-15] MEDS: Vitamin B6-pyridOXINE 50 MG Tab PO SCH (13:22)
[2023-08-15] MEDS: Thiamine 500 MG in Sodium Chloride 0.9% 100 ML IV SCH ×2 (15:09→22:53)
[2023-08-15] MEDS: QUEtiapine 25 MG Tab PO SCH (22:33)
[2023-08-15] MEDS: fluvoxaMINE 50 MG Tab PO SCH (22:35)
[2023-08-16 06:04] LABS: BASOPHILS ABSOLUTE AUTO 0.04 K/uL (0.00-0.20); BASOPHILS PERCENT AUTO 1.4 % (0.0-1.0); EOSINOPHILS ABSOLUTE AUTO 0.04 K/uL (0.00-0.45); EOSINOPHILS PERCENT AUTO 1.4 % (0.0-6.0); HEMATOCRIT 29.8 % (42.0-52.0); HEMOGLOBIN 9.7 g/dL (14.0-18.0); IMMATURE GRAN ABSOLUTE AUTO 0.07 K/uL (0.00-0.05); IMMATURE GRAN PERCENT AUTO 2.4 % (0.0-0.4); LYMPHOCYTES ABSOLUTE AUTO 1.07 K/uL (1.00-4.80); LYMPHOCYTES PERCENT AUTO 37.3 % (24.0-44.0); MEAN CORPUSCULAR HGB CONC 32.6 g/dL (32.0-36.0); MEAN CORPUSCULAR VOLUME 104.6 fL (83.0-99.0); MEAN PLATELET VOLUME 9.7 fL (9.4-12.4); MONOCYTES ABSOLUTE AUTO 0.46 K/uL (0.00-0.80); NEUTROPHILS ABSOLUTE AUTO 1.19 K/uL (1.80-7.70); NEUTROPHILS PERCENT AUTO 41.5 % (41.0-71.0); NRBC ABSOLUTE 0.03 K/uL (0.00-0.02); PLATELET COUNT,PLT 140 K/uL (150-400); RED BLOOD CELL COUNT 2.85 M/uL (4.52-5.90); WHITE BLOOD CELL COUNT,WBC 2.87 K/uL (3.9-11.3)
[2023-08-16 06:34] LABS: A/G RATIO 0.7 (0.9-1.6); ALBUMIN 1.9 g/dL (3.4-5.0); BILIRUBIN TOTAL 1.8 mg/dL (0.2-1.0); CALCIUM 7.9 mg/dL (8.5-10.1); CARBON DIOXIDE,CO2 26.6 mmol/L (21.0-32.0); EST CRCL DRUG DOSING (CG) 74.43 mL/min; MAGNESIUM 1.9 mg/dL (1.8-2.4); PHOSPHORUS 3.5 mg/dL (2.6-4.7); POTASSIUM,K 3.8 mmol/L (3.5-5.1); PROTEIN TOTAL,TP 4.6 g/dL (6.4-8.2)
[2023-08-17 06:04] LABS: BASOPHILS ABSOLUTE AUTO 0.05 K/uL (0.00-0.20); BASOPHILS PERCENT AUTO 1.7 % (0.0-1.0); EOSINOPHILS ABSOLUTE AUTO 0.07 K/uL (0.00-0.45); EOSINOPHILS PERCENT AUTO 2.4 % (0.0-6.0); HEMATOCRIT 31.3 % (42.0-52.0); IMMATURE GRAN ABSOLUTE AUTO 0.06 K/uL (0.00-0.05); IMMATURE GRAN PERCENT AUTO 2.1 % (0.0-0.4); LYMPHOCYTES ABSOLUTE AUTO 1.11 K/uL (1.00-4.80); LYMPHOCYTES PERCENT AUTO 38.1 % (24.0-44.0); MEAN CORPUSCULAR HEMOGLOBIN 33.4 pg (28.0-32.0); MEAN CORPUSCULAR HGB CONC 31.9 g/dL (32.0-36.0); MEAN CORPUSCULAR VOLUME 104.7 fL (83.0-99.0); MEAN PLATELET VOLUME 9.5 fL (9.4-12.4); MONOCYTES ABSOLUTE AUTO 0.58 K/uL (0.00-0.80); MONOCYTES PERCENT AUTO 19.9 % (0.0-8.0); NEUTROPHILS ABSOLUTE AUTO 1.04 K/uL (1.80-7.70); NEUTROPHILS PERCENT AUTO 35.8 % (41.0-71.0); PLATELET COUNT,PLT 179 K/uL (150-400); RED BLOOD CELL COUNT 2.99 M/uL (4.52-5.90); WHITE BLOOD CELL COUNT,WBC 2.91 K/uL (3.9-11.3)
[2023-08-17 06:36] LABS: A/G RATIO 0.7 (0.9-1.6); ALBUMIN 1.9 g/dL (3.4-5.0); BILIRUBIN TOTAL 1.5 mg/dL (0.2-1.0); CALCIUM 8.4 mg/dL (8.5-10.1); CARBON DIOXIDE,CO2 26.2 mmol/L (21.0-32.0); CREATININE 0.9 mg/dL (0.8-1.3); EST CRCL DRUG DOSING (CG) 82.7 mL/min; PHOSPHORUS 3.7 mg/dL (2.6-4.7); PROTEIN TOTAL,TP 4.7 g/dL (6.4-8.2)
[2023-08-17] MEDS: Sennosides/Docusate Sodium 50-8.6 MG Tab PO SCH (10:22)
[2023-08-17] MEDS: Diazepam 5 MG Tab PO SCH (10:27)
[2023-08-17] MEDS: Pantoprazole 40 MG Tab.CR PO SCH (18:26)
[2023-08-17] MEDS: QUEtiapine 25 MG Tab PO SCH (20:55)
[2023-08-18 06:04] LABS: HEMATOCRIT 32.6 % (42.0-52.0); HEMOGLOBIN 10.4 g/dL (14.0-18.0); MEAN CORPUSCULAR HEMOGLOBIN 33.1 pg (28.0-32.0); MEAN CORPUSCULAR HGB CONC 31.9 g/dL (32.0-36.0); MEAN CORPUSCULAR VOLUME 103.8 fL (83.0-99.0); MEAN PLATELET VOLUME 9.3 fL (9.4-12.4); PLATELET COUNT,PLT 216 K/uL (150-400); RED BLOOD CELL COUNT 3.14 M/uL (4.52-5.90); WHITE BLOOD CELL COUNT,WBC 2.91 K/uL (3.9-11.3)
[2023-08-18 06:37] LABS: A/G RATIO 0.7 (0.9-1.6); BILIRUBIN TOTAL 1.3 mg/dL (0.2-1.0); CALCIUM 8.2 mg/dL (8.5-10.1); CARBON DIOXIDE,CO2 25.6 mmol/L (21.0-32.0); EST CRCL DRUG DOSING (CG) 74.43 mL/min; PHOSPHORUS 3.5 mg/dL (2.6-4.7); POTASSIUM,K 3.8 mmol/L (3.5-5.1); PROTEIN TOTAL,TP 4.7 g/dL (6.4-8.2)
[2023-08-18 06:44] LABS: BASOPHILS ABSOLUTE MAN 0.03 K/uL (0.00-0.20); BASOPHILS PERCENT MAN 1 % (0-1); EOSINOPHILS ABSOLUTE MAN 0.06 K/uL (0.00-0.45); EOSINOPHILS PERCENT MAN 2 % (0-6); LYMPHOCYTES ABSOLUTE MAN 1.25 K/uL (1.00-4.80); LYMPHOCYTES PERCENT MAN 43 % (24-44); MONOCYTES PERCENT MAN 24 % (0-8); SEG NEUTROPHILS ABSOLUTE MAN 0.87 K/uL (1.80-7.70); SEG NEUTROPHILS PERCENT MAN 30 % (41-71)
[2023-08-18] MEDS: Thiamine 250 MG in Sodium Chloride 0.9% 100 ML IV SCH (09:53)
[2023-08-18] MEDS: Thiamine 200 MG/2 ML MDV IM SCH (12:33)
[2023-08-19] MEDS: Acetaminophen 325 MG Tab PO PRN (06:49)
[2023-08-19] MEDS: Ondansetron 4 MG Tab.DIS PO PRN (11:33)
[2023-08-20] MEDS: Furosemide 20 MG Tab PO ONE (10:40)
[2023-08-20 10:44] VITALS: BP 136/84; PULSE 103
== END 2023-08-20 11:00 | disposition home or self-care (01) | DRG 433 ==
LOC: MW.ED 08:47 → MW.ICU 11:23 → MW.MS 08-14 06:44
PROVIDERS: ADMIT Internal Medicine; ATTEND Internal Medicine
DX: K70.10 Alcoholic hepatitis without ascites (principal); E87.1 Hypo-osmolality and hyponatremia; F10.221 Alcohol dependence with intoxication delirium; F10.231 Alcohol dependence with withdrawal delirium; F10.232 Alcohol dependence with withdrawal with perceptual disturbance; K29.20 Alcoholic gastritis without bleeding; I10 Essential (primary) hypertension; K21.9 Gastro-esophageal reflux disease without esophagitis; G40.909 Epilepsy, unspecified, not intractable, without status epilepticus; F41.9 Anxiety disorder, unspecified; D64.9 Anemia, unspecified; E87.8 Other disorders of electrolyte and fluid balance, not elsewhere classified; E87.6 Hypokalemia; F42.2 Mixed obsessional thoughts and acts; G47.00 Insomnia, unspecified; F32.9 Major depressive disorder, single episode, unspecified; F42.9 Obsessive-compulsive disorder, unspecified; F29 Unspecified psychosis not due to a substance or known physiological condition; R74.01 Elevation of levels of liver transaminase levels; R27.0 Ataxia, unspecified; Z88.4 Allergy status to anesthetic agent; Z88.5 Allergy status to narcotic agent; Z79.899 Other long term (current) drug therapy; Z11.52 Encounter for screening for COVID-19; Z87.11 Personal history of peptic ulcer disease
CPT/HCPCS: 0241U; 36415; 71045; 71045-26; 74177; 74177-26; 76705; 76705-26; 80048; 80053; 80074; 80305-QW; 80307; 81001; 82570; 82803; 82947; 83690; 83735; 84100; 84295; 84300; 84443; 84484; 85025; 85610; 85730; 93005; 93010; 96361; 96374; 96375; 96376; 97110-GP; 97163-GP; 97530-GP; 99284; 99285-25; A9270-GY; C9113; J2060; J2405; J3360; J3411; J3475; J3480; J3490; J7030; J7060; J7120; Q9967

== ENCOUNTER 2023-09-25 06:50 | Emergency (ER) | payer MEDICAID ==
[2023-09-25] MEDS: Sodium Chloride 0.9% 1,000 ML IV ONE (07:28)
[2023-09-25] MEDS: Metoclopramide 10 MG/2 ML SDV IVPUSH ONE (07:38)
[2023-09-25] MEDS: diphenhydrAMINE 50 MG/ML SDV IVPUSH ONE (07:38)
[2023-09-25 07:40] LABS: BASOPHILS ABSOLUTE AUTO 0.06 K/uL (0.00-0.20); BASOPHILS PERCENT AUTO 1.4 % (0.0-1.0); EOSINOPHILS ABSOLUTE AUTO 0.05 K/uL (0.00-0.45); EOSINOPHILS PERCENT AUTO 1.1 % (0.0-6.0); HEMATOCRIT 34.9 % (42.0-52.0); HEMOGLOBIN 11.3 g/dL (14.0-18.0); IMMATURE GRAN ABSOLUTE AUTO 0.01 K/uL (0.00-0.05); IMMATURE GRAN PERCENT AUTO 0.2 % (0.0-0.4); LYMPHOCYTES ABSOLUTE AUTO 1.72 K/uL (1.00-4.80); LYMPHOCYTES PERCENT AUTO 39.4 % (24.0-44.0); MEAN CORPUSCULAR HGB CONC 32.4 g/dL (32.0-36.0); MEAN CORPUSCULAR VOLUME 98.9 fL (83.0-99.0); MEAN PLATELET VOLUME 10.6 fL (9.4-12.4); MONOCYTES ABSOLUTE AUTO 0.45 K/uL (0.00-0.80); MONOCYTES PERCENT AUTO 10.3 % (0.0-8.0); NEUTROPHILS ABSOLUTE AUTO 2.08 K/uL (1.80-7.70); NEUTROPHILS PERCENT AUTO 47.6 % (41.0-71.0); PLATELET COUNT,PLT 239 K/uL (150-400); RED BLOOD CELL COUNT 3.53 M/uL (4.52-5.90); WHITE BLOOD CELL COUNT,WBC 4.37 K/uL (3.9-11.3)
[2023-09-25 08:06] LABS: A/G RATIO 1.2 (0.9-1.6); ALANINE AMINOTRANSFERASE,ALT 19 IU/L (14-63); ALBUMIN 3.7 g/dL (3.4-5.0); ALKALINE PHOSPHATASE 82 U/L (46-116); ASPARTATE AMNIOTRANSFERASE,AST 20 IU/L (15-37); BILIRUBIN TOTAL 1.6 mg/dL (0.2-1.0); BLOOD UREA NITROGEN,BUN 7 mg/dL (7.0-18.0); CALCIUM 8.7 mg/dL (8.5-10.1); CARBON DIOXIDE,CO2 21.8 mmol/L (21.0-32.0); CHLORIDE,CL 105 mmol/L (98-107); EST CRCL DRUG DOSING (CG) 74.93 mL/min; ETHANOL BLOOD MEDICAL <3 mg/dL; GLUCOSE RANDOM 96 mg/dL (74-106); POTASSIUM,K 4.2 mmol/L (3.5-5.1); PROTEIN TOTAL,TP 6.7 g/dL (6.4-8.2); SODIUM,NA 139 mmol/L (136-148)
[2023-09-25 08:10] LABS: ESTIMATED GFR 88 mL/min (>60); INR 1.02 (0.86-1.11); PTT,PARTIAL THROMBOPLSTIN TIME 27.5 SEC (23.9-30.7)
[2023-09-25 08:36] VITALS: BP 122/77; PULSE 71
== END 2023-09-25 08:38 | disposition home or self-care (01) ==
LOC: MW.ED 06:50
DX: R51.9 Headache, unspecified (principal); I10 Essential (primary) hypertension; K21.9 Gastro-esophageal reflux disease without esophagitis; Z79.899 Other long term (current) drug therapy; Z88.7 Allergy status to serum and vaccine
CPT/HCPCS: 36415; 70450; 80053; 80307; 85025; 85610; 85730; 96361; 96374; 96375; 99284; J1200; J2765; J7030

== ENCOUNTER 2023-12-05 12:10 | Emergency (ER) | payer MEDICAID, OTHER ==
[2023-12-05] MEDS: Diazepam 2 MG Tab PO ONE (15:58)
[2023-12-05 16:14] LABS: BASOPHILS ABSOLUTE AUTO 0.06 K/uL (0.00-0.20); BASOPHILS PERCENT AUTO 1.5 % (0.0-1.0); EOSINOPHILS ABSOLUTE AUTO 0.03 K/uL (0.00-0.45); EOSINOPHILS PERCENT AUTO 0.7 % (0.0-6.0); HEMATOCRIT 38.2 % (42.0-52.0); IMMATURE GRAN ABSOLUTE AUTO 0.03 K/uL (0.00-0.05); IMMATURE GRAN PERCENT AUTO 0.7 % (0.0-0.4); LYMPHOCYTES PERCENT AUTO 34.7 % (24.0-44.0); MEAN CORPUSCULAR HEMOGLOBIN 34.5 pg (28.0-32.0); MEAN CORPUSCULAR VOLUME 101.3 fL (83.0-99.0); MEAN PLATELET VOLUME 10.1 fL (9.4-12.4); MONOCYTES ABSOLUTE AUTO 0.68 K/uL (0.00-0.80); MONOCYTES PERCENT AUTO 16.8 % (0.0-8.0); NEUTROPHILS ABSOLUTE AUTO 1.84 K/uL (1.80-7.70); NEUTROPHILS PERCENT AUTO 45.6 % (41.0-71.0); PLATELET COUNT,PLT 102 K/uL (150-400); RED BLOOD CELL COUNT 3.77 M/uL (4.52-5.90); WHITE BLOOD CELL COUNT,WBC 4.04 K/uL (3.9-11.3)
[2023-12-05 16:27] LABS: INR 1.01 (0.86-1.11)
[2023-12-05 16:57] LABS: A/G RATIO 0.9 (0.9-1.6); ALBUMIN 3.3 g/dL (3.4-5.0); BILIRUBIN TOTAL 1.8 mg/dL (0.2-1.0); CALCIUM 8.4 mg/dL (8.5-10.1); CARBON DIOXIDE,CO2 28.9 mmol/L (21.0-32.0); EST CRCL DRUG DOSING (CG) 78.43 mL/min; POTASSIUM,K 4.1 mmol/L (3.5-5.1); PROTEIN TOTAL,TP 6.9 g/dL (6.4-8.2)
[2023-12-05] MEDS: LORazepam 2 MG/ML SDV IVPUSH ONE (17:50)
[2023-12-05] MEDS: Ondansetron 4 MG/2 ML SDV IVPUSH ONE (17:56)
[2023-12-05] MEDS: PHENobarbital Sodium 130 MG/ML SDV IVPUSH ONE (18:39)
[2023-12-05 19:59] VITALS: BP 151/86; PULSE 102
== END 2023-12-05 19:59 ==
LOC: MW.ED 12:10
DX: S06.5X0A Traumatic subdural hemorrhage without loss of consciousness, initial encounter (principal); F10.930 Alcohol use, unspecified with withdrawal, uncomplicated; R29.6 Repeated falls; I10 Essential (primary) hypertension; K21.9 Gastro-esophageal reflux disease without esophagitis; Z79.899 Other long term (current) drug therapy; Z75.8 Other problems related to medical facilities and other health care; Z88.4 Allergy status to anesthetic agent
CPT/HCPCS: 36415; 70450; 71045; 80053; 84484; 85025; 85610; 93005; 96374; 96375; 99285; A9270; J2060; J2405; J2560

== ENCOUNTER 2024-01-06 09:47 | Emergency (ER) | payer MEDICAID ==
[2024-01-06 10:57] VITALS: PULSE 61
[2024-01-06 19:02] VITALS: BP 139/79
== END 2024-01-06 13:37 | disposition home or self-care (01) ==
LOC: MW.ED 09:47
DX: I62.03 Nontraumatic chronic subdural hemorrhage (principal); K21.9 Gastro-esophageal reflux disease without esophagitis; I10 Essential (primary) hypertension; Z75.8 Other problems related to medical facilities and other health care; Z88.4 Allergy status to anesthetic agent; Z79.899 Other long term (current) drug therapy
CPT/HCPCS: 70450; 70450-26; 99284

== ENCOUNTER 2024-02-28 12:49 | Inpatient (IN) | payer MEDICAID ==
[2024-02-28] MEDS ORDERED: Sodium Chloride 0.9% 2.5 ML Syringe FLUSH PRN (13:23)
[2024-02-28] MEDS ORDERED: Sodium Chloride 0.9% 20 ML SDV IV PRN (13:23)
[2024-02-28] MEDS ORDERED: Sodium Chloride 0.9% 10 ML Syringe FLUSH PRN (13:23)
[2024-02-28] MEDS: Sodium Chloride 0.9% 1,000 ML IV ONE ×3 (14:19→23:48)
[2024-02-28] MEDS: Ondansetron 4 MG/2 ML SDV IVPUSH ONE (14:19)
[2024-02-28] MEDS: Famotidine 20 MG/2 ML SDV IVPUSH ONE (14:19)
[2024-02-28] MEDS: Multivitamin Tab PO ONE (14:24)
[2024-02-28] MEDS: Folic Acid 1 MG Tab PO ONE (14:24)
[2024-02-28] MEDS: Thiamine 100 MG Tab PO ONE (14:24)
[2024-02-28 14:40] LABS: BASOPHILS ABSOLUTE AUTO 0.03 K/uL (0.00-0.20); BASOPHILS PERCENT AUTO 0.7 % (0.0-1.0); HEMATOCRIT 38.6 % (42.0-52.0); HEMOGLOBIN 13.1 g/dL (14.0-18.0); IMMATURE GRAN ABSOLUTE AUTO 0.01 K/uL (0.00-0.05); IMMATURE GRAN PERCENT AUTO 0.2 % (0.0-0.4); LYMPHOCYTES ABSOLUTE AUTO 1.29 K/uL (1.00-4.80); LYMPHOCYTES PERCENT AUTO 32.2 % (24.0-44.0); MEAN CORPUSCULAR HGB CONC 33.9 g/dL (32.0-36.0); MEAN CORPUSCULAR VOLUME 94.1 fL (83.0-99.0); MEAN PLATELET VOLUME 10.2 fL (9.4-12.4); MONOCYTES PERCENT AUTO 17.5 % (0.0-8.0); NEUTROPHILS ABSOLUTE AUTO 1.98 K/uL (1.80-7.70); NEUTROPHILS PERCENT AUTO 49.4 % (41.0-71.0); PLATELET COUNT,PLT 100 K/uL (150-400); WHITE BLOOD CELL COUNT,WBC 4.01 K/uL (3.9-11.3)
[2024-02-28 14:50] LABS: INR 1.01 (0.86-1.11)
[2024-02-28 15:10] LABS: LACTIC ACID 3.2 mmol/L (0.4-2.0)
[2024-02-28 15:17] LABS: A/G RATIO 1.1 (0.9-1.6); ALBUMIN 3.9 g/dL (3.4-5.0); BILIRUBIN TOTAL 2.1 mg/dL (0.2-1.0); CALCIUM 9.1 mg/dL (8.5-10.1); CARBON DIOXIDE,CO2 30.9 mmol/L (21.0-32.0); EST CRCL DRUG DOSING (CG) 68.24 mL/min; MAGNESIUM 1.9 mg/dL (1.8-2.4); POTASSIUM,K 3.4 mmol/L (3.5-5.1); PROTEIN TOTAL,TP 7.6 g/dL (6.4-8.2)
[2024-02-28 16:13] LABS: AMPHETAMINES SCREEN, URINE NEGATIVE (CUTOFF=500); BARBITURATE SCREEN,URINE NEGATIVE (CUTOFF=200); BENZODIAZEPINES SCREEN,URINE NEGATIVE (CUTOFF=150); BUPRENORPHINE SCREEN,URINE NEGATIVE (CUTOFF=10); METHADONE SCREEN, URINE NEGATIVE (CUTOFF=200); METHAMPHETAMINES SCREEN, URINE PRESUMPTIVE POSITIVE (CUTOFF=500); OXYCODONE SCREEN,URINE NEGATIVE (CUT0FF=100); PCP SCREEN,URINE NEGATIVE (CUTOFF=25); THC SCREEN,URINE 20 NG/ML NEGATIVE (CUTOFF=50)
[2024-02-28] MEDS: Diazepam 5 MG Tab PO ONE (19:06)
[2024-02-28] MEDS ORDERED: Sodium Chloride 0.9% 1,000 ML IV SCH (19:15)
[2024-02-28] MEDS ORDERED: Polyethylene Glycol 3350 Powder 17 GM Packet PO PRN (19:18)
[2024-02-28] MEDS ORDERED: Ibuprofen 400 MG Tab PO PRN (19:18)
[2024-02-28] MEDS ORDERED: PHENobarbital 32.4 MG Tab PO PRN (19:25)
[2024-02-28 20:23] LABS: LACTIC ACID 2.5 mmol/L (0.4-2.0)
[2024-02-28] MEDS: Enoxaparin 40 MG/0.4 ML Syringe SUBCUT SCH (22:22)
[2024-02-28] MEDS: QUEtiapine 25 MG Tab PO SCH (22:22)
[2024-02-28] MEDS: PHENobarbital 32.4 MG Tab PO PRN (22:40)
[2024-02-28] MEDS: Ondansetron 4 MG Tab.DIS PO PRN (23:53)
[2024-02-29] MEDS: droPERidol 1.25 MG in Sodium Chloride 0.9% 50 ML IV ONE (00:24)
[2024-02-29 05:44] LABS: BASOPHILS ABSOLUTE AUTO 0.03 K/uL (0.00-0.20); BASOPHILS PERCENT AUTO 0.6 % (0.0-1.0); EOSINOPHILS ABSOLUTE AUTO 0.02 K/uL (0.00-0.45); EOSINOPHILS PERCENT AUTO 0.4 % (0.0-6.0); HEMATOCRIT 28.9 % (42.0-52.0); HEMOGLOBIN 9.6 g/dL (14.0-18.0); IMMATURE GRAN ABSOLUTE AUTO 0.01 K/uL (0.00-0.05); IMMATURE GRAN PERCENT AUTO 0.2 % (0.0-0.4); LYMPHOCYTES ABSOLUTE AUTO 1.82 K/uL (1.00-4.80); LYMPHOCYTES PERCENT AUTO 37.6 % (24.0-44.0); MEAN CORPUSCULAR HEMOGLOBIN 31.9 pg (28.0-32.0); MEAN CORPUSCULAR HGB CONC 33.2 g/dL (32.0-36.0); MEAN PLATELET VOLUME 10.4 fL (9.4-12.4); MONOCYTES PERCENT AUTO 12.4 % (0.0-8.0); NEUTROPHILS ABSOLUTE AUTO 2.36 K/uL (1.80-7.70); NEUTROPHILS PERCENT AUTO 48.8 % (41.0-71.0); RED BLOOD CELL COUNT 3.01 M/uL (4.52-5.90); WHITE BLOOD CELL COUNT,WBC 4.84 K/uL (3.9-11.3)
[2024-02-29 05:59] LABS: PLATELET COUNT,PLT 87 K/uL (150-400)
[2024-02-29 06:08] LABS: A/G RATIO 1.1 (0.9-1.6); ALBUMIN 2.7 g/dL (3.4-5.0); BILIRUBIN TOTAL 2.3 mg/dL (0.2-1.0); CALCIUM 7.9 mg/dL (8.5-10.1); CARBON DIOXIDE,CO2 27.2 mmol/L (21.0-32.0); CREATININE 0.9 mg/dL (0.8-1.3); EST CRCL DRUG DOSING (CG) 75.57 mL/min; MAGNESIUM 1.4 mg/dL (1.8-2.4); PHOSPHORUS 4.5 mg/dL (2.6-4.7); POTASSIUM,K 3.2 mmol/L (3.5-5.1); PROTEIN TOTAL,TP 5.2 g/dL (6.4-8.2)
[2024-02-29] MEDS: Pantoprazole 40 MG Tab.CR PO SCH (07:03)
[2024-02-29] MEDS: Ondansetron 4 MG/2 ML SDV IVPUSH PRN (08:57)
[2024-02-29] MEDS: Lisinopril/Hydrochlorothiazide 10-12.5 MG Tab PO SCH (08:59)
[2024-02-29] MEDS: Furosemide 20 MG Tab PO SCH (08:59)
[2024-02-29] MEDS: Folic Acid 1 MG/0.2 ML UD Syringe SUBCUT SCH (09:00)
[2024-02-29] MEDS: Potassium Chloride 20 MEQ Tab.ER PO ONE (09:00)
[2024-02-29] MEDS: Thiamine 200 MG/2 ML MDV IVPUSH SCH (09:02)
[2024-02-29] MEDS ORDERED: Acetaminophen/HYDROcodone 325-5 MG Tab PO PRN (09:28)
[2024-02-29] MEDS: Pantoprazole 40 MG in Sodium Chloride 0.9% 10 ML IVPUSH SCH ×2 (10:10→16:57)
[2024-02-29] MEDS: Magnesium Sulfate/Water 2 GM in Premix Bag 1 BAG IV ONE (10:10)
[2024-02-29] MEDS: oxyCODONE 5 MG Tab PO PRN (11:54)
[2024-02-29] MEDS: Sucralfate 1 GM Tab PO SCH (11:54)
[2024-02-29] MEDS: PHENobarbital 32.4 MG Tab PO PRN (11:55)
[2024-02-29] MEDS: Sucralfate Suspension 1 GM/10 ML Cup PO SCH (16:57)
[2024-03-01 07:06] LABS: A/G RATIO 0.9 (0.9-1.6); ALBUMIN 2.9 g/dL (3.4-5.0); BILIRUBIN TOTAL 2.6 mg/dL (0.2-1.0); CARBON DIOXIDE,CO2 32.1 mmol/L (21.0-32.0); CREATININE 0.9 mg/dL (0.8-1.3); EST CRCL DRUG DOSING (CG) 75.57 mL/min; POTASSIUM,K 2.9 mmol/L (3.5-5.1)
[2024-03-01 07:36] LABS: BASOPHILS ABSOLUTE AUTO 0.03 K/uL (0.00-0.20); BASOPHILS PERCENT AUTO 0.6 % (0.0-1.0); EOSINOPHILS PERCENT AUTO 2.1 % (0.0-6.0); HEMATOCRIT 33.2 % (42.0-52.0); HEMOGLOBIN 11.4 g/dL (14.0-18.0); IMMATURE GRAN ABSOLUTE AUTO 0.03 K/uL (0.00-0.05); IMMATURE GRAN PERCENT AUTO 0.6 % (0.0-0.4); LYMPHOCYTES ABSOLUTE AUTO 1.89 K/uL (1.00-4.80); LYMPHOCYTES PERCENT AUTO 39.6 % (24.0-44.0); MEAN CORPUSCULAR HEMOGLOBIN 32.5 pg (28.0-32.0); MEAN CORPUSCULAR HGB CONC 34.3 g/dL (32.0-36.0); MEAN CORPUSCULAR VOLUME 94.6 fL (83.0-99.0); MEAN PLATELET VOLUME 10.8 fL (9.4-12.4); MONOCYTES ABSOLUTE AUTO 0.59 K/uL (0.00-0.80); MONOCYTES PERCENT AUTO 12.4 % (0.0-8.0); NEUTROPHILS ABSOLUTE AUTO 2.13 K/uL (1.80-7.70); NEUTROPHILS PERCENT AUTO 44.7 % (41.0-71.0); PLATELET COUNT,PLT 68 K/uL (150-400); RED BLOOD CELL COUNT 3.51 M/uL (4.52-5.90); WHITE BLOOD CELL COUNT,WBC 4.77 K/uL (3.9-11.3)
[2024-03-01] MEDS: Potassium Chloride 20 MEQ Tab.ER PO ONE (08:59)
[2024-03-01 10:22] LABS: APPEARANCE,URINE CLEAR; BILIRUBIN,URINE NEGATIVE (NEGATIVE); COLOR,URINE ORANGE; GLUCOSE,URINE NEGATIVE (NEGATIVE); KETONES,URINE NEGATIVE (NEGATIVE); LEUKOCYTE ESTERASE,URINE NEGATIVE (NEGATIVE); NITRITE,URINE NEGATIVE (NEGATIVE); OCCULT BLOOD,URINE NEGATIVE (NEGATIVE); PROTEIN,URINE NEGATIVE (NEGATIVE); UROBILINOGEN,URINE 0.2 EU/dL (<2.0)
[2024-03-01] MEDS: Magnesium Sulfate/Water 2 GM in Premix Bag 1 BAG IV ONE (12:55)
[2024-03-01 16:34] VITALS: BP 111/76; PULSE 72
== END 2024-03-01 16:40 | disposition home or self-care (01) | DRG 897 ==
LOC: MW.ED 12:49 → MW.MS 13:08 → UNDOADMIN 13:08 → MW.MS 18:53 → UNDOADMIN 18:53 → MW.MS 19:43
PROVIDERS: ADMIT Family Medicine; ATTEND Family Medicine
DX: F10.220 Alcohol dependence with intoxication, uncomplicated (principal); E87.20 Acidosis, unspecified; G96.08 Other cranial cerebrospinal fluid leak; K21.9 Gastro-esophageal reflux disease without esophagitis; F32.A Depression, unspecified; F41.9 Anxiety disorder, unspecified; E86.0 Dehydration; I10 Essential (primary) hypertension; H54.7 Unspecified visual loss; D69.6 Thrombocytopenia, unspecified; Z88.8 Allergy status to other drugs, medicaments and biological substances; Z87.11 Personal history of peptic ulcer disease; Z79.899 Other long term (current) drug therapy
CPT/HCPCS: 36415; 70450; 70450-26; 80053; 80305-QW; 80307; 81003; 83605; 83690; 83735; 84100; 85025; 85610; 93005; 96361; 96374; 96375; 97162-GP; 97530-GP; 99284; 99285-25; A9270-GY; J1650; J2405; J2470; J3360; J3411; J3475; J3490; J7030

== ENCOUNTER 2024-05-21 16:37 | Inpatient (IN) | payer MEDICAID ==
[2024-05-21] MEDS: Sodium Chloride 0.9% 2.5 ML Syringe FLUSH PRN (17:11)
[2024-05-21] MEDS: Sodium Chloride 0.9% 1,000 ML IV ONE (17:11)
[2024-05-21] MEDS: Acetaminophen 500 MG Tab PO ONE (17:11)
[2024-05-21] MEDS: Sodium Chloride 0.9% 10 ML Syringe FLUSH PRN (17:11)
[2024-05-21 17:29] LABS: HEMATOCRIT 39.5 % (42.0-52.0); HEMOGLOBIN 14.3 g/dL (14.0-18.0); MEAN CORPUSCULAR HEMOGLOBIN 34.7 pg (28.0-32.0); MEAN CORPUSCULAR HGB CONC 36.2 g/dL (32.0-36.0); MEAN CORPUSCULAR VOLUME 95.9 fL (83.0-99.0); MEAN PLATELET VOLUME 9.5 fL (9.4-12.4); PLATELET COUNT,PLT 127 K/uL (150-400); RED BLOOD CELL COUNT 4.12 M/uL (4.52-5.90); WHITE BLOOD CELL COUNT,WBC 3.48 K/uL (3.9-11.3)
[2024-05-21 17:52] LABS: A/G RATIO 0.9 (0.9-1.6); BILIRUBIN TOTAL 3.3 mg/dL (0.2-1.0); CALCIUM 8.3 mg/dL (8.5-10.1); CARBON DIOXIDE,CO2 27.5 mmol/L (21.0-32.0); EST CRCL DRUG DOSING (CG) 65.71 mL/min; PROTEIN TOTAL,TP 6.2 g/dL (6.4-8.2)
[2024-05-21 18:38] LABS: BAND ABSOLUTE MAN 0.03; BAND PERCENT MAN 1 %; BASOPHILS ABSOLUTE MAN 0.03 K/uL (0.00-0.20); BASOPHILS PERCENT MAN 1 % (0-1); EOSINOPHILS ABSOLUTE MAN 0.03 K/uL (0.00-0.45); EOSINOPHILS PERCENT MAN 1 % (0-6); LYMPHOCYTES ABSOLUTE MAN 0.97 K/uL (1.00-4.80); LYMPHOCYTES PERCENT MAN 28 % (24-44); MONOCYTES ABSOLUTE MAN 0.73 K/uL (0.00-0.80); MONOCYTES PERCENT MAN 21 % (0-8); SEG NEUTROPHILS ABSOLUTE MAN 1.67 K/uL (1.80-7.70); SEG NEUTROPHILS PERCENT MAN 48 % (41-71)
[2024-05-21 19:50] LABS: POTASSIUM,K 2.6 mmol/L (3.5-5.1)
[2024-05-21 20:52] LABS: INR 1.18 (0.86-1.11)
[2024-05-21] MEDS: Iopamidol 755 MG/ML 500 ML Multipack Bottle IVPUSH ONE (20:55)
[2024-05-21] MEDS: Potassium Chloride 20 MEQ Tab.ER PO ONE (21:21)
[2024-05-21] MEDS: Magnesium Oxide 400 MG Tab PO ONE (21:22)
[2024-05-21] MEDS ORDERED: Potassium Chloride 20 MEQ Tab.ER PO ONE (21:23)
[2024-05-21] MEDS: Potassium Chloride 10 MEQ in Premix Bag 1 BAG IV PRN (21:36)
[2024-05-21] MEDS: Folic Acid 1 MG Tab PO ONE (21:58)
[2024-05-21] MEDS: Multivitamin Tab PO ONE (21:58)
[2024-05-21] MEDS: PHENobarbitaL sodium 260 MG in Sodium Chloride 0.9% 100 ML IV ONE (22:49)
[2024-05-21] MEDS ORDERED: PHENobarbital 32.4 MG Tab PO PRN ×2 (23:18→23:19)
[2024-05-21] MEDS ORDERED: Ondansetron 4 MG/2 ML SDV IVPUSH PRN (23:54)
[2024-05-21] MEDS: Sodium Chloride 0.9% 1,000 ML IV SCH (23:57)
[2024-05-22] MEDS: Pantoprazole 40 MG in Sodium Chloride 0.9% 10 ML IVPUSH SCH (00:07)
[2024-05-22] MEDS: Ondansetron 4 MG/2 ML SDV IVPUSH PRN (00:13)
[2024-05-22] MEDS: oxyCODONE 5 MG Tab PO PRN (00:21)
[2024-05-22] MEDS: Prochlorperazine 10 MG/2 ML SDV IVPUSH ONE (02:06)
[2024-05-22] MEDS: PHENobarbital 32.4 MG Tab PO PRN (02:59)
[2024-05-22 05:48] LABS: BASOPHILS ABSOLUTE AUTO 0.06 K/uL (0.00-0.20); BASOPHILS PERCENT AUTO 0.9 % (0.0-1.0); EOSINOPHILS ABSOLUTE AUTO 0.03 K/uL (0.00-0.45); EOSINOPHILS PERCENT AUTO 0.4 % (0.0-6.0); HEMATOCRIT 29.5 % (42.0-52.0); HEMOGLOBIN 10.7 g/dL (14.0-18.0); IMMATURE GRAN ABSOLUTE AUTO 0.05 K/uL (0.00-0.05); IMMATURE GRAN PERCENT AUTO 0.7 % (0.0-0.4); LYMPHOCYTES ABSOLUTE AUTO 1.49 K/uL (1.00-4.80); LYMPHOCYTES PERCENT AUTO 21.3 % (24.0-44.0); MEAN CORPUSCULAR HEMOGLOBIN 35.4 pg (28.0-32.0); MEAN CORPUSCULAR HGB CONC 36.3 g/dL (32.0-36.0); MEAN CORPUSCULAR VOLUME 97.7 fL (83.0-99.0); MEAN PLATELET VOLUME 9.6 fL (9.4-12.4); MONOCYTES ABSOLUTE AUTO 0.89 K/uL (0.00-0.80); MONOCYTES PERCENT AUTO 12.7 % (0.0-8.0); NEUTROPHILS ABSOLUTE AUTO 4.47 K/uL (1.80-7.70); NRBC ABSOLUTE 0.02 K/uL (0.00-0.02); NRBC PERCENT 0.3 /100WBC (0.0-0.2); PLATELET COUNT,PLT 118 K/uL (150-400); RED BLOOD CELL COUNT 3.02 M/uL (4.52-5.90); WHITE BLOOD CELL COUNT,WBC 6.99 K/uL (3.9-11.3)
[2024-05-22 06:13] LABS: A/G RATIO 0.9 (0.9-1.6); ALBUMIN 2.4 g/dL (3.4-5.0); BILIRUBIN TOTAL 3.1 mg/dL (0.2-1.0); CALCIUM 7.5 mg/dL (8.5-10.1); CARBON DIOXIDE,CO2 26.6 mmol/L (21.0-32.0); CREATININE 0.9 mg/dL (0.8-1.3); EST CRCL DRUG DOSING (CG) 73.01 mL/min; MAGNESIUM 1.4 mg/dL (1.8-2.4); PHOSPHORUS 2.8 mg/dL (2.6-4.7); POTASSIUM,K 3.5 mmol/L (3.5-5.1)
[2024-05-22] MEDS: PHENobarbital Sodium 130 MG/ML SDV IVPUSH PRN (06:23)
[2024-05-22] MEDS: Metoclopramide 10 MG/2 ML SDV IVPUSH ONE (06:27)
[2024-05-22] MEDS ORDERED: Acetaminophen 1,000 MG in Premix Bag 1 BAG IV PRN (09:08)
[2024-05-22] MEDS: LORazepam 2 MG/ML SDV IVPUSH ONE (09:32)
[2024-05-22] MEDS: Lactated Ringers 1,000 ML IV ONE (09:32)
[2024-05-22] MEDS: D5 1/2 NS w/ 20 mEq/L KCl 1,000 ML IV SCH (09:32)
[2024-05-22] MEDS: Thiamine 200 MG/2 ML MDV IVPUSH SCH (09:33)
[2024-05-22] MEDS: Escitalopram 10 MG Tab PO SCH (09:34)
[2024-05-22] MEDS: levETIRAcetam 500 MG Tab PO SCH (09:34)
[2024-05-22] MEDS: Folic Acid 1 MG Tab PO SCH (09:34)
[2024-05-22] MEDS ORDERED: LORazepam 2 MG/ML SDV IV PRN (13:50)
[2024-05-22] MEDS: LORazepam 2 MG/ML SDV IV PRN (17:54)
[2024-05-22 22:07] LABS: CALCIUM 8.2 mg/dL (8.5-10.1); CARBON DIOXIDE,CO2 30.6 mmol/L (21.0-32.0); CREATININE 0.7 mg/dL (0.8-1.3); EST CRCL DRUG DOSING (CG) 93.87 mL/min; POTASSIUM,K 3.8 mmol/L (3.5-5.1)
[2024-05-23] MEDS: Sodium Chloride 0.9% 1,000 ML IV SCH (00:15)
[2024-05-23 06:18] LABS: BASOPHILS ABSOLUTE AUTO 0.07 K/uL (0.00-0.20); BASOPHILS PERCENT AUTO 1.4 % (0.0-1.0); EOSINOPHILS ABSOLUTE AUTO 0.14 K/uL (0.00-0.45); EOSINOPHILS PERCENT AUTO 2.9 % (0.0-6.0); HEMATOCRIT 30.9 % (42.0-52.0); HEMOGLOBIN 10.7 g/dL (14.0-18.0); IMMATURE GRAN ABSOLUTE AUTO 0.04 K/uL (0.00-0.05); IMMATURE GRAN PERCENT AUTO 0.8 % (0.0-0.4); LYMPHOCYTES PERCENT AUTO 24.6 % (24.0-44.0); MEAN CORPUSCULAR HEMOGLOBIN 35.2 pg (28.0-32.0); MEAN CORPUSCULAR HGB CONC 34.6 g/dL (32.0-36.0); MEAN CORPUSCULAR VOLUME 101.6 fL (83.0-99.0); MEAN PLATELET VOLUME 9.9 fL (9.4-12.4); MONOCYTES ABSOLUTE AUTO 0.55 K/uL (0.00-0.80); MONOCYTES PERCENT AUTO 11.3 % (0.0-8.0); NEUTROPHILS ABSOLUTE AUTO 2.87 K/uL (1.80-7.70); NRBC ABSOLUTE 0.02 K/uL (0.00-0.02); NRBC PERCENT 0.4 /100WBC (0.0-0.2); PLATELET COUNT,PLT 113 K/uL (150-400); RED BLOOD CELL COUNT 3.04 M/uL (4.52-5.90); WHITE BLOOD CELL COUNT,WBC 4.87 K/uL (3.9-11.3)
[2024-05-23 06:55] LABS: A/G RATIO 0.9 (0.9-1.6); ALBUMIN 2.3 g/dL (3.4-5.0); BILIRUBIN TOTAL 3.4 mg/dL (0.2-1.0); CARBON DIOXIDE,CO2 29.6 mmol/L (21.0-32.0); CREATININE 0.9 mg/dL (0.8-1.3); EST CRCL DRUG DOSING (CG) 74.93 mL/min; MAGNESIUM 1.4 mg/dL (1.8-2.4); POTASSIUM,K 3.8 mmol/L (3.5-5.1); PROTEIN TOTAL,TP 4.8 g/dL (6.4-8.2)
[2024-05-23] MEDS: hydrOXYzine HCl 25 MG Tab PO PRN (09:10)
[2024-05-23] MEDS: Magnesium Sulfate/Water Premix 4 GM in Premix Bag 1 BAG IV ONE (09:15)
[2024-05-23] MEDS: Phosphorus #1 250 MG Tab PO ONE (09:22)
[2024-05-23] MEDS ORDERED: Acetaminophen 325 MG Tab PO PRN (09:59)
[2024-05-23] MEDS: Pantoprazole 40 MG in Sodium Chloride 0.9% 10 ML IVPUSH SCH (11:30)
[2024-05-23] MEDS: Topiramate 50 MG Tab PO SCH (11:30)
[2024-05-23 18:13] LABS: CALCIUM 7.7 mg/dL (8.5-10.1); CARBON DIOXIDE,CO2 28.5 mmol/L (21.0-32.0); CREATININE 0.8 mg/dL (0.8-1.3); EST CRCL DRUG DOSING (CG) 84.3 mL/min; MAGNESIUM 2.4 mg/dL (1.8-2.4); PHOSPHORUS 2.1 mg/dL (2.6-4.7); POTASSIUM,K 3.7 mmol/L (3.5-5.1)
[2024-05-24 14:27] LABS: BASOPHILS ABSOLUTE AUTO 0.07 K/uL (0.00-0.20); BASOPHILS PERCENT AUTO 1.5 % (0.0-1.0); EOSINOPHILS ABSOLUTE AUTO 0.12 K/uL (0.00-0.45); EOSINOPHILS PERCENT AUTO 2.5 % (0.0-6.0); HEMATOCRIT 32.2 % (42.0-52.0); HEMOGLOBIN 11.1 g/dL (14.0-18.0); IMMATURE GRAN ABSOLUTE AUTO 0.04 K/uL (0.00-0.05); IMMATURE GRAN PERCENT AUTO 0.8 % (0.0-0.4); LYMPHOCYTES ABSOLUTE AUTO 0.89 K/uL (1.00-4.80); LYMPHOCYTES PERCENT AUTO 18.5 % (24.0-44.0); MEAN CORPUSCULAR HGB CONC 34.5 g/dL (32.0-36.0); MEAN CORPUSCULAR VOLUME 104.5 fL (83.0-99.0); MEAN PLATELET VOLUME 9.8 fL (9.4-12.4); MONOCYTES ABSOLUTE AUTO 0.59 K/uL (0.00-0.80); MONOCYTES PERCENT AUTO 12.3 % (0.0-8.0); NEUTROPHILS ABSOLUTE AUTO 3.09 K/uL (1.80-7.70); NEUTROPHILS PERCENT AUTO 64.4 % (41.0-71.0); PLATELET COUNT,PLT 131 K/uL (150-400); RED BLOOD CELL COUNT 3.08 M/uL (4.52-5.90)
[2024-05-24 14:52] LABS: A/G RATIO 0.9 (0.9-1.6); ALBUMIN 2.6 g/dL (3.4-5.0); BILIRUBIN TOTAL 3.8 mg/dL (0.2-1.0); CARBON DIOXIDE,CO2 24.7 mmol/L (21.0-32.0); CREATININE 0.9 mg/dL (0.8-1.3); EST CRCL DRUG DOSING (CG) 74.93 mL/min; MAGNESIUM 1.9 mg/dL (1.8-2.4); POTASSIUM,K 3.6 mmol/L (3.5-5.1); PROTEIN TOTAL,TP 5.5 g/dL (6.4-8.2)
[2024-05-24] MEDS: oxyCODONE 5 MG Tab PO PRN (19:48)
[2024-05-25 06:35] LABS: BASOPHILS ABSOLUTE AUTO 0.07 K/uL (0.00-0.20); BASOPHILS PERCENT AUTO 1.6 % (0.0-1.0); EOSINOPHILS ABSOLUTE AUTO 0.14 K/uL (0.00-0.45); EOSINOPHILS PERCENT AUTO 3.3 % (0.0-6.0); HEMOGLOBIN 10.6 g/dL (14.0-18.0); IMMATURE GRAN ABSOLUTE AUTO 0.05 K/uL (0.00-0.05); IMMATURE GRAN PERCENT AUTO 1.2 % (0.0-0.4); LYMPHOCYTES ABSOLUTE AUTO 1.41 K/uL (1.00-4.80); LYMPHOCYTES PERCENT AUTO 32.8 % (24.0-44.0); MEAN CORPUSCULAR HEMOGLOBIN 35.8 pg (28.0-32.0); MEAN CORPUSCULAR HGB CONC 34.2 g/dL (32.0-36.0); MEAN CORPUSCULAR VOLUME 104.7 fL (83.0-99.0); MEAN PLATELET VOLUME 9.8 fL (9.4-12.4); MONOCYTES ABSOLUTE AUTO 0.66 K/uL (0.00-0.80); MONOCYTES PERCENT AUTO 15.3 % (0.0-8.0); NEUTROPHILS ABSOLUTE AUTO 1.97 K/uL (1.80-7.70); NEUTROPHILS PERCENT AUTO 45.8 % (41.0-71.0); PLATELET COUNT,PLT 111 K/uL (150-400); RED BLOOD CELL COUNT 2.96 M/uL (4.52-5.90)
[2024-05-25 07:06] LABS: A/G RATIO 0.9 (0.9-1.6); ALBUMIN 2.3 g/dL (3.4-5.0); BILIRUBIN TOTAL 3.2 mg/dL (0.2-1.0); CALCIUM 8.4 mg/dL (8.5-10.1); CARBON DIOXIDE,CO2 23.1 mmol/L (21.0-32.0); CREATININE 0.8 mg/dL (0.8-1.3); EST CRCL DRUG DOSING (CG) 84.3 mL/min; MAGNESIUM 1.8 mg/dL (1.8-2.4); PHOSPHORUS 2.3 mg/dL (2.6-4.7); POTASSIUM,K 4.2 mmol/L (3.5-5.1)
[2024-05-25] MEDS: Acetaminophen 325 MG Tab PO PRN (10:28)
[2024-05-25 12:03] VITALS: BP 154/101; PULSE 102
[2024-05-25] MEDS: Phosphorus #1 250 MG Tab PO SCH (12:46)
== END 2024-05-25 12:16 | disposition home or self-care (01) | DRG 897 ==
LOC: MW.ED 16:37 → UNDOADMOB 22:06 → MW.ICU 22:06 → OBSVTOIN 05-22 10:46 → MW.MS 05-23 20:10
PROVIDERS: ADMIT Internal Medicine; ATTEND Internal Medicine
PROC: HZ2ZZZZ Detoxification Services for Substance Abuse Treatment (ICD-10-PCS; principal; 2024-05-22)
DX: F10.139 Alcohol abuse with withdrawal, unspecified (principal); G40.909 Epilepsy, unspecified, not intractable, without status epilepticus; E87.6 Hypokalemia; H54.7 Unspecified visual loss; I10 Essential (primary) hypertension; K22.89 Other specified disease of esophagus; K21.9 Gastro-esophageal reflux disease without esophagitis; F41.9 Anxiety disorder, unspecified; F32.A Depression, unspecified; K44.9 Diaphragmatic hernia without obstruction or gangrene; Z88.8 Allergy status to other drugs, medicaments and biological substances; Z79.899 Other long term (current) drug therapy; Z87.11 Personal history of peptic ulcer disease; Z98.890 Other specified postprocedural states
CPT/HCPCS: 36415; 70450; 70450-26; 74177; 74177-26; 80048; 80053; 80307; 82330; 82550; 83690; 83735; 84100; 85025; 85610; 97162-GP; A9270-GY; J0780; J1953; J2060; J2405; J2470; J2560; J2765; J3411; J3475; J3480; J3490; J7030; J7060; J7120; Q9967

== ENCOUNTER 2024-06-20 11:07 | Day surgery (SDC) | payer MEDICAID ==
[2024-06-20] MEDS: Lactated Ringers 1,000 ML IV SCH (11:49)
[2024-06-20] MEDS ORDERED: Lidocaine 2% 5 ML SDV ONE (11:52)
[2024-06-20] MEDS ORDERED: propofoL 500 MG/50 ML 50 ML ONE (11:53)
[2024-06-20] MEDS ORDERED: Phenylephrine HCl In 0.9% NaCl 1 MG/10 ML Syringe ONE (12:12)
[2024-06-20] MEDS ORDERED: Propofol 200 MG/20 ML SDV ONE (12:19)
[2024-06-20] MEDS ORDERED: Lactated Ringers 1,000 ML IV SCH (13:00)
[2024-06-20 13:56] VITALS: BP 117/79; PULSE 67
== END 2024-06-20 13:32 | disposition home or self-care (01) ==
LOC: MW.SDS 11:07
PROVIDERS: ATTEND Surgery
DX: D12.2 Benign neoplasm of ascending colon (principal); K63.5 Polyp of colon; K21.00 Gastro-esophageal reflux disease with esophagitis, without bleeding; R13.10 Dysphagia, unspecified; K31.89 Other diseases of stomach and duodenum; R63.4 Abnormal weight loss; F32.A Depression, unspecified; Z87.891 Personal history of nicotine dependence; Z79.899 Other long term (current) drug therapy
CPT/HCPCS: 43239; 45380; J2371; J2704; J7120; 00813; J3490

== ENCOUNTER 2024-07-21 11:58 | Emergency (ER) | payer MEDICAID ==
[2024-07-21] MEDS: Sodium Chloride 0.9% 1,000 ML IV ONE (12:25)
[2024-07-21] MEDS: Acetaminophen 500 MG Tab PO ONE (12:26)
[2024-07-21] MEDS: Ondansetron 4 MG/2 ML SDV IVPUSH ONE (13:04)
[2024-07-21 14:00] LABS: BASOPHILS ABSOLUTE AUTO 0.03 K/uL (0.00-0.20); BASOPHILS PERCENT AUTO 0.8 % (0.0-1.0); HEMATOCRIT 36.8 % (42.0-52.0); HEMOGLOBIN 12.9 g/dL (14.0-18.0); IMMATURE GRAN ABSOLUTE AUTO 0.01 K/uL (0.00-0.05); IMMATURE GRAN PERCENT AUTO 0.3 % (0.0-0.4); LYMPHOCYTES ABSOLUTE AUTO 1.36 K/uL (1.00-4.80); LYMPHOCYTES PERCENT AUTO 35.1 % (24.0-44.0); MEAN CORPUSCULAR HEMOGLOBIN 32.4 pg (28.0-32.0); MEAN CORPUSCULAR HGB CONC 35.1 g/dL (32.0-36.0); MEAN CORPUSCULAR VOLUME 92.5 fL (83.0-99.0); MEAN PLATELET VOLUME 10.6 fL (9.4-12.4); MONOCYTES ABSOLUTE AUTO 0.53 K/uL (0.00-0.80); MONOCYTES PERCENT AUTO 13.7 % (0.0-8.0); NEUTROPHILS ABSOLUTE AUTO 1.94 K/uL (1.80-7.70); NEUTROPHILS PERCENT AUTO 50.1 % (41.0-71.0); RED BLOOD CELL COUNT 3.98 M/uL (4.52-5.90); WHITE BLOOD CELL COUNT,WBC 3.87 K/uL (3.9-11.3)
[2024-07-21 14:10] LABS: PLATELET COUNT,PLT 81 K/uL (150-400)
[2024-07-21] MEDS: LORazepam 2 MG/ML SDV IVPUSH ONE (14:17)
[2024-07-21 14:23] LABS: A/G RATIO 1.2 (0.9-1.6); ALBUMIN 3.2 g/dL (3.4-5.0); BILIRUBIN TOTAL 1.8 mg/dL (0.2-1.0); CALCIUM 8.2 mg/dL (8.5-10.1); CARBON DIOXIDE,CO2 30.5 mmol/L (21.0-32.0); CREATININE 0.8 mg/dL (0.8-1.3); EST CRCL DRUG DOSING (CG) 82.86 mL/min; MAGNESIUM 1.9 mg/dL (1.8-2.4); POTASSIUM,K 3.5 mmol/L (3.5-5.1); PROTEIN TOTAL,TP 5.9 g/dL (6.4-8.2)
[2024-07-21 16:26] VITALS: BP 141/89
[2024-07-21 16:39] VITALS: PULSE 72
== END 2024-07-21 16:38 | disposition home or self-care (01) ==
LOC: MW.ED 11:58
DX: G40.909 Epilepsy, unspecified, not intractable, without status epilepticus (principal); I10 Essential (primary) hypertension; K21.9 Gastro-esophageal reflux disease without esophagitis; Z79.899 Other long term (current) drug therapy; Z88.8 Allergy status to other drugs, medicaments and biological substances; Z75.8 Other problems related to medical facilities and other health care
CPT/HCPCS: 36415; 70450; 72125; 80053; 83690; 83735; 85025; 96361; 96374; 96375; 99285; A9270; J1953; J2060; J2405; J7030; 99284

== ENCOUNTER 2024-07-22 01:01 | Emergency (ER) | payer MEDICAID ==
[2024-07-22] MEDS ORDERED: Sodium Chloride 0.9% 10 ML Syringe FLUSH PRN (01:03)
[2024-07-22] MEDS ORDERED: Ondansetron 4 MG/2 ML SDV IVPUSH ONE (01:13)
[2024-07-22] MEDS ORDERED: Diazepam 5 MG Tab PO ONE (01:40)
[2024-07-22] MEDS: Ondansetron 4 MG Tab.DIS PO ONE (02:03)
[2024-07-22 02:32] LABS: BASOPHILS ABSOLUTE AUTO 0.04 K/uL (0.00-0.20); BASOPHILS PERCENT AUTO 0.9 % (0.0-1.0); HEMATOCRIT 37.5 % (42.0-52.0); HEMOGLOBIN 13.1 g/dL (14.0-18.0); IMMATURE GRAN ABSOLUTE AUTO 0.01 K/uL (0.00-0.05); IMMATURE GRAN PERCENT AUTO 0.2 % (0.0-0.4); LYMPHOCYTES ABSOLUTE AUTO 1.74 K/uL (1.00-4.80); LYMPHOCYTES PERCENT AUTO 39.5 % (24.0-44.0); MEAN CORPUSCULAR HEMOGLOBIN 32.8 pg (28.0-32.0); MEAN CORPUSCULAR HGB CONC 34.9 g/dL (32.0-36.0); MEAN CORPUSCULAR VOLUME 93.8 fL (83.0-99.0); MEAN PLATELET VOLUME 10.4 fL (9.4-12.4); MONOCYTES ABSOLUTE AUTO 0.55 K/uL (0.00-0.80); MONOCYTES PERCENT AUTO 12.5 % (0.0-8.0); NEUTROPHILS ABSOLUTE AUTO 2.06 K/uL (1.80-7.70); NEUTROPHILS PERCENT AUTO 46.9 % (41.0-71.0); PLATELET COUNT,PLT 73 K/uL (150-400)
[2024-07-22 02:53] LABS: A/G RATIO 1.3 (0.9-1.6); ACETAMINOPHEN < 2.0 ug/mL; ALANINE AMINOTRANSFERASE,ALT 27 IU/L (14-63); ALBUMIN 3.3 g/dL (3.4-5.0); ALKALINE PHOSPHATASE 158 U/L (46-116); ASPARTATE AMNIOTRANSFERASE,AST 54 IU/L (15-37); BILIRUBIN TOTAL 2.2 mg/dL (0.2-1.0); BLOOD UREA NITROGEN,BUN 4 mg/dL (7.0-18.0); CALCIUM 8.2 mg/dL (8.5-10.1); CARBON DIOXIDE,CO2 31.2 mmol/L (21.0-32.0); CHLORIDE,CL 99 mmol/L (98-107); CREATININE 0.9 mg/dL (0.8-1.3); EST CRCL DRUG DOSING (CG) 75.57 mL/min; ETHANOL BLOOD MEDICAL 213 mg/dL; GLUCOSE RANDOM 108 mg/dL (74-106); LIPASE 37 U/L (16-77); POTASSIUM,K 2.9 mmol/L (3.5-5.1); PROTEIN TOTAL,TP 5.9 g/dL (6.4-8.2); SALICYLATE <0.2 mg/dL (0.0-20.0); SODIUM,NA 141 mmol/L (136-148)
[2024-07-22 02:59] LABS: ESTIMATED GFR 100 mL/min (>60)
[2024-07-22] MEDS: Thiamine 100 MG Tab PO ONE (03:09)
[2024-07-22] MEDS: Multivitamin Tab PO ONE (03:09)
[2024-07-22] MEDS: Folic Acid 1 MG Tab PO ONE (03:09)
[2024-07-22] MEDS: Topiramate 50 MG Tab PO ONE (03:09)
[2024-07-22] MEDS: levETIRAcetam 500 MG Tab PO ONE (03:09)
[2024-07-22] MEDS: Haloperidol Lactate 5 MG/ML SDV IM PRN (03:24)
[2024-07-22] MEDS: Sodium Chloride 0.9% 1,000 ML IV ONE ×3 (04:02→05:07)
[2024-07-22 05:12] VITALS: BP 127/79
[2024-07-22 06:47] VITALS: PULSE 87
== END 2024-07-22 06:48 | disposition home or self-care (01) ==
LOC: MW.ED 01:01
DX: F10.129 Alcohol abuse with intoxication, unspecified (principal); E86.0 Dehydration; E87.6 Hypokalemia; R74.01 Elevation of levels of liver transaminase levels; Z86.69 Personal history of other diseases of the nervous system and sense organs; I10 Essential (primary) hypertension; Z86.73 Personal history of transient ischemic attack (TIA), and cerebral infarction without residual deficits; Z79.899 Other long term (current) drug therapy; Z88.4 Allergy status to anesthetic agent; Z88.8 Allergy status to other drugs, medicaments and biological substances; Y90.7 Blood alcohol level of 200-239 mg/100 ml
CPT/HCPCS: 36415; 80053; 80143; 80179; 80307; 83605; 83690; 83735; 85025; 93005; 96360; 96361; 96372; 99285; A9270; J1630; J7030

== ENCOUNTER 2024-08-26 14:14 | Emergency (ER) | payer MEDICAID ==
[2024-08-26] MEDS ORDERED: Sodium Chloride 0.9% 10 ML Syringe FLUSH PRN (14:47)
[2024-08-26 15:13] LABS: BASOPHILS ABSOLUTE AUTO 0.04 K/uL (0.00-0.20); BASOPHILS PERCENT AUTO 1.2 % (0.0-1.0); HEMATOCRIT 38.7 % (42.0-52.0); HEMOGLOBIN 13.8 g/dL (14.0-18.0); IMMATURE GRAN ABSOLUTE AUTO 0.05 K/uL (0.00-0.05); IMMATURE GRAN PERCENT AUTO 1.5 % (0.0-0.4); LYMPHOCYTES ABSOLUTE AUTO 0.68 K/uL (1.00-4.80); LYMPHOCYTES PERCENT AUTO 21.1 % (24.0-44.0); MEAN CORPUSCULAR HEMOGLOBIN 33.3 pg (28.0-32.0); MEAN CORPUSCULAR HGB CONC 35.7 g/dL (32.0-36.0); MEAN CORPUSCULAR VOLUME 93.3 fL (83.0-99.0); MEAN PLATELET VOLUME 10.2 fL (9.4-12.4); MONOCYTES ABSOLUTE AUTO 0.56 K/uL (0.00-0.80); MONOCYTES PERCENT AUTO 17.3 % (0.0-8.0); NEUTROPHILS PERCENT AUTO 58.9 % (41.0-71.0); PLATELET COUNT,PLT 86 K/uL (150-400); RED BLOOD CELL COUNT 4.15 M/uL (4.52-5.90); WHITE BLOOD CELL COUNT,WBC 3.23 K/uL (3.9-11.3)
[2024-08-26 15:49] LABS: BILIRUBIN TOTAL 2.5 mg/dL (0.2-1.0); CALCIUM 8.3 mg/dL (8.5-10.1); CARBON DIOXIDE,CO2 28.6 mmol/L (21.0-32.0); CREATININE 0.8 mg/dL (0.8-1.3); EST CRCL DRUG DOSING (CG) 83.58 mL/min; MAGNESIUM 1.9 mg/dL (1.8-2.4); PROTEIN TOTAL,TP 6.1 g/dL (6.4-8.2)
[2024-08-26] MEDS ORDERED: Naloxone 0.4 MG/ML SDV IVPUSH PRN (16:21)
[2024-08-26] MEDS: Sodium Chloride 0.9% 1,000 ML IV ONE (16:34)
[2024-08-26] MEDS: Morphine 4 MG/ML Syringe IVPUSH ONE (16:35)
[2024-08-26] MEDS: Tetracaine HCl/PF 0.5% 4 ML Bottle ONE (16:40)
[2024-08-26] MEDS: Tetracaine HCl/PF 0.5% 4 ML Bottle EYELF ONE (16:45)
[2024-08-26] MEDS: Ondansetron 4 MG/2 ML SDV IVPUSH ONE (17:50)
[2024-08-26] MEDS: oxyCODONE 5 MG Tab PO ONE (20:05)
[2024-08-26 20:16] VITALS: BP 131/90; PULSE 99
== END 2024-08-26 20:16 | disposition home or self-care (01) ==
LOC: MW.ED 14:14
DX: R56.9 Unspecified convulsions (principal); S05.12XA Contusion of eyeball and orbital tissues, left eye, initial encounter; I10 Essential (primary) hypertension; K21.9 Gastro-esophageal reflux disease without esophagitis; Z88.8 Allergy status to other drugs, medicaments and biological substances; Z79.899 Other long term (current) drug therapy; W19.XXXA Unspecified fall, initial encounter
CPT/HCPCS: 36415; 70450; 70480; 71045; 72125; 73030; 73080; 80053; 80307; 83735; 85025; 93005; 96361; 96365; 96375; 99284; A9270; J1953; J2270; J2405; J7030; 93010; J3490

== ENCOUNTER 2024-09-05 07:13 | Inpatient (IN) | payer MEDICAID ==
[2024-09-05] MEDS ORDERED: Sodium Chloride 0.9% 10 ML Syringe FLUSH PRN (07:16)
[2024-09-05] MEDS ORDERED: Sodium Chloride 0.9% 2.5 ML Syringe FLUSH PRN (07:16)
[2024-09-05] MEDS: Ondansetron 4 MG/2 ML SDV IVPUSH ONE (07:52)
[2024-09-05] MEDS: Sodium Chloride 0.9% 1,000 ML IV ONE (08:21)
[2024-09-05 08:37] LABS: BASOPHILS ABSOLUTE AUTO 0.05 K/uL (0.00-0.20); BASOPHILS PERCENT AUTO 1.1 % (0.0-1.0); EOSINOPHILS ABSOLUTE AUTO 0.01 K/uL (0.00-0.45); EOSINOPHILS PERCENT AUTO 0.2 % (0.0-6.0); HEMOGLOBIN 12.3 g/dL (14.0-18.0); IMMATURE GRAN ABSOLUTE AUTO 0.05 K/uL (0.00-0.05); IMMATURE GRAN PERCENT AUTO 1.1 % (0.0-0.4); LYMPHOCYTES ABSOLUTE AUTO 1.01 K/uL (1.00-4.80); LYMPHOCYTES PERCENT AUTO 21.5 % (24.0-44.0); MEAN CORPUSCULAR HEMOGLOBIN 35.3 pg (28.0-32.0); MEAN CORPUSCULAR HGB CONC 37.3 g/dL (32.0-36.0); MEAN CORPUSCULAR VOLUME 94.8 fL (83.0-99.0); MEAN PLATELET VOLUME 9.4 fL (9.4-12.4); MONOCYTES ABSOLUTE AUTO 0.83 K/uL (0.00-0.80); MONOCYTES PERCENT AUTO 17.7 % (0.0-8.0); NEUTROPHILS ABSOLUTE AUTO 2.74 K/uL (1.80-7.70); NEUTROPHILS PERCENT AUTO 58.4 % (41.0-71.0); NRBC ABSOLUTE 0.02 K/uL (0.00-0.02); NRBC PERCENT 0.4 /100WBC (0.0-0.2); PLATELET COUNT,PLT 119 K/uL (150-400); RED BLOOD CELL COUNT 3.48 M/uL (4.52-5.90); WHITE BLOOD CELL COUNT,WBC 4.69 K/uL (3.9-11.3)
[2024-09-05 09:00] LABS: A/G RATIO 0.9 (0.9-1.6); ALBUMIN 2.8 g/dL (3.4-5.0); CALCIUM 8.1 mg/dL (8.5-10.1); CARBON DIOXIDE,CO2 27.9 mmol/L (21.0-32.0); CREATININE 0.9 mg/dL (0.8-1.3); EST CRCL DRUG DOSING (CG) 81.72 mL/min; POTASSIUM,K 3.1 mmol/L (3.5-5.1); PROTEIN TOTAL,TP 5.8 g/dL (6.4-8.2)
[2024-09-05] MEDS: LORazepam 1 MG Tab PO SCH (09:28)
[2024-09-05] MEDS ORDERED: Polyethylene Glycol 3350 Powder 17 GM Packet PO PRN (10:41)
[2024-09-05] MEDS ORDERED: Ondansetron 4 MG Tab.DIS PO PRN (10:41)
[2024-09-05] MEDS ORDERED: HYDROmorphone 2 MG/ML Syringe IVPUSH PRN (10:41)
[2024-09-05] MEDS: LORazepam 2 MG/ML SDV IVPUSH PRN (11:13)
[2024-09-05] MEDS: Sodium Chloride 0.9% 1,000 ML IV SCH (11:14)
[2024-09-05] MEDS: levETIRAcetam 500 MG Tab PO SCH (13:37)
[2024-09-05] MEDS: Potassium Chloride 10 MEQ in Premix Bag 1 BAG IV SCH (13:38)
[2024-09-05] MEDS: Folic Acid 1 MG/0.2 ML UD Syringe IV SCH (15:39)
[2024-09-05] MEDS: Thiamine 250 MG in Sodium Chloride 0.9% 100 ML IV SCH (15:40)
[2024-09-05 18:48] LABS: CALCIUM 7.6 mg/dL (8.5-10.1); CARBON DIOXIDE,CO2 29.1 mmol/L (21.0-32.0); EST CRCL DRUG DOSING (CG) 65.13 mL/min
[2024-09-05] MEDS: HYDROmorphone 0.5 MG/0.5 ML Syringe IVPUSH PRN (20:38)
[2024-09-05] MEDS: Docusate Sodium 100 MG Cap PO PRN (20:39)
[2024-09-05] MEDS: Carboxymethylcellulose Sodium 0.5% Ophth Soln 0.4 ML UD Box of 30 EYEBOTH PRN (20:40)
[2024-09-05] MEDS ORDERED: Topiramate 50 MG Tab PO SCH (21:00)
[2024-09-06 05:37] LABS: BASOPHILS ABSOLUTE AUTO 0.04 K/uL (0.00-0.20); BASOPHILS PERCENT AUTO 1.1 % (0.0-1.0); EOSINOPHILS ABSOLUTE AUTO 0.04 K/uL (0.00-0.45); EOSINOPHILS PERCENT AUTO 1.1 % (0.0-6.0); HEMATOCRIT 26.9 % (42.0-52.0); HEMOGLOBIN 9.5 g/dL (14.0-18.0); IMMATURE GRAN ABSOLUTE AUTO 0.02 K/uL (0.00-0.05); IMMATURE GRAN PERCENT AUTO 0.6 % (0.0-0.4); LYMPHOCYTES ABSOLUTE AUTO 0.74 K/uL (1.00-4.80); LYMPHOCYTES PERCENT AUTO 20.7 % (24.0-44.0); MEAN CORPUSCULAR HEMOGLOBIN 35.6 pg (28.0-32.0); MEAN CORPUSCULAR HGB CONC 35.3 g/dL (32.0-36.0); MEAN CORPUSCULAR VOLUME 100.7 fL (83.0-99.0); MEAN PLATELET VOLUME 9.5 fL (9.4-12.4); MONOCYTES ABSOLUTE AUTO 0.42 K/uL (0.00-0.80); MONOCYTES PERCENT AUTO 11.7 % (0.0-8.0); NEUTROPHILS ABSOLUTE AUTO 2.32 K/uL (1.80-7.70); NEUTROPHILS PERCENT AUTO 64.8 % (41.0-71.0); PLATELET COUNT,PLT 101 K/uL (150-400); RED BLOOD CELL COUNT 2.67 M/uL (4.52-5.90); WHITE BLOOD CELL COUNT,WBC 3.58 K/uL (3.9-11.3)
[2024-09-06 05:50] LABS: INR 1.44 (0.86-1.11)
[2024-09-06 06:09] LABS: ALBUMIN 1.9 g/dL (3.4-5.0); BILIRUBIN TOTAL 3.9 mg/dL (0.2-1.0); CALCIUM 7.4 mg/dL (8.5-10.1); CARBON DIOXIDE,CO2 28.4 mmol/L (21.0-32.0); CREATININE 0.8 mg/dL (0.8-1.3); EST CRCL DRUG DOSING (CG) 81.41 mL/min; MAGNESIUM 1.9 mg/dL (1.8-2.4); PHOSPHORUS 3.1 mg/dL (2.6-4.7); POTASSIUM,K 2.9 mmol/L (3.5-5.1); PROTEIN TOTAL,TP 3.9 g/dL (6.4-8.2)
[2024-09-06] MEDS: Folic Acid 1 MG Tab PO SCH (08:34)
[2024-09-06] MEDS: Potassium Chloride 20 MEQ Tab.ER PO SCH (08:34)
[2024-09-06] MEDS ORDERED: Escitalopram 10 MG Tab PO SCH (09:00)
[2024-09-06 19:15] LABS: CALCIUM 7.5 mg/dL (8.5-10.1); CARBON DIOXIDE,CO2 24.7 mmol/L (21.0-32.0); CREATININE 0.9 mg/dL (0.8-1.3); EST CRCL DRUG DOSING (CG) 72.37 mL/min; POTASSIUM,K 3.6 mmol/L (3.5-5.1)
[2024-09-06] MEDS: Thiamine 100 MG Tab PO SCH (21:32)
[2024-09-06] MEDS: Acetaminophen 325 MG Tab PO PRN (21:36)
[2024-09-07] MEDS: Ondansetron 4 MG/2 ML SDV IVPUSH PRN (01:33)
[2024-09-07 06:17] LABS: BASOPHILS ABSOLUTE AUTO 0.06 K/uL (0.00-0.20); BASOPHILS PERCENT AUTO 1.5 % (0.0-1.0); EOSINOPHILS ABSOLUTE AUTO 0.11 K/uL (0.00-0.45); EOSINOPHILS PERCENT AUTO 2.7 % (0.0-6.0); HEMATOCRIT 34.3 % (42.0-52.0); HEMOGLOBIN 11.5 g/dL (14.0-18.0); IMMATURE GRAN ABSOLUTE AUTO 0.07 K/uL (0.00-0.05); IMMATURE GRAN PERCENT AUTO 1.7 % (0.0-0.4); LYMPHOCYTES ABSOLUTE AUTO 1.24 K/uL (1.00-4.80); LYMPHOCYTES PERCENT AUTO 30.1 % (24.0-44.0); MEAN CORPUSCULAR HEMOGLOBIN 36.3 pg (28.0-32.0); MEAN CORPUSCULAR HGB CONC 33.5 g/dL (32.0-36.0); MEAN CORPUSCULAR VOLUME 108.2 fL (83.0-99.0); MEAN PLATELET VOLUME 9.3 fL (9.4-12.4); MONOCYTES ABSOLUTE AUTO 0.44 K/uL (0.00-0.80); MONOCYTES PERCENT AUTO 10.7 % (0.0-8.0); NEUTROPHILS PERCENT AUTO 53.3 % (41.0-71.0); NRBC ABSOLUTE 0.02 K/uL (0.00-0.02); NRBC PERCENT 0.5 /100WBC (0.0-0.2); PLATELET COUNT,PLT 102 K/uL (150-400); RED BLOOD CELL COUNT 3.17 M/uL (4.52-5.90); WHITE BLOOD CELL COUNT,WBC 4.12 K/uL (3.9-11.3)
[2024-09-07 06:44] LABS: A/G RATIO 0.8 (0.9-1.6); ALBUMIN 2.2 g/dL (3.4-5.0); BILIRUBIN TOTAL 4.2 mg/dL (0.2-1.0); CARBON DIOXIDE,CO2 22.3 mmol/L (21.0-32.0); CREATININE 0.7 mg/dL (0.8-1.3); EST CRCL DRUG DOSING (CG) 93.05 mL/min; MAGNESIUM 1.9 mg/dL (1.8-2.4); POTASSIUM,K 4.2 mmol/L (3.5-5.1)
[2024-09-07] MEDS ORDERED: oxyCODONE 5 MG Tab PO PRN (09:51)
[2024-09-08 06:34] LABS: BASOPHILS ABSOLUTE AUTO 0.05 K/uL (0.00-0.20); BASOPHILS PERCENT AUTO 1.1 % (0.0-1.0); EOSINOPHILS ABSOLUTE AUTO 0.09 K/uL (0.00-0.45); EOSINOPHILS PERCENT AUTO 2.1 % (0.0-6.0); IMMATURE GRAN ABSOLUTE AUTO 0.09 K/uL (0.00-0.05); IMMATURE GRAN PERCENT AUTO 2.1 % (0.0-0.4); LYMPHOCYTES ABSOLUTE AUTO 1.36 K/uL (1.00-4.80); LYMPHOCYTES PERCENT AUTO 31.3 % (24.0-44.0); MEAN CORPUSCULAR HEMOGLOBIN 36.2 pg (28.0-32.0); MEAN CORPUSCULAR HGB CONC 33.3 g/dL (32.0-36.0); MEAN CORPUSCULAR VOLUME 108.7 fL (83.0-99.0); MEAN PLATELET VOLUME 9.8 fL (9.4-12.4); MONOCYTES ABSOLUTE AUTO 0.68 K/uL (0.00-0.80); MONOCYTES PERCENT AUTO 15.6 % (0.0-8.0); NEUTROPHILS ABSOLUTE AUTO 2.08 K/uL (1.80-7.70); NEUTROPHILS PERCENT AUTO 47.8 % (41.0-71.0); NRBC ABSOLUTE 0.03 K/uL (0.00-0.02); NRBC PERCENT 0.7 /100WBC (0.0-0.2); PLATELET COUNT,PLT 109 K/uL (150-400); RED BLOOD CELL COUNT 2.76 M/uL (4.52-5.90); WHITE BLOOD CELL COUNT,WBC 4.35 K/uL (3.9-11.3)
[2024-09-08 06:55] LABS: A/G RATIO 0.8 (0.9-1.6); ALBUMIN 2.1 g/dL (3.4-5.0); BILIRUBIN TOTAL 3.5 mg/dL (0.2-1.0); CARBON DIOXIDE,CO2 28.4 mmol/L (21.0-32.0); CREATININE 0.8 mg/dL (0.8-1.3); EST CRCL DRUG DOSING (CG) 81.41 mL/min; MAGNESIUM 1.5 mg/dL (1.8-2.4); POTASSIUM,K 4.5 mmol/L (3.5-5.1); PROTEIN TOTAL,TP 4.7 g/dL (6.4-8.2)
[2024-09-08] MEDS: Magnesium Sulf/Wat 4 GM/100 mL 4 GM in Premix Bag 1 BAG IV ONE (08:24)
[2024-09-08 12:06] LABS: APPEARANCE,URINE CLEAR; BILIRUBIN,URINE NEGATIVE (NEGATIVE); COLOR,URINE YELLOW; GLUCOSE,URINE NEGATIVE (NEGATIVE); KETONES,URINE NEGATIVE (NEGATIVE); LEUKOCYTE ESTERASE,URINE NEGATIVE (NEGATIVE); NITRITE,URINE NEGATIVE (NEGATIVE); OCCULT BLOOD,URINE SMALL (NEGATIVE); PROTEIN,URINE NEGATIVE (NEGATIVE)
[2024-09-08 12:24] LABS: BACTERIA,URINE NOT SEEN (NEGATIVE); EPITHELIAL CELLS,URINE RARE (NONE-FEW); WBC,URINE 0-1 (0-5/HPF)
[2024-09-09 06:14] LABS: BASOPHILS ABSOLUTE AUTO 0.06 K/uL (0.00-0.20); BASOPHILS PERCENT AUTO 1.6 % (0.0-1.0); EOSINOPHILS PERCENT AUTO 2.6 % (0.0-6.0); HEMATOCRIT 33.7 % (42.0-52.0); IMMATURE GRAN ABSOLUTE AUTO 0.06 K/uL (0.00-0.05); IMMATURE GRAN PERCENT AUTO 1.6 % (0.0-0.4); LYMPHOCYTES ABSOLUTE AUTO 1.25 K/uL (1.00-4.80); LYMPHOCYTES PERCENT AUTO 32.6 % (24.0-44.0); MEAN CORPUSCULAR HEMOGLOBIN 35.9 pg (28.0-32.0); MEAN CORPUSCULAR HGB CONC 32.6 g/dL (32.0-36.0); MEAN CORPUSCULAR VOLUME 110.1 fL (83.0-99.0); MEAN PLATELET VOLUME 9.5 fL (9.4-12.4); MONOCYTES ABSOLUTE AUTO 0.76 K/uL (0.00-0.80); MONOCYTES PERCENT AUTO 19.8 % (0.0-8.0); NEUTROPHILS ABSOLUTE AUTO 1.61 K/uL (1.80-7.70); NEUTROPHILS PERCENT AUTO 41.8 % (41.0-71.0); PLATELET COUNT,PLT 110 K/uL (150-400); RED BLOOD CELL COUNT 3.06 M/uL (4.52-5.90); WHITE BLOOD CELL COUNT,WBC 3.84 K/uL (3.9-11.3)
[2024-09-09 06:42] LABS: A/G RATIO 0.7 (0.9-1.6); ALBUMIN 2.3 g/dL (3.4-5.0); BILIRUBIN TOTAL 2.9 mg/dL (0.2-1.0); CALCIUM 8.3 mg/dL (8.5-10.1); CREATININE 0.6 mg/dL (0.8-1.3); EST CRCL DRUG DOSING (CG) 108.55 mL/min; MAGNESIUM 2.6 mg/dL (1.8-2.4); POTASSIUM,K 4.5 mmol/L (3.5-5.1); PROTEIN TOTAL,TP 5.4 g/dL (6.4-8.2)
[2024-09-09] MEDS ORDERED: oxyCODONE 5 MG Tab PO PRN (07:01)
[2024-09-09] MEDS ORDERED: Potassium Chloride 20 MEQ Tab.ER PO SCH (09:00)
[2024-09-09] MEDS: Potassium Chloride 20 MEQ Tab.ER PO SCH (09:44)
[2024-09-09 13:44] VITALS: PULSE 88
[2024-09-09 15:12] VITALS: BP 126/82
== END 2024-09-09 10:50 | disposition home or self-care (01) | DRG 897 ==
LOC: MW.ED 07:13 → MW.MS 09:28
PROVIDERS: ADMIT Internal Medicine; ATTEND Internal Medicine
DX: F10.239 Alcohol dependence with withdrawal, unspecified (principal); E87.1 Hypo-osmolality and hyponatremia; G40.909 Epilepsy, unspecified, not intractable, without status epilepticus; F41.8 Other specified anxiety disorders; K21.9 Gastro-esophageal reflux disease without esophagitis; M19.90 Unspecified osteoarthritis, unspecified site; G43.909 Migraine, unspecified, not intractable, without status migrainosus; E87.6 Hypokalemia; E86.1 Hypovolemia; D64.9 Anemia, unspecified; D69.6 Thrombocytopenia, unspecified; Y90.4 Blood alcohol level of 80-99 mg/100 ml; H54.7 Unspecified visual loss; Z98.890 Other specified postprocedural states; S00.12XD Contusion of left eyelid and periocular area, subsequent encounter; Z88.4 Allergy status to anesthetic agent; Z88.8 Allergy status to other drugs, medicaments and biological substances; Z87.81 Personal history of (healed) traumatic fracture; Z87.891 Personal history of nicotine dependence; Z87.820 Personal history of traumatic brain injury; Z79.899 Other long term (current) drug therapy
CPT/HCPCS: 36415; 70450; 70450-26; 70486; 70486-26; 71045; 71045-26; 72125; 72125-26; 80048; 80053; 80307; 81001; 83690; 83735; 84100; 84295; 85025; 85610; 93005; 93010; 96361; 96374; 96375; 97530-GP; 99283; 99285-25; A9270-GY; J2060; J2405; J3360; J3411; J3475; J3480; J3490; J7030

== ENCOUNTER 2024-09-12 18:17 | Emergency (ER) | payer MEDICAID ==
[2024-09-12] MEDS ORDERED: Sodium Chloride 0.9% 2.5 ML Syringe FLUSH PRN (21:01)
[2024-09-12] MEDS ORDERED: Sodium Chloride 0.9% 20 ML SDV IV PRN (21:01)
[2024-09-12] MEDS ORDERED: Sodium Chloride 0.9% 10 ML Syringe FLUSH PRN (21:01)
[2024-09-12 21:08] LABS: APPEARANCE,URINE CLEAR; BILIRUBIN,URINE NEGATIVE (NEGATIVE); COLOR,URINE YELLOW; GLUCOSE,URINE NEGATIVE (NEGATIVE); KETONES,URINE NEGATIVE (NEGATIVE); LEUKOCYTE ESTERASE,URINE NEGATIVE (NEGATIVE); NITRITE,URINE NEGATIVE (NEGATIVE); OCCULT BLOOD,URINE NEGATIVE (NEGATIVE); PROTEIN,URINE NEGATIVE (NEGATIVE)
[2024-09-12 21:18] LABS: AMPHETAMINES SCREEN, URINE NEGATIVE (CUTOFF=500); BARBITURATE SCREEN,URINE NEGATIVE (CUTOFF=200); BENZODIAZEPINES SCREEN,URINE NEGATIVE (CUTOFF=150); BUPRENORPHINE SCREEN,URINE NEGATIVE (CUTOFF=10); METHADONE SCREEN, URINE NEGATIVE (CUTOFF=200); METHAMPHETAMINES SCREEN, URINE NEGATIVE (CUTOFF=500); OXYCODONE SCREEN,URINE NEGATIVE (CUT0FF=100); PCP SCREEN,URINE NEGATIVE (CUTOFF=25); THC SCREEN,URINE 20 NG/ML NEGATIVE (CUTOFF=50)
[2024-09-12 21:47] LABS: HEMATOCRIT 35.3 % (42.0-52.0); HEMOGLOBIN 11.5 g/dL (14.0-18.0); MEAN CORPUSCULAR HEMOGLOBIN 36.2 pg (28.0-32.0); MEAN CORPUSCULAR HGB CONC 32.6 g/dL (32.0-36.0); MEAN PLATELET VOLUME 9.3 fL (9.4-12.4); PLATELET COUNT,PLT 264 K/uL (150-400); RED BLOOD CELL COUNT 3.18 M/uL (4.52-5.90); WHITE BLOOD CELL COUNT,WBC 5.05 K/uL (3.9-11.3)
[2024-09-12 22:01] LABS: INR 0.99 (0.86-1.11)
[2024-09-12] MEDS: PHENobarbital Sodium 130 MG/ML SDV ONE (22:11)
[2024-09-12] MEDS: PHENobarbitaL sodium 130 MG in Sodium Chloride 0.9% 100 ML IV ONE (22:11)
[2024-09-12 22:17] LABS: A/G RATIO 0.8 (0.9-1.6); ALANINE AMINOTRANSFERASE,ALT 38 IU/L (14-63); ALBUMIN 2.9 g/dL (3.4-5.0); ALKALINE PHOSPHATASE 201 U/L (46-116); ASPARTATE AMNIOTRANSFERASE,AST 26 IU/L (15-37); BILIRUBIN TOTAL 3.3 mg/dL (0.2-1.0); BLOOD UREA NITROGEN,BUN 4 mg/dL (7.0-18.0); C-REACTIVE PROTEIN 1.18 mg/dL (<0.3); CALCIUM 8.4 mg/dL (8.5-10.1); CARBON DIOXIDE,CO2 22.8 mmol/L (21.0-32.0); CHLORIDE,CL 98 mmol/L (98-107); CREATININE 0.9 mg/dL (0.8-1.3); EST CRCL DRUG DOSING (CG) 69.72 mL/min; GLUCOSE RANDOM 80 mg/dL (74-106); LIPASE 51 U/L (16-77); PROTEIN TOTAL,TP 6.5 g/dL (6.4-8.2); SODIUM,NA 133 mmol/L (136-148)
[2024-09-12 22:24] LABS: ESTIMATED GFR 100 mL/min (>60); ETHANOL BLOOD MEDICAL < 3.0 mg/dL
[2024-09-12 22:32] LABS: BASOPHILS PERCENT MAN 0 % (0-1); EOSINOPHILS PERCENT MAN 2 % (0-6); LYMPHOCYTES ABSOLUTE MAN 1.82 K/uL (1.00-4.80); LYMPHOCYTES PERCENT MAN 36 % (24-44); MONOCYTES ABSOLUTE MAN 0.91 K/uL (0.00-0.80); MONOCYTES PERCENT MAN 18 % (0-8); SEG NEUTROPHILS ABSOLUTE MAN 2.22 K/uL (1.80-7.70); SEG NEUTROPHILS PERCENT MAN 44 % (41-71)
[2024-09-13] MEDS: Ziprasidone Mesylate 20 MG in Water For Injection, Sterile 1.2 ML IM ONE (00:45)
[2024-09-13 08:34] VITALS: BP 126/77; PULSE 84
== END 2024-09-13 08:33 | disposition home or self-care (01) ==
LOC: MW.ED 18:17
DX: G47.00 Insomnia, unspecified (principal); I10 Essential (primary) hypertension; Z86.73 Personal history of transient ischemic attack (TIA), and cerebral infarction without residual deficits; Z88.4 Allergy status to anesthetic agent; Z79.899 Other long term (current) drug therapy; Z75.8 Other problems related to medical facilities and other health care
CPT/HCPCS: 36415; 71045; 80053; 80305; 80307; 81003; 83690; 84484; 85025; 85610; 86140; 93005; 96365; 96372; 99284; J2560; J3486; 93010; 99283

== ENCOUNTER 2025-03-26 11:13 | Inpatient (IN) | payer MEDICAID ==
[2025-03-26] MEDS ORDERED: Sodium Chloride 0.9% 10 ML Syringe FLUSH PRN ×2 (11:18→15:33)
[2025-03-26] MEDS ORDERED: Sodium Chloride 0.9% 2.5 ML Syringe FLUSH PRN ×2 (11:18→15:33)
[2025-03-26 12:21] LABS: BASOPHILS ABSOLUTE AUTO 0.06 K/uL (0.00-0.20); BASOPHILS PERCENT AUTO 1.7 % (0.0-1.0); EOSINOPHILS ABSOLUTE AUTO 0.01 K/uL (0.00-0.45); EOSINOPHILS PERCENT AUTO 0.3 % (0.0-6.0); IMMATURE GRAN ABSOLUTE AUTO 0.02 K/uL (0.00-0.05); IMMATURE GRAN PERCENT AUTO 0.6 % (0.0-0.4); LYMPHOCYTES ABSOLUTE AUTO 0.71 K/uL (1.00-4.80); LYMPHOCYTES PERCENT AUTO 20.1 % (24.0-44.0); MEAN PLATELET VOLUME 9.0 fL (9.4-12.4); MONOCYTES ABSOLUTE AUTO 0.57 K/uL (0.00-0.80); MONOCYTES PERCENT AUTO 16.1 % (0.0-8.0); NEUTROPHILS ABSOLUTE AUTO 2.16 K/uL (1.80-7.70); NEUTROPHILS PERCENT AUTO 61.2 % (41.0-71.0); NRBC ABSOLUTE 0.00 K/uL (0.00-0.02); NRBC PERCENT 0.0 /100WBC (0.0-0.2); PLATELET COUNT,PLT 84 K/uL (150-400); RED BLOOD CELL COUNT 4.14 M/uL (4.52-5.90); WHITE BLOOD CELL COUNT,WBC 3.53 K/uL (3.9-11.3)
[2025-03-26 12:50] LABS: A/G RATIO 1.1 (0.9-1.6); ALANINE AMINOTRANSFERASE,ALT 83.0 IU/L (14-63); ASPARTATE AMNIOTRANSFERASE,AST 114.0 IU/L (15-37); BILIRUBIN TOTAL 2.5 mg/dL (0.2-1.0); BLOOD UREA NITROGEN,BUN 4.0 mg/dL (7.0-18.0); CARBON DIOXIDE,CO2 29.1 mmol/L (21.0-32.0); CHLORIDE,CL 91.0 mmol/L (98-107); CREATININE 0.9 mg/dL (0.8-1.3); EST CRCL DRUG DOSING (CG) 74.03 mL/min; ETHANOL BLOOD MEDICAL 238.0 mg/dL; GLUCOSE RANDOM 108.0 mg/dL (74-106); POTASSIUM,K 3.2 mmol/L (3.5-5.1); PROTEIN TOTAL,TP 6.5 g/dL (6.4-8.2); SODIUM,NA 134.0 mmol/L (136-148)
[2025-03-26 13:02] LABS: ESTIMATED GFR 99.0 mL/min (>60)
[2025-03-26] MEDS: LORazepam 2 MG/ML SDV IVPUSH ONE ×2 (15:17→17:41)
[2025-03-26] MEDS ORDERED: PHENobarbitaL sodium 260 MG in Sodium Chloride 0.9% 100 ML IV PRN (15:26)
[2025-03-26] MEDS: Thiamine 200 MG/2 ML MDV IVPUSH SCH (15:50)
[2025-03-26] MEDS: PHENobarbitaL sodium 260 MG in Sodium Chloride 0.9% 100 ML IV ONE (15:51)
[2025-03-26] MEDS: Folic Acid 1 MG/0.2 ML UD Syringe SUBCUT SCH (15:55)
[2025-03-26] MEDS: Pantoprazole 40 MG in Sodium Chloride 0.9% 10 ML IVPUSH SCH (15:56)
[2025-03-26] MEDS: Folic Acid 1 MG/0.2 ML UD Syringe IV SCH (16:00)
[2025-03-26] MEDS: NS with KCl 40mEq 1,000 ML IV SCH (16:03)
[2025-03-27 00:07] LABS: APPEARANCE,URINE CLEAR; GLUCOSE,URINE 100 mg/dL (NEGATIVE); OCCULT BLOOD,URINE NEGATIVE (NEGATIVE)
[2025-03-27 00:26] LABS: EPITHELIAL CELLS,URINE RARE (NONE-FEW)
[2025-03-27 06:10] LABS: BASOPHILS ABSOLUTE AUTO 0.04 K/uL (0.00-0.20); BASOPHILS PERCENT AUTO 0.9 % (0.0-1.0); EOSINOPHILS ABSOLUTE AUTO 0.06 K/uL (0.00-0.45); EOSINOPHILS PERCENT AUTO 1.4 % (0.0-6.0); IMMATURE GRAN ABSOLUTE AUTO 0.03 K/uL (0.00-0.05); IMMATURE GRAN PERCENT AUTO 0.7 % (0.0-0.4); LYMPHOCYTES ABSOLUTE AUTO 0.92 K/uL (1.00-4.80); LYMPHOCYTES PERCENT AUTO 21.4 % (24.0-44.0); MEAN PLATELET VOLUME 9.6 fL (9.4-12.4); MONOCYTES ABSOLUTE AUTO 0.53 K/uL (0.00-0.80); MONOCYTES PERCENT AUTO 12.3 % (0.0-8.0); NEUTROPHILS ABSOLUTE AUTO 2.72 K/uL (1.80-7.70); NEUTROPHILS PERCENT AUTO 63.3 % (41.0-71.0); NRBC ABSOLUTE 0.00 K/uL (0.00-0.02); NRBC PERCENT 0.0 /100WBC (0.0-0.2); PLATELET COUNT,PLT 82 K/uL (150-400); RED BLOOD CELL COUNT 3.22 M/uL (4.52-5.90); WHITE BLOOD CELL COUNT,WBC 4.30 K/uL (3.9-11.3)
[2025-03-27 06:53] LABS: A/G RATIO 1.0 (0.9-1.6); ALANINE AMINOTRANSFERASE,ALT 59.0 IU/L (14-63); ASPARTATE AMNIOTRANSFERASE,AST 78.0 IU/L (15-37); BILIRUBIN TOTAL 3.5 mg/dL (0.2-1.0); BLOOD UREA NITROGEN,BUN 5.0 mg/dL (7.0-18.0); CARBON DIOXIDE,CO2 24.8 mmol/L (21.0-32.0); CHLORIDE,CL 98.0 mmol/L (98-107); CREATININE 0.8 mg/dL (0.8-1.3); EST CRCL DRUG DOSING (CG) 80.43 mL/min; GLUCOSE RANDOM 89.0 mg/dL (74-106); PHOSPHORUS 2.6 mg/dL (2.6-4.7); POTASSIUM,K 3.2 mmol/L (3.5-5.1); PROTEIN TOTAL,TP 5.1 g/dL (6.4-8.2); SODIUM,NA 132.0 mmol/L (136-148)
[2025-03-27 06:59] LABS: ESTIMATED GFR 103.0 mL/min (>60)
[2025-03-27] MEDS: Potassium Chloride 20 MEQ Tab.ER PO ONE (09:22)
[2025-03-28 07:55] LABS: BASOPHILS ABSOLUTE AUTO 0.06 K/uL (0.00-0.20); BASOPHILS PERCENT AUTO 1.3 % (0.0-1.0); EOSINOPHILS ABSOLUTE AUTO 0.12 K/uL (0.00-0.45); EOSINOPHILS PERCENT AUTO 2.6 % (0.0-6.0); IMMATURE GRAN ABSOLUTE AUTO 0.03 K/uL (0.00-0.05); IMMATURE GRAN PERCENT AUTO 0.7 % (0.0-0.4); LYMPHOCYTES ABSOLUTE AUTO 1.70 K/uL (1.00-4.80); LYMPHOCYTES PERCENT AUTO 37.5 % (24.0-44.0); MEAN PLATELET VOLUME 9.6 fL (9.4-12.4); MONOCYTES ABSOLUTE AUTO 0.55 K/uL (0.00-0.80); MONOCYTES PERCENT AUTO 12.1 % (0.0-8.0); NEUTROPHILS ABSOLUTE AUTO 2.07 K/uL (1.80-7.70); NEUTROPHILS PERCENT AUTO 45.8 % (41.0-71.0); NRBC ABSOLUTE 0.00 K/uL (0.00-0.02); NRBC PERCENT 0.0 /100WBC (0.0-0.2); PLATELET COUNT,PLT 93 K/uL (150-400); RED BLOOD CELL COUNT 3.45 M/uL (4.52-5.90); WHITE BLOOD CELL COUNT,WBC 4.53 K/uL (3.9-11.3)
[2025-03-28 08:13] LABS: A/G RATIO 1.0 (0.9-1.6); ALANINE AMINOTRANSFERASE,ALT 52.0 IU/L (14-63); ASPARTATE AMNIOTRANSFERASE,AST 58.0 IU/L (15-37); BILIRUBIN TOTAL 3.0 mg/dL (0.2-1.0); BLOOD UREA NITROGEN,BUN 6.0 mg/dL (7.0-18.0); CARBON DIOXIDE,CO2 23.5 mmol/L (21.0-32.0); CHLORIDE,CL 100.0 mmol/L (98-107); CREATININE 0.8 mg/dL (0.8-1.3); EST CRCL DRUG DOSING (CG) 78.3 mL/min; GLUCOSE RANDOM 86.0 mg/dL (74-106); POTASSIUM,K 4.3 mmol/L (3.5-5.1); PROTEIN TOTAL,TP 5.5 g/dL (6.4-8.2); SODIUM,NA 131.0 mmol/L (136-148)
[2025-03-28 08:14] LABS: ESTIMATED GFR 103.0 mL/min (>60)
[2025-03-29 08:25] LABS: BASOPHILS ABSOLUTE AUTO 0.05 K/uL (0.00-0.20); BASOPHILS PERCENT AUTO 1.0 % (0.0-1.0); EOSINOPHILS ABSOLUTE AUTO 0.13 K/uL (0.00-0.45); EOSINOPHILS PERCENT AUTO 2.7 % (0.0-6.0); IMMATURE GRAN ABSOLUTE AUTO 0.03 K/uL (0.00-0.05); IMMATURE GRAN PERCENT AUTO 0.6 % (0.0-0.4); LYMPHOCYTES ABSOLUTE AUTO 1.97 K/uL (1.00-4.80); LYMPHOCYTES PERCENT AUTO 41.1 % (24.0-44.0); MEAN PLATELET VOLUME 10.2 fL (9.4-12.4); MONOCYTES ABSOLUTE AUTO 0.57 K/uL (0.00-0.80); MONOCYTES PERCENT AUTO 11.9 % (0.0-8.0); NEUTROPHILS ABSOLUTE AUTO 2.04 K/uL (1.80-7.70); NEUTROPHILS PERCENT AUTO 42.7 % (41.0-71.0); NRBC ABSOLUTE 0.00 K/uL (0.00-0.02); NRBC PERCENT 0.0 /100WBC (0.0-0.2); PLATELET COUNT,PLT 116 K/uL (150-400); RED BLOOD CELL COUNT 3.57 M/uL (4.52-5.90); WHITE BLOOD CELL COUNT,WBC 4.79 K/uL (3.9-11.3)
[2025-03-29 08:43] LABS: A/G RATIO 0.9 (0.9-1.6); ALANINE AMINOTRANSFERASE,ALT 52.0 IU/L (14-63); ASPARTATE AMNIOTRANSFERASE,AST 53.0 IU/L (15-37); BILIRUBIN TOTAL 2.5 mg/dL (0.2-1.0); BLOOD UREA NITROGEN,BUN 9.0 mg/dL (7.0-18.0); CARBON DIOXIDE,CO2 25.1 mmol/L (21.0-32.0); CHLORIDE,CL 100.0 mmol/L (98-107); CREATININE 0.9 mg/dL (0.8-1.3); EST CRCL DRUG DOSING (CG) 69.6 mL/min; GLUCOSE RANDOM 96.0 mg/dL (74-106); POTASSIUM,K 4.0 mmol/L (3.5-5.1); PROTEIN TOTAL,TP 6.0 g/dL (6.4-8.2); SODIUM,NA 131.0 mmol/L (136-148)
[2025-03-29 08:44] LABS: ESTIMATED GFR 99.0 mL/min (>60)
[2025-03-29 15:47] VITALS: BP 109/73; PULSE 75
== END 2025-03-29 14:24 | disposition home or self-care (01) | DRG 897 ==
LOC: MW.ED 11:13 → MW.MS 13:27 → OBSVTOIN 15:55 → MW.ICU 16:44 → MW.MS 03-28 11:27
PROVIDERS: ADMIT Internal Medicine; ATTEND Internal Medicine
DX: F10.230 Alcohol dependence with withdrawal, uncomplicated (principal); F10.220 Alcohol dependence with intoxication, uncomplicated; H54.7 Unspecified visual loss; I10 Essential (primary) hypertension; K21.9 Gastro-esophageal reflux disease without esophagitis; M19.90 Unspecified osteoarthritis, unspecified site; G43.909 Migraine, unspecified, not intractable, without status migrainosus; F41.9 Anxiety disorder, unspecified; F32.A Depression, unspecified; G40.909 Epilepsy, unspecified, not intractable, without status epilepticus; E87.6 Hypokalemia; D69.59 Other secondary thrombocytopenia; R74.01 Elevation of levels of liver transaminase levels; E80.6 Other disorders of bilirubin metabolism; Z88.8 Allergy status to other drugs, medicaments and biological substances; Z79.899 Other long term (current) drug therapy; Z87.81 Personal history of (healed) traumatic fracture; Z86.73 Personal history of transient ischemic attack (TIA), and cerebral infarction without residual deficits; Z98.890 Other specified postprocedural states; Z91.81 History of falling
CPT/HCPCS: 36415; 70450; 70450-26; 71045; 71045-26; 80053; 80307; 81001; 82947; 83690; 83735; 84100; 85025; 96361; 96374; 97161-GP; 97530-GP; 99285; 99285-25; A9270-GY; J2060; J2470; J2560; J3411; J3480; J3490; J7030

== ENCOUNTER 2025-04-15 15:06 | Emergency (ER) | payer MEDICAID ==
[2025-04-15 15:44] LABS: BASOPHILS ABSOLUTE AUTO 0.09 K/uL (0.00-0.20); BASOPHILS PERCENT AUTO 2.4 % (0.0-1.0); EOSINOPHILS ABSOLUTE AUTO 0.03 K/uL (0.00-0.45); EOSINOPHILS PERCENT AUTO 0.8 % (0.0-6.0); IMMATURE GRAN ABSOLUTE AUTO 0.02 K/uL (0.00-0.05); IMMATURE GRAN PERCENT AUTO 0.5 % (0.0-0.4); LYMPHOCYTES ABSOLUTE AUTO 1.74 K/uL (1.00-4.80); LYMPHOCYTES PERCENT AUTO 47.0 % (24.0-44.0); MEAN PLATELET VOLUME 9.8 fL (9.4-12.4); MONOCYTES ABSOLUTE AUTO 0.22 K/uL (0.00-0.80); MONOCYTES PERCENT AUTO 5.9 % (0.0-8.0); NEUTROPHILS ABSOLUTE AUTO 1.60 K/uL (1.80-7.70); NEUTROPHILS PERCENT AUTO 43.4 % (41.0-71.0); NRBC ABSOLUTE 0.00 K/uL (0.00-0.02); NRBC PERCENT 0.0 /100WBC (0.0-0.2); PLATELET COUNT,PLT 329 K/uL (150-400); RED BLOOD CELL COUNT 3.96 M/uL (4.52-5.90); WHITE BLOOD CELL COUNT,WBC 3.70 K/uL (3.9-11.3)
[2025-04-15 15:50] LABS: INR 0.98 (0.86-1.11)
[2025-04-15 15:50] LABS: APPEARANCE,URINE CLEAR; GLUCOSE,URINE NEGATIVE (NEGATIVE); OCCULT BLOOD,URINE NEGATIVE (NEGATIVE)
[2025-04-15] MEDS: Activated Charcoal/Water Susp 50 GM/240 ML Tube PO ONE (15:56)
[2025-04-15 15:57] LABS: A/G RATIO 1.1 (0.9-1.6); ALANINE AMINOTRANSFERASE,ALT 31 IU/L (14-63); ASPARTATE AMNIOTRANSFERASE,AST 59 IU/L (15-37); BILIRUBIN TOTAL 1.2 mg/dL (0.2-1.0); BLOOD UREA NITROGEN,BUN 5 mg/dL (7.0-18.0); CARBON DIOXIDE,CO2 20.1 mmol/L (21.0-32.0); CHLORIDE,CL 106 mmol/L (98-107); CREATININE 0.8 mg/dL (0.8-1.3); EST CRCL DRUG DOSING (CG) 80.43 mL/min; GLUCOSE RANDOM 105 mg/dL (74-106); POTASSIUM,K 4.2 mmol/L (3.5-5.1); PROTEIN TOTAL,TP 7.0 g/dL (6.4-8.2); SODIUM,NA 142 mmol/L (136-148)
[2025-04-15 15:58] LABS: ESTIMATED GFR 103 mL/min (>60); ETHANOL BLOOD MEDICAL 312 mg/dL
[2025-04-15 16:00] LABS: AMPHETAMINES SCREEN, URINE NEGATIVE (CUTOFF=500); BUPRENORPHINE SCREEN,URINE NEGATIVE (CUTOFF=10); METHADONE SCREEN, URINE NEGATIVE (CUTOFF=200); METHAMPHETAMINES SCREEN, URINE NEGATIVE (CUTOFF=500); OXYCODONE SCREEN,URINE NEGATIVE (CUT0FF=100); PCP SCREEN,URINE NEGATIVE (CUTOFF=25); THC SCREEN,URINE 20 NG/ML NEGATIVE (CUTOFF=50)
[2025-04-15] MEDS ORDERED: Thiamine 200 MG/2 ML MDV IVPUSH ONE (17:29)
[2025-04-15] MEDS: Magnesium Sulfate 2 GM/50 mL 2 GM in Premix Bag 1 BAG IV ONE (18:02)
[2025-04-15] MEDS: hydrALAZINE 20 MG/ML SDV IVPUSH ONE (19:18)
[2025-04-15] MEDS: Ondansetron 4 MG/2 ML SDV IVPUSH ONE (20:39)
[2025-04-15] MEDS: PHENobarbital Sodium 130 MG/ML SDV IVPUSH PRN (20:50)
[2025-04-16] MEDS ORDERED: droPERidol 2.5 MG/ML SDV IVPUSH ONE (00:11)
[2025-04-16] MEDS: droPERidol 2.5 MG/ML SDV IVPUSH ONE (00:16)
[2025-04-16 03:33] LABS: BASOPHILS ABSOLUTE AUTO 0.07 K/uL (0.00-0.20); BASOPHILS PERCENT AUTO 0.7 % (0.0-1.0); EOSINOPHILS ABSOLUTE AUTO 0.00 K/uL (0.00-0.45); EOSINOPHILS PERCENT AUTO 0.0 % (0.0-6.0); IMMATURE GRAN ABSOLUTE AUTO 0.02 K/uL (0.00-0.05); IMMATURE GRAN PERCENT AUTO 0.2 % (0.0-0.4); LYMPHOCYTES ABSOLUTE AUTO 1.22 K/uL (1.00-4.80); LYMPHOCYTES PERCENT AUTO 12.6 % (24.0-44.0); MEAN PLATELET VOLUME 9.3 fL (9.4-12.4); MONOCYTES ABSOLUTE AUTO 0.67 K/uL (0.00-0.80); MONOCYTES PERCENT AUTO 6.9 % (0.0-8.0); NEUTROPHILS ABSOLUTE AUTO 7.74 K/uL (1.80-7.70); NEUTROPHILS PERCENT AUTO 79.6 % (41.0-71.0); NRBC ABSOLUTE 0.00 K/uL (0.00-0.02); NRBC PERCENT 0.0 /100WBC (0.0-0.2); PLATELET COUNT,PLT 246 K/uL (150-400); RED BLOOD CELL COUNT 3.14 M/uL (4.52-5.90); WHITE BLOOD CELL COUNT,WBC 9.72 K/uL (3.9-11.3)
[2025-04-16 03:58] LABS: A/G RATIO 1.1 (0.9-1.6); ALANINE AMINOTRANSFERASE,ALT 17.0 IU/L (14-63); ASPARTATE AMNIOTRANSFERASE,AST 36.0 IU/L (15-37); BILIRUBIN TOTAL 1.2 mg/dL (0.2-1.0); BLOOD UREA NITROGEN,BUN 3.0 mg/dL (7.0-18.0); CARBON DIOXIDE,CO2 22.6 mmol/L (21.0-32.0); CHLORIDE,CL 111.0 mmol/L (98-107); CREATININE 0.7 mg/dL (0.8-1.3); EST CRCL DRUG DOSING (CG) 91.92 mL/min; ETHANOL BLOOD MEDICAL 4.0 mg/dL; GLUCOSE RANDOM 85.0 mg/dL (74-106); POTASSIUM,K 4.3 mmol/L (3.5-5.1); PROTEIN TOTAL,TP 5.6 g/dL (6.4-8.2); SODIUM,NA 143.0 mmol/L (136-148)
[2025-04-16 04:03] LABS: ESTIMATED GFR 107.0 mL/min (>60)
[2025-04-16 06:46] VITALS: BP 135/84; PULSE 92
[2025-04-16] MEDS: Ondansetron 4 MG/2 ML SDV IVPUSH ONE (09:04)
[2025-04-16] MEDS: PHENobarbital Sodium 130 MG/ML SDV IVPUSH STA (09:05)
== END 2025-04-16 09:46 ==
LOC: MW.ED 15:06
DX: T42.6X2A Poisoning by other antiepileptic and sedative-hypnotic drugs, intentional self-harm, initial encounter (principal); T44.7X2A Poisoning by beta-adrenoreceptor antagonists, intentional self-harm, initial encounter; F10.130 Alcohol abuse with withdrawal, uncomplicated; I10 Essential (primary) hypertension; K21.9 Gastro-esophageal reflux disease without esophagitis; Z86.73 Personal history of transient ischemic attack (TIA), and cerebral infarction without residual deficits; Y90.9 Presence of alcohol in blood, level not specified
CPT/HCPCS: 36415; 80053; 80143; 80179; 80305; 80307; 81003; 83735; 84484; 85025; 85610; 93005; 96361; 96365; 96367; 96375; 96376; 99285; A9270; J1790; J2405; J2560; J3411; J3475; J7030; J7050; 93010